=== PATIENT | male | born 1965 | race Caucasian/White ===

== ENCOUNTER 2018-09-24 21:06 | Inpatient (IN) | payer OTHER ==
--- NOTE | 2018-09-24 21:37 | ED Physician Chart ---
ED Chief Complaint/HPI - Patient Information Date Seen:: 09/24/18 Time Seen:: 21:14 Chief Complaint:: swollen legs History of Present Illness:: this is a 53 yo male diabetic, congestive heart failure, atrial fib patient was sent to this er for an evaluation and treatment. he has also been having episodes of aggressive behaviour. the patient is also concerned about a sore on his buttocks. Allergies:: Allergies Allergy/AdvReac Type Severity Reaction Status Date / Time No Known Allergies Allergy Verified 09/24/18 21:08 Vitals:: Vital Signs - 8 hr 09/24/18 21:08 Temp 97.7 F HR 135 RR 18 BP 122/81 O2 Sat % 99 Historian:: Patient, Medical Records Review:: Nurse's Note Reviewed, Transfer documents Reviewed ED Review of Systems - Review of Systems General/Constitutional: No fever, No chills, No weight loss, No weakness, No diaphoresis, Edema, No loss of appetite Skin: Skin lesions (over both legs), Rash (on the face), No rash, No bruising Head: No headache, No light-headedness Eyes: No loss of vision, No pain, No diplopia ENT: No earache, No nasal drainage, No sore throat, No tinnitus Neck: No neck pain, No swelling, No thyromegaly, No stiffness, No mass noted Cardio Vascular: No chest pain, Palpitations, No PND, orthopnea, edema Pulmonary: SOB, No cough, No sputum, No wheezing GI: No nausea, No vomiting, No diarrhea, No pain, No melena, No hematochezia, No constipation, No hematemesis G/U: No dysuria, No frequency, No hematuria Musculoskeletal: No bone or joint pain, No back pain, No muscle pain, Other ( severe 4+ pitting edema of both lower extremities) Endocrine: No polyuria, No polydipsia Psychiatric: Prior psych history, No prior psych history, Depression, No anxiety , No suicidal ideation Hematopoietic: No bruising, No lymphadenopathy Allergic/Immuno: No urticaria, No angioedema Neurological: No syncope, No focal symptoms, No weakness, No paresthesia, No headache, No seizure, No dizziness, No confusion, No vertigo ED Past Medical History - Past Medical History Obtainable: Yes Past Medical History: HTN, DM, CAD, CHF, Asthma/COPD, Dementia Family Medical History - Family Member Mother History Unknown: Yes ED Physical Exam - Physical Examination General/Constitutional: Awake, Well-developed, well-nourished, Alert, No distress, GCS 15, Non-toxic appearing, Ambulatory (unable to walk without help because of the severe edema of both lower extremities.) Head: Atraumatic Eyes: Lids, conjuctiva normal, PERRL, EOMI Skin: Nl inspection, No rash (skin rash on the face and lower extremities.), No skin lesions, No ecchymosis, Well hydrated, No lymphadenopathy ENMT: External ears, nose nl, Nasal exam nl, Lips, teeth, gums nl Neck: Nontender, Full ROM w/o pain, No JVD, No nuchal rigidity, No bruit, No mass, No stridor Respiratory: Nl effort/Exclusion, Clear to Auscultation, No Wheeze/Rhonchi/ Rales (bilateral rales) Cardio Vascular: RRR (rapid rate of 130 and irregular (a-fib)), No murmur, gallop, rubs, NL S1 S2 GI: No tenderness/rebounding/guarding, No organomegaly, No hernia, Normal BS's, Nondistended (g-tube noted in place), No mass/bruits, No McBurney tenderness Other GI comments:: there is a red tender area stage ii decub noted on the coccyx area : No CVA tenderness Extremities: No tenderness or effusion, Full ROM, normal strength in all extremities, No edema, Normal digits & nails Other Extremities comments:: severe edema of both lower extremities Neuro/Psych: Alert/oriented, DTR's symmetric, Normal sensory exam, Normal motor strength, Judgement/insight normal, Mood normal (depressed), Normal gait, No focal deficits Misc: Normal back, No paraspinal tenderness ED Labs/Radiology/EKG Results - Lab Results Results: see blood work done on 09-19-18 noted - Radiology Results Results: chest x-ray = acute pulmonary edema - EKG Interpretations EKG Time:: 21:19 Rate & Rhythm: rate = 130, a fib [place]: left ED Assessment - Assessment General Assessment: chronic chr sever bilateral edema ED Septic Shock - . Is Septic Shock (SBP<90, OR Lactate>4 mmol\L) present?: No - <6hrs of presentation: Vital Signs: Vital Signs - 8 hr 09/24/18 21:08 Temp 97.7 F HR 135 RR 18 BP 122/81 O2 Sat % 99 ED Reassessment (Disposition) - Reassessment Reassessment Condition:: Improved - Diagnosis Diagnosis:: acute pulmonary edema chronic chf diabetes mellitus stage II COCCYX ULCER NOTED - Patient Disposition Discharge/Transfer:: Acute Care w/in this hosp Admitting Medical Physician:: Neo Nixon Condition at Disposition:: Improved
[2018-09-24 21:50] LABS: PaCO2 37.2 mmHg (35.0-45.0); pH 7.32 (7.35-7.45)
[2018-09-24 21:52] LABS: PaO2 27.8 mmHg (80.0-100.0)
[2018-09-24] MEDS ORDERED: Diltiazem 30 mg Tab GT STA (22:50)
[2018-09-24] MEDS ORDERED: Diltiazem 30 mg Tab ONE (23:22)
[2018-09-25 00:21] LABS: URINE SOURCE CLEAN C
[2018-09-25 00:27] LABS: URINE BILIRUBIN NEGATIVE (NEGATIVE); URINE BLOOD LARGE (NEGATIVE); URINE GLUCOSE (UA) >=1000 mg/dL (NEGATIVE); URINE KETONE NEGATIVE (NEGATIVE); URINE LEUKOCYTE ESTERASE TRACE (NEGATIVE); URINE MICROSCOPIC INDICATED? YES; URINE NITRATE POSITIVE (NEGATIVE); URINE PH 5.5 (4.6 - 8.0); URINE PROTEIN 30 mg/dL (NEGATIVE); URINE UROBILINOGEN 0.2 E.U./dL (0.2 - 1.0)
[2018-09-25 00:32] LABS: URINE COLOR YELLOW
[2018-09-25 00:33] LABS: URINE CLARITY SLIGHT HAZY (CLEAR)
[2018-09-25 00:43] LABS: URINE BACTERIA 1+ /hpf (NONE SEEN); URINE EPITHELIAL CELLS FEW /lpf (FEW)
[2018-09-25 02:41] VITALS: BP 121/71
[2018-09-25] MEDS ORDERED: Dextrose 50% 50 mL Abboject IVP PRN (03:47)
[2018-09-25] MEDS ORDERED: GLUCAGON HCl 1 MG KIT IM PRN (03:47)
[2018-09-25] MEDS: INSULIN LISPRO SLIDING SCALE 100 UNITS/ML UNIT SUBQ SCH ×2 (06:40→17:02)
[2018-09-25 06:43] LABS: % BASOPHILS 1.5 % (0.0-2.0); % LYMPHOCYTES 15.8 % (20.0-50.0); % NEUTROPHILS 74.7 % (40.0-80.0); BASOPHILE ABSOLUTE 0.1 Th/cumm (0-0.2); EOSINOPHILE ABSOLUTE 0.1 Th/cmm (0.1-0.4); HEMATOCRIT 37.6 % (41.0-60); HEMOGLOBIN 12.2 gm/dL (12-16); LYMPHOCYTE ABSOLUTE 1.2 Th/cmm (1.5-3.0); MEAN CORPUSCULAR HEMOGLOBIN 28.8 pg (26.0-30.0); MEAN CORPUSCULAR HGB CONC 32.3 pg (28.0-36.0); MEAN PLATELET VOLUME 9.3 fl; MONOCYTE ABSOLUTE 0.4 Th/cmm (0.3-1.0); NEUTROPHILE ABSOLUTE 5.6 Th/cmm (1.8-8.0); PLATELET COUNT 181 Th/cmm (150-400); RED BLOOD COUNT 4.23 Mil/cmm (4.30-5.70); RED CELL DISTRIBUTION WIDTH 22.4 % (11.5-20.0); WHITE BLOOD COUNT 7.4 Th/cmm (4.8-10.8)
[2018-09-25] MEDS ORDERED: cefTRIAXone 1 GM in Sodium Chloride 0.9% 50 ML IV SCH (07:00)
[2018-09-25 07:03] LABS: ALB/GLOB RATIO 1.2 (1.0-1.8); ALBUMIN 3.5 gm/dL (4.2-5.5); ANION GAP 13.7 (7.0-16.0); BILIRUBIN,TOTAL 1.3 mg/dL (0.3-1.0); CALCIUM SERUM 8.5 mg/dL (8.6-10.3); CARBON DIOXIDE 22.1 mEq/L (21.0-31.0); CREATININE - SERUM 2.3 mg/dL (0.7-1.3); GFR AFRICAN-AMERICAN 38.2 ml/min (>90); GFR NON AFRICAN-AMERICAN 31.5 ml/min; POTASSIUM SERUM 4.8 mEq/L (3.5-5.1); TOTAL PROTEIN,SERUM 6.4 gm/dL (6.0-8.3)
[2018-09-25] MEDS ORDERED: Non-Formulary Item 1 EA (Acetaminophen [Acetaminophen] 650 MG) GT PRN (09:27)
[2018-09-25] MEDS ORDERED: ALBUTEROL SULFATE 2.5 MG IH SCH (09:30)
[2018-09-25] MEDS ORDERED: Albuterol Nebulizer 2.5mg/3mL HHN PRN (09:35)
--- NOTE | 2018-09-25 09:46 | Diagnostic Imaging Report ---
CHEST X-RAY: AP view INDICATION: Shortness of breath COMPARISON: None FINDINGS: Right perihilar and right infrahilar infiltrates are noted. Cardiomegaly is noted with atherosclerosis. The osseous structures demonstrate degenerative changes. IMPRESSION: Right perihilar and right infrahilar infiltrates. Clinical correlation is recommended. There may be a mild degree of congestion. Cardiomegaly and atherosclerotic vascular disease.
[2018-09-25] MEDS ORDERED: Diltiazem 5 mg/mL 5mL Vial IVP PRN (11:22)
[2018-09-25] MEDS ORDERED: Non-Formulary Item 1 EA (Apixaban [Eliquis] 5 MG) PO SCH (17:00)
--- NOTE | 2018-09-25 18:08 | History & Physical ---
ADMIT DATE: 09/25/2018 HISTORY OF PRESENT ILLNESS: This is a 53-year-old male diabetic patient, history of congestive heart failure, history of atrial fibrillation. This patient is a resident of [facility] where I am following the patient and apparently the patient did an aggressive behavior and also was complaining of soreness in his back with decubiti and also has bilateral leg swelling and cellulitis. He was evaluated and was admitted for those reasons including congestive heart failure, atrial fibrillation, diabetes uncontrolled, asthma, COPD exacerbation, dementia, aggressive behavior, bilateral lower leg cellulitis, buttock decubiti, rule out sepsis and encephalopathy. The patient's nurses' notes were reviewed, Emergency Room notes were reviewed. REVIEW OF SYSTEMS: No fever, skin lesions of both lower legs as well as a rash on the face as well as decubiti in the buttocks area. Otherwise, negative. PAST MEDICAL HISTORY: As enumerated before, history of hypertension, history of diabetes, history of coronary artery disease, history of congestive heart failure, history of asthma/COPD, history of dementia. PHYSICAL EXAMINATION: GENERAL: The patient is awake, alert, not in acute distress. VITAL SIGNS: Stable. HEAD: Normal. ENT: Normal. Face was flushed. NECK: Supple, nontender. LUNGS: Bilaterally decreased. CARDIOVASCULAR: S1, S2 heard. ABDOMEN: G-tube is in place. EXTREMITIES: Bilateral leg swelling as well as erythema and tenderness. CENTRAL NERVOUS SYSTEM: The patient is awake, alert, slightly confused, at times is very aggressive. DIAGNOSES: Bilateral lower leg cellulitis, sacral decubiti, sepsis, aggressive behavior, increasing dementia, history of dementia, history of hypertension, congestive heart failure, history of diabetes, history of coronary artery disease. PLAN: The patient is going to have septic workup. We are going to give IV antibiotics. I will have ID doctor see the patient and I will have Wound Care to take care of the patient. I will also have psychiatrist, Dr. Mancini, see the patient, and I will also have Dr. Jose Harrison see the patient. I will follow the patient. JOB# [id number]
[2018-09-25] MEDS ORDERED: Piperacillin Sodium/Tazobact 3.375 gm Vial IV ONE (21:09)
[2018-09-26 05:04] LABS: % EOSINOPHILS 0.9 % (0.0-5.0); % LYMPHOCYTES 14.3 % (20.0-50.0); % NEUTROPHILS 76.8 % (40.0-80.0); BASOPHILE ABSOLUTE 0.1 Th/cumm (0-0.2); EOSINOPHILE ABSOLUTE 0.1 Th/cmm (0.1-0.4); HEMATOCRIT 35.4 % (41.0-60); HEMOGLOBIN 11.7 gm/dL (12-16); LYMPHOCYTE ABSOLUTE 1.1 Th/cmm (1.5-3.0); MEAN CELL VOLUME 87.9 fl (80-99); MEAN CORPUSCULAR HEMOGLOBIN 29.1 pg (26.0-30.0); MEAN CORPUSCULAR HGB CONC 33.1 pg (28.0-36.0); MEAN PLATELET VOLUME 9.1 fl; MONOCYTE ABSOLUTE 0.6 Th/cmm (0.3-1.0); NEUTROPHILE ABSOLUTE 6.1 Th/cmm (1.8-8.0); PLATELET COUNT 188 Th/cmm (150-400); RED BLOOD COUNT 4.03 Mil/cmm (4.30-5.70); RED CELL DISTRIBUTION WIDTH 21.5 % (11.5-20.0)
[2018-09-26 05:45] LABS: CALCIUM SERUM 8.5 mg/dL (8.6-10.3); CARBON DIOXIDE 19.9 mEq/L (21.0-31.0); CREATININE - SERUM 2.3 mg/dL (0.7-1.3); GFR AFRICAN-AMERICAN 38.2 ml/min (>90); GFR NON AFRICAN-AMERICAN 31.5 ml/min; POTASSIUM SERUM 3.9 mEq/L (3.5-5.1)
[2018-09-26] MEDS ORDERED: Piperacillin Sodium/Tazobact 3.375 gm Vial IV ONE (06:18)
--- NOTE | 2018-09-26 06:18 | Consultation ---
DATE OF CONSULTATION: 09/25/2018 INFECTIOUS DISEASE CONSULTATION REFERRING PHYSICIAN: Dr. Nixon. REASON FOR CONSULTATION: Cellulitis of both legs and arms. HISTORY OF PRESENT ILLNESS: The patient is a 53-year-old male with a past medical history of CHF, diabetes mellitus type 2, and atrial fibrillation, brought to the ER for aggressive behavior. The patient also found to have redness and swelling of both lower extremities. There are some scabbed wounds also. No pus, no discharge. Similarly, the patient has some redness of the forearm and hands. In the back, the patient had a stage 2 ulceration of the inner side of the cheek. On initial evaluation, the patient was afebrile and WBC count was 7400. The patient also found to have mild UTI. The patient was started on Rocephin, which was changed to vancomycin and Zosyn. ID consult was called for further evaluation and management. PAST MEDICAL HISTORY: 1. Diabetes mellitus type 2. 2. CHF. 3. Atrial fibrillation. 4. Coronary artery disease. 5. Asthma. 6. COPD. 7. Dementia. ALLERGIES: NKDA. MEDICATIONS: As per medication reconciliation sheet. Antibiotic balbuena, currently the patient is receiving vancomycin and Zosyn started today just few hours ago. SOCIAL HISTORY: The patient lives in a nursing facility. No history of smoking, alcohol or drug use. FAMILY HISTORY: Unknown. REVIEW OF SYSTEMS: The patient is a poor historian, unable to give any history, but as per the records: GENERAL: The patient has no fever, no chills. HEENT: No diplopia, no photophobia. RESPIRATORY: No cough, no shortness of breath. CARDIOVASCULAR: No chest pain or palpitation. GASTROINTESTINAL: No nausea, no vomiting, no diarrhea, no constipation. GENITOURINARY: No dysuria. NEUROLOGIC: Alert and awake. No focal neuro deficit. EXTREMITIES: The patient has swelling and redness of both lower extremities with a scabbed wound. PHYSICAL EXAMINATION: VITAL SIGNS: Current vital signs shows temperature 97.3 degrees Fahrenheit, pulse 130, respiration 20, blood pressure is 111/70. GENERAL: The patient is comfortable lying in his bed, not in acute distress. Obese. HEENT: Head is normocephalic, atraumatic. Oral cavity moist, pink tongue. NECK: Supple, no JVD, no carotid bruit. Trachea midline. CHEST: Bilateral breath sounds. No crackles or wheezing. Decreased breath sounds. HEART: S1, S2 within normal limits. Regular rhythm. No murmur, no gallop. ABDOMEN: Soft, nontender, nondistended. Bowel sounds present. EXTREMITIES: No cyanosis, no clubbing. Edema is present. Bilaterally the patient has swelling and redness with scab wounds on both legs and feet. Upper extremity, also some erythema in forearm and hand. LABORATORY DATA: Current lab shows WBC count 7400, hemoglobin 12.2, hematocrit 37.8, platelets are 181,000, neutrophils 75%. Sodium is 134, potassium 4.8, chloride 103, bicarbonate is 22, BUN is 55, creatinine 2.3, and glucose is 396. IMPRESSION: 1. Cellulitis of both legs. 2. Cellulitis of both arms. 3. Congestive heart failure. 4. Sacral decubitus ulcer stage II. 5. Aggressive behavior. 6. Dementia. 7. Hypertension. 8. Coronary artery disease. 9. Renal insufficiency, chronic versus acute. 10. Chronic obstructive pulmonary disease, asthma. RECOMMENDATIONS: We will continue vancomycin and Zosyn. Monitor creatinine closely. Thank you, Dr. Nixon for involving me in taking care of this patient. JOB# [id number]
[2018-09-26] MEDS: INSULIN LISPRO SLIDING SCALE 100 UNITS/ML UNIT SUBQ SCH ×2 (06:48→15:48)
[2018-09-26] MEDS ORDERED: Vancomycin HCl 1.5 GM in Sodium Chloride 0.9% 500 ML IV ONE (09:30)
--- NOTE | 2018-09-26 13:00 | Infectious Disease Prog Note ---
Infectious Disease Subjective - Review of Systems Service Date: 09/26/18 Subjective: There is no new change, no fever. Infectious Disease Objective - Results Result Diagrams: 09/26/18 04:50 09/26/18 04:50 Recent Labs: Laboratory Last Values WBC 8.0 Th/cmm (4.8-10.8) 09/26/18 04:50 RBC 4.03 Mil/cmm (4.30-5.70) L 09/26/18 04:50 Hgb 11.7 gm/dL (12-16) L 09/26/18 04:50 Hct 35.4 % (41.0-60) L 09/26/18 04:50 MCV 87.9 fl (80-99) 09/26/18 04:50 MCH 29.1 pg (26.0-30.0) 09/26/18 04:50 MCHC Differential 33.1 pg (28.0-36.0) 09/26/18 04:50 RDW 21.5 % (11.5-20.0) H 09/26/18 04:50 Plt Count 188 Th/cmm (150-400) 09/26/18 04:50 MPV 9.1 fl 09/26/18 04:50 Neutrophils % 76.8 % (40.0-80.0) 09/26/18 04:50 Lymphocytes % 14.3 % (20.0-50.0) L 09/26/18 04:50 Monocytes % 7.0 % (2.0-10.0) 09/26/18 04:50 Eosinophils % 0.9 % (0.0-5.0) 09/26/18 04:50 Basophils % 1.0 % (0.0-2.0) 09/26/18 04:50 Specimen Source aterial 09/24/18 21:36 Sample Site LB 09/24/18 21:36 pH 7.32 (7.35-7.45) L 09/24/18 21:36 pCO2 37.2 mmHg (35.0-45.0) 09/24/18 21:36 pO2 27.8 mmHg (80.0-100.0) L* 09/24/18 21:36 HCO3 18.6 mEq/L (20.0-26.0) L 09/24/18 21:36 Base Excess -6.8 mEq/L (-3.0-3.0) L 09/24/18 21:36 O2 Saturation 47.0 % (92.0-100.0) L 09/24/18 21:36 Phuc Test n/a 09/24/18 21:36 Vent Rate n/a 09/24/18 21:36 Inspired O2 21 09/24/18 21:36 Tidal Volume n/a 09/24/18 21:36 PEEP n/a 09/24/18 21:36 Pressure (ins/psv/peep) n/a 09/24/18 21:36 Critical Value dVassel 09/24/18 21:36 Sodium 139 mEq/L (136-145) 09/26/18 04:50 Potassium 3.9 mEq/L (3.5-5.1) 09/26/18 04:50 Chloride 107 mEq/L (98-107) 09/26/18 04:50 Carbon Dioxide 19.9 mEq/L (21.0-31.0) L 09/26/18 04:50 Anion Gap 16.0 (7.0-16.0) 09/26/18 04:50 BUN 56 mg/dL (7-25) H 09/26/18 04:50 Creatinine 2.3 mg/dL (0.7-1.3) H 09/26/18 04:50 Est GFR ( Amer) 38.2 ml/min (>90) 09/26/18 04:50 Est GFR (Non-Af Amer) 31.5 ml/min 09/26/18 04:50 BUN/Creatinine Ratio 24.3 09/26/18 04:50 Glucose 214 mg/dL (70-105) H D 09/26/18 04:50 POC Glucose 205 MG/DL (70 - 105) H 09/26/18 06:41 Calcium 8.5 mg/dL (8.6-10.3) L 09/26/18 04:50 Total Bilirubin 1.3 mg/dL (0.3-1.0) H 09/25/18 06:20 AST 13 U/L (13-39) 09/25/18 06:20 ALT 58 U/L (7-52) H 09/25/18 06:20 Alkaline Phosphatase 150 U/L (34-104) H 09/25/18 06:20 Creatine Kinase 34 U/L (30-223) 09/25/18 06:20 Troponin I 0.05 ng/mL (0.01-0.05) 09/25/18 06:20 Total Protein 6.4 gm/dL (6.0-8.3) 09/25/18 06:20 Albumin 3.5 gm/dL (4.2-5.5) L 09/25/18 06:20 Globulin 2.9 gm/dL 09/25/18 06:20 Albumin/Globulin Ratio 1.2 (1.0-1.8) 09/25/18 06:20 Triglycerides 88 mg/dL (<150) 09/25/18 06:20 Cholesterol 99 mg/dL (<200) 09/25/18 06:20 LDL Cholesterol Direct 56 mg/dL (75-193) L 09/25/18 06:20 HDL Cholesterol 38 mg/dL (23-92) 09/25/18 06:20 TSH 5.29 uIU/ml (0.34-5.60) 09/25/18 06:20 Urine Source CLEAN C 09/24/18 23:45 Urine Color YELLOW 09/24/18 23:45 Urine Clarity SLIGHT HAZY (CLEAR) 09/24/18 23:45 Urine pH 5.5 (4.6 - 8.0) 09/24/18 23:45 Ur Specific [place] 1.015 (1.005-1.030) 09/24/18 23:45 Urine Protein 30 mg/dL (NEGATIVE) H 09/24/18 23:45 Urine Glucose (UA) >=1000 mg/dL (NEGATIVE) H 09/24/18 23:45 Urine Ketones NEGATIVE mg/dL (NEGATIVE) 09/24/18 23:45 Urine Blood LARGE (NEGATIVE) H 09/24/18 23:45 Urine Nitrate POSITIVE (NEGATIVE) H 09/24/18 23:45 Urine Bilirubin NEGATIVE (NEGATIVE) 09/24/18 23:45 Urine Urobilinogen 0.2 E.U./dL (0.2 - 1.0) 09/24/18 23:45 Ur Leukocyte Esterase TRACE (NEGATIVE) H 09/24/18 23:45 Urine RBC 2-5 /hpf (0-5) H 09/24/18 23:45 Urine WBC 6-10 /hpf (0-5) 09/24/18 23:45 Ur Epithelial Cells FEW /lpf (FEW) 09/24/18 23:45 Urine Bacteria 1+ /hpf (NONE SEEN) H 09/24/18 23:45 Random Vancomycin 7.1 ug/mL (5.0-40.0) 09/26/18 04:50 - Physical Exam Vitals and I&O: Vital Signs Temp 97.4 F 09/26/18 08:36 Pulse 76 09/26/18 08:59 Resp 20 09/26/18 08:36 BP 104/62 09/26/18 09:00 Pulse Ox 93 09/26/18 08:36 Intake & Output 09/25/18 09/26/18 09/26/18 18:59 06:59 18:59 Intake Total 50 300 50 Balance 50 300 50 Weight (lbs) 119.295 kg Intake: Intake, IV Amount 50 300 50 Piperacillin Sodium/ 50 50 Tazobact 3.375 gm In Sodium Chloride 0.9% 50 ml @ 100 mls/hr IV Q8HR [facility] Rx#:[id number] Vancomycin HCl 1 gm In 250 Sodium Chloride 0.9% 250 ml @ 165 mls/hr IV 1900 [facility] Rx#:[id number] cefTRIAXone 1 gm In 50 Sodium Chloride 0.9% 50 ml @ 100 mls/hr IV Q24H [facility] Rx#:[id number] Other: # Bowel Movements 2 Stool Characteristics Brown Soft Brown Weight Source Bedscale Active Medications: Current Medications Acetaminophen (Tylenol) 650 mg GT Q4HR PRN PRN Reason: Pain or Fever >101 Stop: 11/24/18 09:33 Albuterol Sulfate (Albuterol 2.5mg/3ml Neb Ud) 2.5 mg HHN Q6HRT PRN PRN Reason: Shortness of Breath Stop: 11/24/18 09:34 Amiodarone HCl (Cordarone) 200 mg PO BID [facility] Stop: 11/24/18 16:59 Last Admin: 09/26/18 08:59 Dose: 200 mg Ascorbic Acid (Vitamin C) 500 mg PO DAILY [facility] Stop: 11/25/18 08:59 Last Admin: 09/26/18 08:59 Dose: 500 mg Dextrose (D50w) 50 ml IVP PRN PRN PRN Reason: Blood Glucose less than 70 Stop: 11/24/18 03:46 Dextrose (Glutose 40%) 18.75 gm PO PRN PRN PRN Reason: Blood Glucose less than 70 Stop: 11/24/18 03:46 Diltiazem HCl (Cardizem) 20 mg IVP Q4HR PRN PRN Reason: A FIB Stop: 11/24/18 11:21 Last Admin: 09/25/18 11:52 Dose: 20 mg Furosemide (Lasix) 40 mg IVP DAILY [facility] Stop: 11/24/18 08:59 Last Admin: 09/26/18 09:00 Dose: 40 mg Glucagon (Glucagen) 1 mg IM PRN PRN PRN Reason: Blood Glucose less than 70 Stop: 11/24/18 03:46 Piperacillin Sod/Tazobactam (Sod 3.375 gm/ Sodium Chloride) 50 mls @ 100 mls/ hr IV Q8HR [facility] Stop: 11/24/18 20:59 Last Admin: 09/26/18 12:45 Dose: 100 mls/hr Insulin Human Lispro (Humalog Insulin Sliding Scale) 0 units SUBQ BIDAC [facility]; Protocol Stop: 11/24/18 07:29 Last Admin: 09/26/18 06:48 Dose: 4 units Lorazepam (Ativan) 1 mg IVP Q4HR PRN; Protocol PRN Reason: Anxiety Stop: 11/24/18 02:37 Miscellaneous (Vancomycin Iv Per Pharmacy) 1 ea MC PRN PRN PRN Reason: PROTOCOL Stop: 11/24/18 17:22 Rivaroxaban (Xarelto) 20 mg PO QDPC [facility] Stop: 11/25/18 08:59 Last Admin: 09/26/18 09:00 Dose: 20 mg General: no acute distress, well developed, well nourished HEENT: atraumatic, normocephalic, PERRLA, EOMI Neck: supple, no thyromegaly Cardiovascular: S1S2, regular Lungs: clear to auscultation bilaterally, clear to percussion Abdomen: soft, bowel sounds, no tender, no distended, no mass, no hepatomegaly, no splenomegaly Extremities: edema, other (bilateral leg erythema with scabbed wounds.), no cyanosis, no clubbing Neurological: awake Infectious Disease Assmt/Plan - Assessment Assessment: 1. Cellulitis of both legs. 2. Cellulitis of both arms. 3. Congestive heart failure. 4. Sacral decubitus ulcer stage II. 5. Aggressive behavior. 6. Dementia. 7. Hypertension. 8. Coronary artery disease. 9. Renal insufficiency, chronic versus acute. 10. Chronic obstructive pulmonary disease, asthma. - Plan Plan: CPm.
--- NOTE | 2018-09-26 13:27 | Internal Medicine Prog Note ---
Internal Medicine Subjective - Subjective Service Date: 09/26/18 Patient seen and examined:: chart reviewed Patient is:: awake, verbal, agitated, confused Patient Complaints of:: other (bilateral lower leg cellulitis, buttock decubiti noted.) Per staff patient has:: no adverse event, no episodes of fall Internal Medicine Objective - Results Result Diagrams: 09/26/18 04:50 09/26/18 04:50 Recent Labs: Laboratory Last Values WBC 8.0 Th/cmm (4.8-10.8) 09/26/18 04:50 RBC 4.03 Mil/cmm (4.30-5.70) L 09/26/18 04:50 Hgb 11.7 gm/dL (12-16) L 09/26/18 04:50 Hct 35.4 % (41.0-60) L 09/26/18 04:50 MCV 87.9 fl (80-99) 09/26/18 04:50 MCH 29.1 pg (26.0-30.0) 09/26/18 04:50 MCHC Differential 33.1 pg (28.0-36.0) 09/26/18 04:50 RDW 21.5 % (11.5-20.0) H 09/26/18 04:50 Plt Count 188 Th/cmm (150-400) 09/26/18 04:50 MPV 9.1 fl 09/26/18 04:50 Neutrophils % 76.8 % (40.0-80.0) 09/26/18 04:50 Lymphocytes % 14.3 % (20.0-50.0) L 09/26/18 04:50 Monocytes % 7.0 % (2.0-10.0) 09/26/18 04:50 Eosinophils % 0.9 % (0.0-5.0) 09/26/18 04:50 Basophils % 1.0 % (0.0-2.0) 09/26/18 04:50 Specimen Source aterial 09/24/18 21:36 Sample Site LB 09/24/18 21:36 pH 7.32 (7.35-7.45) L 09/24/18 21:36 pCO2 37.2 mmHg (35.0-45.0) 09/24/18 21:36 pO2 27.8 mmHg (80.0-100.0) L* 09/24/18 21:36 HCO3 18.6 mEq/L (20.0-26.0) L 09/24/18 21:36 Base Excess -6.8 mEq/L (-3.0-3.0) L 09/24/18 21:36 O2 Saturation 47.0 % (92.0-100.0) L 09/24/18 21:36 Phuc Test n/a 09/24/18 21:36 Vent Rate n/a 09/24/18 21:36 Inspired O2 21 09/24/18 21:36 Tidal Volume n/a 09/24/18 21:36 PEEP n/a 09/24/18 21:36 Pressure (ins/psv/peep) n/a 09/24/18 21:36 Critical Value dVassel 09/24/18 21:36 Sodium 139 mEq/L (136-145) 09/26/18 04:50 Potassium 3.9 mEq/L (3.5-5.1) 09/26/18 04:50 Chloride 107 mEq/L (98-107) 09/26/18 04:50 Carbon Dioxide 19.9 mEq/L (21.0-31.0) L 09/26/18 04:50 Anion Gap 16.0 (7.0-16.0) 09/26/18 04:50 BUN 56 mg/dL (7-25) H 09/26/18 04:50 Creatinine 2.3 mg/dL (0.7-1.3) H 09/26/18 04:50 Est GFR ( Amer) 38.2 ml/min (>90) 09/26/18 04:50 Est GFR (Non-Af Amer) 31.5 ml/min 09/26/18 04:50 BUN/Creatinine Ratio 24.3 09/26/18 04:50 Glucose 214 mg/dL (70-105) H D 09/26/18 04:50 POC Glucose 205 MG/DL (70 - 105) H 09/26/18 06:41 Calcium 8.5 mg/dL (8.6-10.3) L 09/26/18 04:50 Total Bilirubin 1.3 mg/dL (0.3-1.0) H 09/25/18 06:20 AST 13 U/L (13-39) 09/25/18 06:20 ALT 58 U/L (7-52) H 09/25/18 06:20 Alkaline Phosphatase 150 U/L (34-104) H 09/25/18 06:20 Creatine Kinase 34 U/L (30-223) 09/25/18 06:20 Troponin I 0.05 ng/mL (0.01-0.05) 09/25/18 06:20 Total Protein 6.4 gm/dL (6.0-8.3) 09/25/18 06:20 Albumin 3.5 gm/dL (4.2-5.5) L 09/25/18 06:20 Globulin 2.9 gm/dL 09/25/18 06:20 Albumin/Globulin Ratio 1.2 (1.0-1.8) 09/25/18 06:20 Triglycerides 88 mg/dL (<150) 09/25/18 06:20 Cholesterol 99 mg/dL (<200) 09/25/18 06:20 LDL Cholesterol Direct 56 mg/dL (75-193) L 09/25/18 06:20 HDL Cholesterol 38 mg/dL (23-92) 09/25/18 06:20 TSH 5.29 uIU/ml (0.34-5.60) 09/25/18 06:20 Urine Source CLEAN C 09/24/18 23:45 Urine Color YELLOW 09/24/18 23:45 Urine Clarity SLIGHT HAZY (CLEAR) 09/24/18 23:45 Urine pH 5.5 (4.6 - 8.0) 09/24/18 23:45 Ur Specific [place] 1.015 (1.005-1.030) 09/24/18 23:45 Urine Protein 30 mg/dL (NEGATIVE) H 09/24/18 23:45 Urine Glucose (UA) >=1000 mg/dL (NEGATIVE) H 09/24/18 23:45 Urine Ketones NEGATIVE mg/dL (NEGATIVE) 09/24/18 23:45 Urine Blood LARGE (NEGATIVE) H 09/24/18 23:45 Urine Nitrate POSITIVE (NEGATIVE) H 09/24/18 23:45 Urine Bilirubin NEGATIVE (NEGATIVE) 09/24/18 23:45 Urine Urobilinogen 0.2 E.U./dL (0.2 - 1.0) 09/24/18 23:45 Ur Leukocyte Esterase TRACE (NEGATIVE) H 09/24/18 23:45 Urine RBC 2-5 /hpf (0-5) H 09/24/18 23:45 Urine WBC 6-10 /hpf (0-5) 09/24/18 23:45 Ur Epithelial Cells FEW /lpf (FEW) 09/24/18 23:45 Urine Bacteria 1+ /hpf (NONE SEEN) H 09/24/18 23:45 Random Vancomycin 7.1 ug/mL (5.0-40.0) 09/26/18 04:50 - Physical Exam Vitals and I&O: Vital Signs Temp 97.3 F 09/26/18 12:00 Pulse 71 09/26/18 12:00 Resp 19 09/26/18 12:00 BP 111/69 09/26/18 12:00 Pulse Ox 95 09/26/18 12:00 Intake & Output 09/25/18 09/26/18 09/26/18 18:59 06:59 18:59 Intake Total 50 300 50 Balance 50 300 50 Weight (lbs) 119.295 kg Intake: Intake, IV Amount 50 300 50 Piperacillin Sodium/ 50 50 Tazobact 3.375 gm In Sodium Chloride 0.9% 50 ml @ 100 mls/hr IV Q8HR [facility] Rx#:[id number] Vancomycin HCl 1 gm In 250 Sodium Chloride 0.9% 250 ml @ 165 mls/hr IV 1900 [facility] Rx#:[id number] cefTRIAXone 1 gm In 50 Sodium Chloride 0.9% 50 ml @ 100 mls/hr IV Q24H [facility] Rx#:[id number] Other: # Bowel Movements 2 Stool Characteristics Brown Soft Brown Weight Source Bedscale Active Medications: Current Medications Acetaminophen (Tylenol) 650 mg GT Q4HR PRN PRN Reason: Pain or Fever >101 Stop: 11/24/18 09:33 Albuterol Sulfate (Albuterol 2.5mg/3ml Neb Ud) 2.5 mg HHN Q6HRT PRN PRN Reason: Shortness of Breath Stop: 11/24/18 09:34 Amiodarone HCl (Cordarone) 200 mg PO BID [facility] Stop: 11/24/18 16:59 Last Admin: 09/26/18 08:59 Dose: 200 mg Ascorbic Acid (Vitamin C) 500 mg PO DAILY [facility] Stop: 11/25/18 08:59 Last Admin: 09/26/18 08:59 Dose: 500 mg Dextrose (D50w) 50 ml IVP PRN PRN PRN Reason: Blood Glucose less than 70 Stop: 11/24/18 03:46 Dextrose (Glutose 40%) 18.75 gm PO PRN PRN PRN Reason: Blood Glucose less than 70 Stop: 11/24/18 03:46 Diltiazem HCl (Cardizem) 20 mg IVP Q4HR PRN PRN Reason: A FIB Stop: 11/24/18 11:21 Last Admin: 09/25/18 11:52 Dose: 20 mg Furosemide (Lasix) 40 mg IVP DAILY [facility] Stop: 11/24/18 08:59 Last Admin: 09/26/18 09:00 Dose: 40 mg Glucagon (Glucagen) 1 mg IM PRN PRN PRN Reason: Blood Glucose less than 70 Stop: 11/24/18 03:46 Piperacillin Sod/Tazobactam (Sod 3.375 gm/ Sodium Chloride) 50 mls @ 100 mls/ hr IV Q8HR [facility] Stop: 11/24/18 20:59 Last Admin: 09/26/18 12:45 Dose: 100 mls/hr Insulin Human Lispro (Humalog Insulin Sliding Scale) 0 units SUBQ BIDAC [facility]; Protocol Stop: 11/24/18 07:29 Last Admin: 09/26/18 06:48 Dose: 4 units Lorazepam (Ativan) 1 mg IVP Q4HR PRN; Protocol PRN Reason: Anxiety Stop: 11/24/18 02:37 Miscellaneous (Vancomycin Iv Per Pharmacy) 1 ea MC PRN PRN PRN Reason: PROTOCOL Stop: 11/24/18 17:22 Rivaroxaban (Xarelto) 20 mg PO QDPC [facility] Stop: 11/25/18 08:59 Last Admin: 09/26/18 09:00 Dose: 20 mg General: weak, demented HEENT: NC/AT, PERRLA Neck: Supple, No JVD Lungs: other (mild sob) Cardiovascular: RRR, Normal S1 Abdomen: soft, non-tender Extremities: edema, erythema Neurological: no change, disorganized Internal Medicine Assmt/Plan - Assessment Assessment: Cellulitis of both legs. Cellulitis of both arms. Sacral Decubitus Ulcer Stage II. Aggressive Behavior. Renal insufficency, chronic vs acute. Mild UTI. Atrial Fibrillation. HTN. Diabetes. Coronary Artery Disease. Congestive Heart Failure. Asthma/Copd. Dementia. - Plan Plan: Continuation of care. Continue antibiotics and present meds as directed Monitor vitals Monitor diet Respiratory treatments prn Followup with ID and Psych. Local skin care and wound care prn Fal precaution Continue present care management Nutritional Asmnt/Malnutr-PDOC - Dietary Evaluation Malnutrition Findings (Please click <Entered> for more info): see orders.
[2018-09-26] MEDS: Venelex 60gm Tube TP SCH (18:45)
--- NOTE | 2018-09-26 22:45 | Consultation ---
DATE OF CONSULTATION: 09/25/[address] Nixon HISTORY OF PRESENT ILLNESS: This is a 53-year-old male patient who was brought to the Emergency Room with aggressive behavior. The patient was found to have cellulitis of both upper and lower extremity and atrial fibrillation with congestive heart failure and hence, Cardiology consult was requested. PAST MEDICAL HISTORY: Atrial fibrillation, congestive heart failure, diabetes mellitus type 2, coronary artery disease, dementia, COPD, asthma, sacral decubitus ulcer, and diabetic chronic kidney disease stage III. FAMILY HISTORY: Unremarkable. SOCIAL HISTORY: No history of smoking, alcohol abuse. ALLERGIES: None. PHYSICAL EXAMINATION: VITAL SIGNS: Blood pressure 126/70, pulse 80 and irregular, respirations 28. HEAD: Normocephalic. No lumps or bumps. EYES: Pupils equal, reactive to light. Fundi show AV nicking, sclerae white, conjunctivae pink. NECK: Carotid 2+. Normal upstroke. JVD 10 cm above sternal angle. Thyroid not palpable. Lymph nodes not palpable. CHEST: Shows increased AP diameter. No kyphosis, scoliosis. LUNGS: Bilateral rales. Decreased breath sounds both the bases. HEART: PMI sixth intercostal space with lateral to midclavicular line. S1 irregular. S2, S3, S4, soft systolic murmur. ABDOMEN: Soft. Liver, spleen not palpable. No organomegaly. Bowel sounds active. NEUROLOGIC: Unremarkable. EXTREMITIES: The patient has cellulitis in both upper and lower extremities. The patient also has sacral decubitus ulcer stage II. PLAN: The patient to continue present management. We will get echocardiogram and IV Lasix and IV antibiotics and monitor the patient, also have a psych eval for aggressive behavior. JOB# [id number]
[2018-09-27 07:04] LABS: % EOSINOPHILS 2.3 % (0.0-5.0); % LYMPHOCYTES 18.2 % (20.0-50.0); % MONOCYTES 6.1 % (2.0-10.0); % NEUTROPHILS 73.4 % (40.0-80.0); EOSINOPHILE ABSOLUTE 0.2 Th/cmm (0.1-0.4); HEMATOCRIT 37.1 % (41.0-60); HEMOGLOBIN 12.2 gm/dL (12-16); LYMPHOCYTE ABSOLUTE 1.5 Th/cmm (1.5-3.0); MEAN CELL VOLUME 88.3 fl (80-99); MEAN CORPUSCULAR HGB CONC 32.8 pg (28.0-36.0); MEAN PLATELET VOLUME 9.3 fl; MONOCYTE ABSOLUTE 0.5 Th/cmm (0.3-1.0); NEUTROPHILE ABSOLUTE 6.3 Th/cmm (1.8-8.0); PLATELET COUNT 190 Th/cmm (150-400); RED BLOOD COUNT 4.19 Mil/cmm (4.30-5.70); WHITE BLOOD COUNT 8.5 Th/cmm (4.8-10.8)
[2018-09-27 07:22] LABS: ANION GAP 16.3 (7.0-16.0); CALCIUM SERUM 8.4 mg/dL (8.6-10.3); CARBON DIOXIDE 19.6 mEq/L (21.0-31.0); CREATININE - SERUM 2.2 mg/dL (0.7-1.3); GFR AFRICAN-AMERICAN 40.2 ml/min (>90); GFR NON AFRICAN-AMERICAN 33.2 ml/min; POTASSIUM SERUM 3.9 mEq/L (3.5-5.1)
[2018-09-27] MEDS: INSULIN LISPRO SLIDING SCALE 100 UNITS/ML UNIT SUBQ SCH ×2 (07:47→17:43)
--- NOTE | 2018-09-27 11:49 | General Progress Note ---
Subjective - Review of Systems Service Date: 09/27/18 Subjective: Patient has complained of mild discomfort both upper lower extremity patient still has less aggressive Objective - Results Result Diagrams: 09/27/18 05:55 09/27/18 05:55 Recent Labs: Laboratory Last Values WBC 8.5 Th/cmm (4.8-10.8) 09/27/18 05:55 RBC 4.19 Mil/cmm (4.30-5.70) L 09/27/18 05:55 Hgb 12.2 gm/dL (12-16) 09/27/18 05:55 Hct 37.1 % (41.0-60) L 09/27/18 05:55 MCV 88.3 fl (80-99) 09/27/18 05:55 MCH 29.0 pg (26.0-30.0) 09/27/18 05:55 MCHC Differential 32.8 pg (28.0-36.0) 09/27/18 05:55 RDW 22.0 % (11.5-20.0) H 09/27/18 05:55 Plt Count 190 Th/cmm (150-400) 09/27/18 05:55 MPV 9.3 fl 09/27/18 05:55 Neutrophils % 73.4 % (40.0-80.0) 09/27/18 05:55 Lymphocytes % 18.2 % (20.0-50.0) L 09/27/18 05:55 Monocytes % 6.1 % (2.0-10.0) 09/27/18 05:55 Eosinophils % 2.3 % (0.0-5.0) 09/27/18 05:55 Basophils % 0.0 % (0.0-2.0) 09/27/18 05:55 Specimen Source aterial 09/24/18 21:36 Sample Site LB 09/24/18 21:36 pH 7.32 (7.35-7.45) L 09/24/18 21:36 pCO2 37.2 mmHg (35.0-45.0) 09/24/18 21:36 pO2 27.8 mmHg (80.0-100.0) L* 09/24/18 21:36 HCO3 18.6 mEq/L (20.0-26.0) L 09/24/18 21:36 Base Excess -6.8 mEq/L (-3.0-3.0) L 09/24/18 21:36 O2 Saturation 47.0 % (92.0-100.0) L 09/24/18 21:36 Phuc Test n/a 09/24/18 21:36 Vent Rate n/a 09/24/18 21:36 Inspired O2 21 09/24/18 21:36 Tidal Volume n/a 09/24/18 21:36 PEEP n/a 09/24/18 21:36 Pressure (ins/psv/peep) n/a 09/24/18 21:36 Critical Value dVassel 09/24/18 21:36 Sodium 138 mEq/L (136-145) 09/27/18 05:55 Potassium 3.9 mEq/L (3.5-5.1) 09/27/18 05:55 Chloride 106 mEq/L (98-107) 09/27/18 05:55 Carbon Dioxide 19.6 mEq/L (21.0-31.0) L 09/27/18 05:55 Anion Gap 16.3 (7.0-16.0) H 09/27/18 05:55 BUN 51 mg/dL (7-25) H 09/27/18 05:55 Creatinine 2.2 mg/dL (0.7-1.3) H 09/27/18 05:55 Est GFR ( Amer) 40.2 ml/min (>90) 09/27/18 05:55 Est GFR (Non-Af Amer) 33.2 ml/min 09/27/18 05:55 BUN/Creatinine Ratio 23.2 09/27/18 05:55 Glucose 210 mg/dL (70-105) H 09/27/18 05:55 POC Glucose 188 MG/DL (70 - 105) H 09/27/18 05:44 Calcium 8.4 mg/dL (8.6-10.3) L 09/27/18 05:55 Total Bilirubin 1.3 mg/dL (0.3-1.0) H 09/25/18 06:20 AST 13 U/L (13-39) 09/25/18 06:20 ALT 58 U/L (7-52) H 09/25/18 06:20 Alkaline Phosphatase 150 U/L (34-104) H 09/25/18 06:20 Creatine Kinase 34 U/L (30-223) 09/25/18 06:20 Troponin I 0.05 ng/mL (0.01-0.05) 09/25/18 06:20 Total Protein 6.4 gm/dL (6.0-8.3) 09/25/18 06:20 Albumin 3.5 gm/dL (4.2-5.5) L 09/25/18 06:20 Globulin 2.9 gm/dL 09/25/18 06:20 Albumin/Globulin Ratio 1.2 (1.0-1.8) 09/25/18 06:20 Triglycerides 88 mg/dL (<150) 09/25/18 06:20 Cholesterol 99 mg/dL (<200) 09/25/18 06:20 LDL Cholesterol Direct 56 mg/dL (75-193) L 09/25/18 06:20 HDL Cholesterol 38 mg/dL (23-92) 09/25/18 06:20 TSH 5.29 uIU/ml (0.34-5.60) 09/25/18 06:20 Urine Source CLEAN C 09/24/18 23:45 Urine Color YELLOW 09/24/18 23:45 Urine Clarity SLIGHT HAZY (CLEAR) 09/24/18 23:45 Urine pH 5.5 (4.6 - 8.0) 09/24/18 23:45 Ur Specific [place] 1.015 (1.005-1.030) 09/24/18 23:45 Urine Protein 30 mg/dL (NEGATIVE) H 09/24/18 23:45 Urine Glucose (UA) >=1000 mg/dL (NEGATIVE) H 09/24/18 23:45 Urine Ketones NEGATIVE mg/dL (NEGATIVE) 09/24/18 23:45 Urine Blood LARGE (NEGATIVE) H 09/24/18 23:45 Urine Nitrate POSITIVE (NEGATIVE) H 09/24/18 23:45 Urine Bilirubin NEGATIVE (NEGATIVE) 09/24/18 23:45 Urine Urobilinogen 0.2 E.U./dL (0.2 - 1.0) 09/24/18 23:45 Ur Leukocyte Esterase TRACE (NEGATIVE) H 09/24/18 23:45 Urine RBC 2-5 /hpf (0-5) H 09/24/18 23:45 Urine WBC 6-10 /hpf (0-5) 09/24/18 23:45 Ur Epithelial Cells FEW /lpf (FEW) 09/24/18 23:45 Urine Bacteria 1+ /hpf (NONE SEEN) H 09/24/18 23:45 Random Vancomycin 12.9 ug/mL (5.0-40.0) 09/27/18 05:55 - Physical Exam Vitals and I&O: Vital Signs Temp 97.6 F 09/27/18 04:00 Pulse 118 09/27/18 09:17 Resp 19 09/27/18 04:00 BP 129/89 09/27/18 09:16 Pulse Ox 98 09/27/18 04:00 Intake & Output 09/26/18 09/27/18 09/27/18 18:59 06:59 18:59 Intake Total 600 50 Balance 600 50 Weight (lbs) 119.295 kg 119.295 kg Intake: Intake, IV Amount 100 50 Piperacillin Sodium/ 100 50 Tazobact 3.375 gm In Sodium Chloride 0.9% 50 ml @ 100 mls/hr IV Q8HR [facility] Rx#:[id number] Oral 500 Other: # Voids 4 4 Weight Source Bedscale Bedscale Active Medications: Current Medications Acetaminophen (Tylenol) 650 mg GT Q4HR PRN PRN Reason: Pain or Fever >101 Stop: 11/24/18 09:33 Albuterol Sulfate (Albuterol 2.5mg/3ml Neb Ud) 2.5 mg HHN Q6HRT PRN PRN Reason: Shortness of Breath Stop: 11/24/18 09:34 Amiodarone HCl (Cordarone) 200 mg PO BID [facility] Stop: 11/24/18 16:59 Last Admin: 09/27/18 09:17 Dose: 200 mg Ascorbic Acid (Vitamin C) 500 mg PO DAILY [facility] Stop: 11/25/18 08:59 Last Admin: 09/27/18 09:17 Dose: 500 mg [place] Oil/[place] Balsam/Trypsin (Venelex) 1 appl TP DAILY [facility] Stop: 11/25/18 16:59 Last Admin: 09/26/18 18:45 Dose: 1 appl Dextrose (D50w) 50 ml IVP PRN PRN PRN Reason: Blood Glucose less than 70 Stop: 11/24/18 03:46 Dextrose (Glutose 40%) 18.75 gm PO PRN PRN PRN Reason: Blood Glucose less than 70 Stop: 11/24/18 03:46 Diltiazem HCl (Cardizem) 20 mg IVP Q4HR PRN PRN Reason: A FIB Stop: 11/24/18 11:21 Last Admin: 09/25/18 11:52 Dose: 20 mg Furosemide (Lasix) 40 mg IVP DAILY [facility] Stop: 11/24/18 08:59 Last Admin: 09/27/18 09:16 Dose: 40 mg Glucagon (Glucagen) 1 mg IM PRN PRN PRN Reason: Blood Glucose less than 70 Stop: 11/24/18 03:46 Piperacillin Sod/Tazobactam (Sod 3.375 gm/ Sodium Chloride) 50 mls @ 100 mls/ hr IV Q8HR [facility] Stop: 11/24/18 20:59 Last Admin: 09/27/18 05:29 Dose: 100 mls/hr Insulin Human Lispro (Humalog Insulin Sliding Scale) 0 units SUBQ BIDAC [facility]; Protocol Stop: 11/24/18 07:29 Last Admin: 09/27/18 07:47 Dose: 2 units Lorazepam (Ativan) 1 mg IVP Q4HR PRN; Protocol PRN Reason: Anxiety Stop: 11/24/18 02:37 Miscellaneous (Vancomycin Iv Per Pharmacy) 1 ea MC PRN PRN PRN Reason: PROTOCOL Stop: 11/24/18 17:22 Mupirocin (Bactroban Oint) 1 appl NS BID [facility] Stop: 10/01/18 09:01 Last Admin: 09/27/18 09:17 Dose: 1 appl Rivaroxaban (Xarelto) 20 mg PO QDPC [facility] Stop: 11/25/18 08:59 Last Admin: 09/27/18 09:16 Dose: 20 mg General: No acute distress Neck: Supple, JVD, +2 carotid pulse wo bruit (flat) Cardiovascular: Systolic murmurs, Other (atrial fibrillation) Lungs: Clear to auscultation, Normal air movement Abdomen: Bowel sounds, Soft Neurological: Strength at 5/5 X4 ext, Normal tone, Cranial nerves 3-12 NL, Reflexes 2+ Psych/Mental Status: Other (aggressive behavior) Assessment/Plan - Assessment Assessment: Atrial fibrillation cellulitis both upper and lower extremity Diabetes mellitus type 2 COPD Coronary artery disease Sacral decubitus ulcer Asthma Diabetic C kidney stated 3 - Plan Plan: Continue IV antibiotics control the heart rate and anticoagulation of the patient Nutritional Asmnt/Malnutr-PDOC - Dietary Evaluation Malnutrition Findings (Please click <Entered> for more info): Nutritional Asmnt/Malnutrition Start: 09/26/18 15: 55 Text: Status: Complete Freq: Protocol: Document 09/26/18 15:55 [email or web address] (Rec: 09/26/18 16:16 LCCLAUDIA [id number]) Nutritional Asmnt/Malnutrition Patient General Information Nutritional Screening High Risk Consult Diagnosis CHF, cellulitis, UTI Pertinent Medical Hx/Surgical Hx HTN, DM, CAD, CHF, asthma/COPD , dementia Subjective Information Consult received for elevated glucose level. Pt seen lying in bed at time of visit, falling asleep during visit. Per nurse, pt is always hungry and asking for food. glucose 396 at admission noted. Current Diet Order/ [facility] chopped, double portion Pertinent Medications vit C, lasix, humalog, piperacillilin Pertinent Labs 09/26 BUN 56, Cr 2.3, glucose 214, POC 205-302 Nutritional Hx/Data Height 1.83 m Height (Calculated Centimeters) 182.9 Current Weight (lbs) 119.295 kg Weight (Calculated Kilograms) 119.3 Weight (Calculated Grams) 498235.8 [place] Body Weight 178 Body Mass Index (BMI) 35.6 Weight Status Obese GI Symptoms GI Symptoms None Last BM 12/24 x 2 Skin Integrity/Comment: rash to R/L hand, R/L lower extremities, pressure area to sacrum, skin tear to left foot . Mauricio 16 Current %PO Good (75-100%) Estimated Nutritional Goals BEE in Kcals: Adj wt of IBW Calories/Kcals/Kg 23-27 Kcals Calculated 8485-8322 Protein: Adj wt of IBW Protein g/k.7-0.8 Protein Calculated 63-72 Fluid: ml 2069-243ml (1ml/kcal) Nutritional Problem 1. Problem Problem altered nutrition related labs Etiology hyperglycemia, possible renal dysfunction Signs/Symptoms: gluocse 396, POC 205, BUN 56, Cr 2.3 Malnutrition Alert Is there a minimum of two criteria No selected? Query Text:Check all the applicable criteria. A minimum of two criteria are recommended for diagnosis of either severe or non-severe malnutrition. Malnutrition Related to Morbid Obesity Malnutrition related to morbid obesity No Intervention/Recommendation Comments 1. Recommend to add CCHO diet d/t hyperglycemia. RN Ivy notified. Consider providing diabetic education when pt available. 2. Monitor PO intake, wt, labs and skin integrity 3. F/U as high risk in 2-3 days Expected Outcomes/Goals Expected Outcomes/Goals 1. PO intake to meet at least 75% of nutritional needs. 2. Wt stability, skin to remain intact, labs to approach WNL.
[2018-09-27] MEDS: Venelex 60gm Tube TP SCH (12:27)
--- NOTE | 2018-09-27 12:39 | Diagnostic Imaging Report ---
Sacrum and coccyx 2 views Indication: pain Comparison: none Findings: The exam is limited due to positioning and technique. There may have been old trauma to the coccygeal region there is angulation this region. Mild degenerative changes of the left SI joint and left hip is noted. No obvious acute fracture identified Impression: Limited exam. There may have been old trauma to the coccygeal region with angulation seen in this region. Otherwise no evidence of an acute fracture. Lease correlate with clinical findings. Mild degenerative changes involving the left SI joint and left hip joint. Atherosclerosis. In the setting of trauma, if clinical symptoms persist and there is continued concern for an occult fracture, follow up exams in 5-7 days is suggested.
--- NOTE | 2018-09-27 21:24 | Internal Medicine Prog Note ---
Internal Medicine Subjective - Subjective Service Date: 09/27/18 Patient is:: awake, verbal, agitated, confused Patient Complaints of:: other (bilateral lower leg cellulitis, buttock decubiti noted.) Per staff patient has:: no adverse event, no episodes of fall Internal Medicine Objective - Results Result Diagrams: 09/27/18 05:55 09/27/18 05:55 Recent Labs: Laboratory Last Values WBC 8.5 Th/cmm (4.8-10.8) 09/27/18 05:55 RBC 4.19 Mil/cmm (4.30-5.70) L 09/27/18 05:55 Hgb 12.2 gm/dL (12-16) 09/27/18 05:55 Hct 37.1 % (41.0-60) L 09/27/18 05:55 MCV 88.3 fl (80-99) 09/27/18 05:55 MCH 29.0 pg (26.0-30.0) 09/27/18 05:55 MCHC Differential 32.8 pg (28.0-36.0) 09/27/18 05:55 RDW 22.0 % (11.5-20.0) H 09/27/18 05:55 Plt Count 190 Th/cmm (150-400) 09/27/18 05:55 MPV 9.3 fl 09/27/18 05:55 Neutrophils % 73.4 % (40.0-80.0) 09/27/18 05:55 Lymphocytes % 18.2 % (20.0-50.0) L 09/27/18 05:55 Monocytes % 6.1 % (2.0-10.0) 09/27/18 05:55 Eosinophils % 2.3 % (0.0-5.0) 09/27/18 05:55 Basophils % 0.0 % (0.0-2.0) 09/27/18 05:55 Specimen Source aterial 09/24/18 21:36 Sample Site LB 09/24/18 21:36 pH 7.32 (7.35-7.45) L 09/24/18 21:36 pCO2 37.2 mmHg (35.0-45.0) 09/24/18 21:36 pO2 27.8 mmHg (80.0-100.0) L* 09/24/18 21:36 HCO3 18.6 mEq/L (20.0-26.0) L 09/24/18 21:36 Base Excess -6.8 mEq/L (-3.0-3.0) L 09/24/18 21:36 O2 Saturation 47.0 % (92.0-100.0) L 09/24/18 21:36 Phuc Test n/a 09/24/18 21:36 Vent Rate n/a 09/24/18 21:36 Inspired O2 21 09/24/18 21:36 Tidal Volume n/a 09/24/18 21:36 PEEP n/a 09/24/18 21:36 Pressure (ins/psv/peep) n/a 09/24/18 21:36 Critical Value dVassel 09/24/18 21:36 Sodium 138 mEq/L (136-145) 09/27/18 05:55 Potassium 3.9 mEq/L (3.5-5.1) 09/27/18 05:55 Chloride 106 mEq/L (98-107) 09/27/18 05:55 Carbon Dioxide 19.6 mEq/L (21.0-31.0) L 09/27/18 05:55 Anion Gap 16.3 (7.0-16.0) H 09/27/18 05:55 BUN 51 mg/dL (7-25) H 09/27/18 05:55 Creatinine 2.2 mg/dL (0.7-1.3) H 09/27/18 05:55 Est GFR ( Amer) 40.2 ml/min (>90) 09/27/18 05:55 Est GFR (Non-Af Amer) 33.2 ml/min 09/27/18 05:55 BUN/Creatinine Ratio 23.2 09/27/18 05:55 Glucose 210 mg/dL (70-105) H 09/27/18 05:55 POC Glucose 331 MG/DL (70 - 105) H 09/27/18 17:35 Calcium 8.4 mg/dL (8.6-10.3) L 09/27/18 05:55 Total Bilirubin 1.3 mg/dL (0.3-1.0) H 09/25/18 06:20 AST 13 U/L (13-39) 09/25/18 06:20 ALT 58 U/L (7-52) H 09/25/18 06:20 Alkaline Phosphatase 150 U/L (34-104) H 09/25/18 06:20 Creatine Kinase 34 U/L (30-223) 09/25/18 06:20 Troponin I 0.05 ng/mL (0.01-0.05) 09/25/18 06:20 Total Protein 6.4 gm/dL (6.0-8.3) 09/25/18 06:20 Albumin 3.5 gm/dL (4.2-5.5) L 09/25/18 06:20 Globulin 2.9 gm/dL 09/25/18 06:20 Albumin/Globulin Ratio 1.2 (1.0-1.8) 09/25/18 06:20 Triglycerides 88 mg/dL (<150) 09/25/18 06:20 Cholesterol 99 mg/dL (<200) 09/25/18 06:20 LDL Cholesterol Direct 56 mg/dL (75-193) L 09/25/18 06:20 HDL Cholesterol 38 mg/dL (23-92) 09/25/18 06:20 TSH 5.29 uIU/ml (0.34-5.60) 09/25/18 06:20 Urine Source CLEAN C 09/24/18 23:45 Urine Color YELLOW 09/24/18 23:45 Urine Clarity SLIGHT HAZY (CLEAR) 09/24/18 23:45 Urine pH 5.5 (4.6 - 8.0) 09/24/18 23:45 Ur Specific [place] 1.015 (1.005-1.030) 09/24/18 23:45 Urine Protein 30 mg/dL (NEGATIVE) H 09/24/18 23:45 Urine Glucose (UA) >=1000 mg/dL (NEGATIVE) H 09/24/18 23:45 Urine Ketones NEGATIVE mg/dL (NEGATIVE) 09/24/18 23:45 Urine Blood LARGE (NEGATIVE) H 09/24/18 23:45 Urine Nitrate POSITIVE (NEGATIVE) H 09/24/18 23:45 Urine Bilirubin NEGATIVE (NEGATIVE) 09/24/18 23:45 Urine Urobilinogen 0.2 E.U./dL (0.2 - 1.0) 09/24/18 23:45 Ur Leukocyte Esterase TRACE (NEGATIVE) H 09/24/18 23:45 Urine RBC 2-5 /hpf (0-5) H 09/24/18 23:45 Urine WBC 6-10 /hpf (0-5) 09/24/18 23:45 Ur Epithelial Cells FEW /lpf (FEW) 09/24/18 23:45 Urine Bacteria 1+ /hpf (NONE SEEN) H 09/24/18 23:45 Random Vancomycin 12.9 ug/mL (5.0-40.0) 09/27/18 05:55 - Physical Exam Vitals and I&O: Vital Signs Temp 98.4 F 09/27/18 20:00 Pulse 112 09/27/18 20:00 Resp 20 09/27/18 20:00 BP 118/80 09/27/18 20:00 Pulse Ox 96 09/27/18 20:00 Intake & Output 09/27/18 09/27/18 09/28/18 06:59 18:59 06:59 Intake Total 100 325 240 Balance 100 325 240 Weight (lbs) 119.295 kg 119.295 kg 119.295 kg Intake: Intake, IV Amount 100 Piperacillin Sodium/ 100 Tazobact 3.375 gm In Sodium Chloride 0.9% 50 ml @ 100 mls/hr IV Q8HR [facility] Rx#:[id number] Oral 325 240 Other: # Voids 4 6 1 # Bowel Movements 1 Weight Source Bedscale Bedscale Bedscale Active Medications: Current Medications Acetaminophen (Tylenol) 650 mg GT Q4HR PRN PRN Reason: Pain or Fever >101 Stop: 11/24/18 09:33 Last Admin: 09/27/18 19:56 Dose: 650 mg Albuterol Sulfate (Albuterol 2.5mg/3ml Neb Ud) 2.5 mg HHN Q6HRT PRN PRN Reason: Shortness of Breath Stop: 11/24/18 09:34 Amiodarone HCl (Cordarone) 200 mg PO BID [facility] Stop: 11/24/18 16:59 Last Admin: 09/27/18 17:46 Dose: 200 mg Ascorbic Acid (Vitamin C) 500 mg PO DAILY [facility] Stop: 11/25/18 08:59 Last Admin: 09/27/18 09:17 Dose: Not Given [place] Oil/[place] Balsam/Trypsin (Venelex) 1 appl TP DAILY [facility] Stop: 11/25/18 16:59 Last Admin: 09/27/18 12:27 Dose: 1 appl Dextrose (D50w) 50 ml IVP PRN PRN PRN Reason: Blood Glucose less than 70 Stop: 11/24/18 03:46 Dextrose (Glutose 40%) 18.75 gm PO PRN PRN PRN Reason: Blood Glucose less than 70 Stop: 11/24/18 03:46 Diltiazem HCl (Cardizem) 20 mg IVP Q4HR PRN PRN Reason: A FIB Stop: 11/24/18 11:21 Last Admin: 09/25/18 11:52 Dose: 20 mg Furosemide (Lasix) 40 mg IVP DAILY [facility] Stop: 11/24/18 08:59 Last Admin: 09/27/18 09:16 Dose: 40 mg Glucagon (Glucagen) 1 mg IM PRN PRN PRN Reason: Blood Glucose less than 70 Stop: 11/24/18 03:46 Piperacillin Sod/Tazobactam (Sod 3.375 gm/ Sodium Chloride) 50 mls @ 100 mls/ hr IV Q8HR [facility] Stop: 11/24/18 20:59 Last Admin: 09/27/18 20:03 Dose: 100 mls/hr Insulin Human Lispro (Humalog Insulin Sliding Scale) 0 units SUBQ BIDAC [facility]; Protocol Stop: 11/24/18 07:29 Last Admin: 09/27/18 17:43 Dose: 8 units Lorazepam (Ativan) 1 mg IVP Q4HR PRN; Protocol PRN Reason: Anxiety Stop: 11/24/18 02:37 Miscellaneous (Vancomycin Iv Per Pharmacy) 1 ea MC PRN PRN PRN Reason: PROTOCOL Stop: 11/24/18 17:22 Mupirocin (Bactroban Oint) 1 appl NS BID [facility] Stop: 10/01/18 09:01 Last Admin: 09/27/18 17:49 Dose: Not Given Rivaroxaban (Xarelto) 20 mg PO QDPC [facility] Stop: 11/25/18 08:59 Last Admin: 09/27/18 12:28 Dose: Not Given General: weak, demented HEENT: NC/AT, PERRLA Neck: Supple, No JVD Lungs: other (mild sob) Cardiovascular: RRR, Normal S1 Abdomen: soft, non-tender Extremities: edema, erythema Neurological: no change, disorganized Internal Medicine Assmt/Plan - Assessment Assessment: Cellulitis of both legs. Cellulitis of both arms. Sacral Decubitus Ulcer Stage II. Aggressive Behavior. Renal insufficency, chronic vs acute. Mild UTI. Atrial Fibrillation. HTN. Diabetes. Coronary Artery Disease. Congestive Heart Failure. Asthma/Copd. Dementia. - Plan Plan: Continuation of care. Continue antibiotics and present meds as directed Monitor vitals Monitor diet Respiratory treatments prn Followup with ID and Psych. Local skin care and wound care prn Fal precaution Continue present care management Nutritional Asmnt/Malnutr-PDOC - Dietary Evaluation Malnutrition Findings (Please click <Entered> for more info): Nutritional Asmnt/Malnutrition Start: 09/26/18 15: 55 Text: Status: Complete Freq: Protocol: Document 09/26/18 15:55 LCHENG (Rec: 09/26/18 16:16 LCHENG [email or web address]) Nutritional Asmnt/Malnutrition Patient General Information Nutritional Screening High Risk Consult Diagnosis CHF, cellulitis, UTI Pertinent Medical Hx/Surgical Hx HTN, DM, CAD, CHF, asthma/COPD , dementia Subjective Information Consult received for elevated glucose level. Pt seen lying in bed at time of visit, falling asleep during visit. Per nurse, pt is always hungry and asking for food. glucose 396 at admission noted. Current Diet Order/ Nutrition Support [facility] soft chopped, double portion Pertinent Medications vit C, lasix, humalog, piperacillilin Pertinent Labs 09/26 BUN 56, Cr 2.3, glucose 214, POC 205-302 Nutritional Hx/Data Height 1.83 m Height (Calculated Centimeters) 182.9 Current Weight (lbs) 119.295 kg Weight (Calculated Kilograms) 119.3 Weight (Calculated Grams) 053124.8 [place] Body Weight 178 Body Mass Index (BMI) 35.6 Weight Status Obese GI Symptoms GI Symptoms None Last BM 12/24 x 2 Skin Integrity/Comment: rash to R/L hand, R/L lower extremities, pressure area to sacrum, skin tear to left foot . Mauricio 16 Current %PO Good (75-100%) Estimated Nutritional Goals BEE in Kcals: Adj wt of IBW Calories/Kcals/Kg 23-27 Kcals Calculated 4995-4560 Protein: Adj wt of IBW Protein g/k.7-0.8 Protein Calculated 63-72 Fluid: ml 2070-2430ml (1ml/kcal) Nutritional Problem 1. Problem Problem altered nutrition related labs Etiology hyperglycemia, possible renal dysfunction Signs/Symptoms: gluocse 396, POC 205, BUN 56, Cr 2.3 Malnutrition Alert Is there a minimum of two criteria No selected? Query Text:Check all the applicable criteria. A minimum of two criteria are recommended for diagnosis of either severe or non-severe malnutrition. Malnutrition Related to Morbid Obesity Malnutrition related to morbid obesity No Intervention/Recommendation Comments 1. Recommend to add CCHO diet d/t hyperglycemia. MISSY Haynes notified. Consider providing diabetic education when pt available. 2. Monitor PO intake, wt, labs and skin integrity 3. F/U as high risk in 2-3 days Expected Outcomes/Goals Expected Outcomes/Goals 1. PO intake to meet at least 75% of nutritional needs. 2. Wt stability, skin to remain intact, labs to approach WNL.
--- NOTE | 2018-09-27 21:32 | Consultation ---
DATE OF CONSULTATION: 09/27/2018 IDENTIFYING INFORMATION: The patient is a 53-year-old male. HISTORY OF PRESENT ILLNESS: I was asked to see this patient who was diabetic, congestive heart failure, atrial fibrillation, resident of [facility] where he was seen by Dr. Nixon. He has been aggressive, also was complaining of soreness in his back with acute kidney, but also has bilateral leg swelling and cellulitis, so he was admitted to the Med/Surg because of congestive heart failure, atrial fibrillation, diabetes uncontrolled, asthma, COPD exacerbation. He also has a history of dementia and aggressive behavior. When I talked to the patient, he was cooperative; however, he was unable to tell me the date. He believes this November or October, unable to me exact date. He was able to tell me his age. He was somewhat irritable when I talked to him, however, he denies that he was hearing voices or seeing things. Denies any intent to harm self or anybody. PAST PSYCHIATRIC HISTORY: The patient admitted history of depression. He denies any prior suicide attempt. He does report that he used meth. He has not used in about 6-8 months. MEDICAL HISTORY: As per Dr. Nixon, the patient was admitted with cellulitis of his legs, congestive heart failure, decubitus ulcer, diabetic, bilateral leg swelling, cellulitis, atrial fibrillation, asthma, COPD, sepsis and encephalopathy. ALLERGIES: He has no known drug allergies. MEDICATIONS: The patient has been on no psychotropic medication at this point. 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 No family psychotic disorder. No legal issues. History of using meth. MENTAL STATUS EXAMINATION: The patient is appropriately dressed, not well groomed. He was feeding himself. He was alert. He was able to tell me his age. The patient reports that his sleep and appetite varies, but it is okay. He denies any current intent to harm himself or anybody. Denies prior suicide attempt. Denies any auditory or visual hallucination or paranoia. He was unable to tell me the date. He knew he was in the hospital. He is not sure why. His short term memory is poor. He is not sure exactly why he is here. He reports first he is homeless and he said he is in some sort of care facility. His insight and judgment is limited. IMPRESSION: Major depression, moderate, dementia. RECOMMENDATIONS: I recommend the patient may need to go to [facility] that acting aggressive. Currently, he is denying intent to harm self or anybody. The patient will evaluate the need for medication at this point. He was calm, cooperative, feeding himself, not suicidal or homicidal, sleeping well, and eating well. Thank you very much for allowing me to participate in the care of this most interesting gentleman. JOB# [id number]
[2018-09-27 22:55] LABS: URINE SOURCE RANDOM
[2018-09-27 23:02] LABS: URINE BILIRUBIN NEGATIVE (NEGATIVE); URINE BLOOD LARGE (NEGATIVE); URINE GLUCOSE (UA) 250 mg/dL (NEGATIVE); URINE KETONE NEGATIVE (NEGATIVE); URINE LEUKOCYTE ESTERASE NEGATIVE (NEGATIVE); URINE MICROSCOPIC INDICATED? YES; URINE NITRATE NEGATIVE (NEGATIVE); URINE PH 5.5 (4.6 - 8.0); URINE PROTEIN TRACE mg/dL (NEGATIVE); URINE UROBILINOGEN 0.2 E.U./dL (0.2 - 1.0)
[2018-09-27 23:11] LABS: URINE CLARITY CLEAR (CLEAR); URINE COLOR YELLOW
[2018-09-27 23:12] LABS: URINE BACTERIA OCCASIONAL /hpf (NONE SEEN); URINE EPITHELIAL CELLS OCCASIONAL /lpf (FEW); URINE RBC NONE SEEN /hpf (0-5); URINE WBC 0-2 /hpf (0-5)
[2018-09-28 06:16] LABS: HEMOGLOBIN 9.7 gm/dL (12-16); MEAN CELL VOLUME 88.8 fl (80-99); MEAN CORPUSCULAR HEMOGLOBIN 26.2 pg (26.0-30.0); MEAN CORPUSCULAR HGB CONC 29.5 pg (28.0-36.0); PLATELET COUNT 173 Th/cmm (150-400); RED BLOOD COUNT 3.71 Mil/cmm (4.30-5.70); RED CELL DISTRIBUTION WIDTH 21.9 % (11.5-20.0); WHITE BLOOD COUNT 5.7 Th/cmm (4.8-10.8)
[2018-09-28 06:40] LABS: ANION GAP 15.8 (7.0-16.0); CALCIUM SERUM 8.7 mg/dL (8.6-10.3); CARBON DIOXIDE 18.9 mEq/L (21.0-31.0); CREATININE - SERUM 2.2 mg/dL (0.7-1.3); GFR AFRICAN-AMERICAN 40.2 ml/min (>90); GFR NON AFRICAN-AMERICAN 33.2 ml/min; POTASSIUM SERUM 3.7 mEq/L (3.5-5.1)
[2018-09-28] MEDS: INSULIN LISPRO SLIDING SCALE 100 UNITS/ML UNIT SUBQ SCH ×3 (06:43→18:16)
[2018-09-28 06:56] LABS: BAND NEUTROPHILE 1 % (0-10); EOSINOPHIL 6 % (0-5); LYMPHOCYTE 11 % (20-50); MONOCYTE 6 % (2-10); NEUTROPHILS 76 % (40-80)
[2018-09-28 06:57] LABS: ANISOCYTOSIS 2+
[2018-09-28] MEDS: Venelex 60gm Tube TP SCH (08:44)
--- NOTE | 2018-09-28 14:35 | General Progress Note ---
Subjective - Review of Systems Service Date: 09/28/18 Subjective: Patient has complained of mild discomfort both upper lower extremity patient still has less aggressive patient to have psychiatrist evaluation Objective - Results Result Diagrams: 09/28/18 06:00 09/28/18 06:00 Recent Labs: Laboratory Last Values WBC 5.7 Th/cmm (4.8-10.8) 09/28/18 06:00 RBC 3.71 Mil/cmm (4.30-5.70) L 09/28/18 06:00 Hgb 9.7 gm/dL (12-16) L 09/28/18 06:00 Hct 33.0 % (41.0-60) L 09/28/18 06:00 MCV 88.8 fl (80-99) 09/28/18 06:00 MCH 26.2 pg (26.0-30.0) 09/28/18 06:00 MCHC Differential 29.5 pg (28.0-36.0) 09/28/18 06:00 RDW 21.9 % (11.5-20.0) H 09/28/18 06:00 Plt Count 173 Th/cmm (150-400) 09/28/18 06:00 MPV 9.0 fl 09/28/18 06:00 Add Manual Diff YES 09/28/18 06:00 Neutrophils % 73.4 % (40.0-80.0) 09/27/18 05:55 Band Neutrophils % 1 % (0-10) 09/28/18 06:00 Lymphocytes % 18.2 % (20.0-50.0) L 09/27/18 05:55 Monocytes % 6.1 % (2.0-10.0) 09/27/18 05:55 Eosinophils % 2.3 % (0.0-5.0) 09/27/18 05:55 Basophils % 0.0 % (0.0-2.0) 09/27/18 05:55 Neutrophils (Manual) 76 % (40-80) 09/28/18 06:00 Lymphocytes 11 % (20-50) L 09/28/18 06:00 Monocytes 6 % (2-10) 09/28/18 06:00 Eosinophils 6 % (0-5) H 09/28/18 06:00 Anisocytosis 2+ 09/28/18 06:00 Specimen Source aterial 09/24/18 21:36 Sample Site LB 09/24/18 21:36 pH 7.32 (7.35-7.45) L 09/24/18 21:36 pCO2 37.2 mmHg (35.0-45.0) 09/24/18 21:36 pO2 27.8 mmHg (80.0-100.0) L* 09/24/18 21:36 HCO3 18.6 mEq/L (20.0-26.0) L 09/24/18 21:36 Base Excess -6.8 mEq/L (-3.0-3.0) L 09/24/18 21:36 O2 Saturation 47.0 % (92.0-100.0) L 09/24/18 21:36 Phuc Test n/a 09/24/18 21:36 Vent Rate n/a 09/24/18 21:36 Inspired O2 21 09/24/18 21:36 Tidal Volume n/a 09/24/18 21:36 PEEP n/a 09/24/18 21:36 Pressure (ins/psv/peep) n/a 09/24/18 21:36 Critical Value dVassel 09/24/18 21:36 Sodium 137 mEq/L (136-145) 09/28/18 06:00 Potassium 3.7 mEq/L (3.5-5.1) 09/28/18 06:00 Chloride 106 mEq/L (98-107) 09/28/18 06:00 Carbon Dioxide 18.9 mEq/L (21.0-31.0) L 09/28/18 06:00 Anion Gap 15.8 (7.0-16.0) 09/28/18 06:00 BUN 51 mg/dL (7-25) H 09/28/18 06:00 Creatinine 2.2 mg/dL (0.7-1.3) H 09/28/18 06:00 Est GFR ( Amer) 40.2 ml/min (>90) 09/28/18 06:00 Est GFR (Non-Af Amer) 33.2 ml/min 09/28/18 06:00 BUN/Creatinine Ratio 23.2 09/28/18 06:00 Glucose 257 mg/dL (70-105) H 09/28/18 06:00 POC Glucose 195 MG/DL (70 - 105) H 09/28/18 12:03 Calcium 8.7 mg/dL (8.6-10.3) 09/28/18 06:00 Total Bilirubin 1.3 mg/dL (0.3-1.0) H 09/25/18 06:20 AST 13 U/L (13-39) 09/25/18 06:20 ALT 58 U/L (7-52) H 09/25/18 06:20 Alkaline Phosphatase 150 U/L (34-104) H 09/25/18 06:20 Creatine Kinase 34 U/L (30-223) 09/25/18 06:20 Troponin I 0.05 ng/mL (0.01-0.05) 09/25/18 06:20 Total Protein 6.4 gm/dL (6.0-8.3) 09/25/18 06:20 Albumin 3.5 gm/dL (4.2-5.5) L 09/25/18 06:20 Globulin 2.9 gm/dL 09/25/18 06:20 Albumin/Globulin Ratio 1.2 (1.0-1.8) 09/25/18 06:20 Triglycerides 88 mg/dL (<150) 09/25/18 06:20 Cholesterol 99 mg/dL (<200) 09/25/18 06:20 LDL Cholesterol Direct 56 mg/dL (75-193) L 09/25/18 06:20 HDL Cholesterol 38 mg/dL (23-92) 09/25/18 06:20 TSH 5.29 uIU/ml (0.34-5.60) 09/25/18 06:20 Urine Source RANDOM 09/27/18 22:45 Urine Color YELLOW 09/27/18 22:45 Urine Clarity CLEAR (CLEAR) 09/27/18 22:45 Urine pH 5.5 (4.6 - 8.0) 09/27/18 22:45 Ur Specific [place] 1.010 (1.005-1.030) 09/27/18 22:45 Urine Protein TRACE mg/dL (NEGATIVE) 09/27/18 22:45 Urine Glucose (UA) 250 mg/dL (NEGATIVE) H 09/27/18 22:45 Urine Ketones NEGATIVE mg/dL (NEGATIVE) 09/27/18 22:45 Urine Blood LARGE (NEGATIVE) H 09/27/18 22:45 Urine Nitrate NEGATIVE (NEGATIVE) 09/27/18 22:45 Urine Bilirubin NEGATIVE (NEGATIVE) 09/27/18 22:45 Urine Urobilinogen 0.2 E.U./dL (0.2 - 1.0) 09/27/18 22:45 Ur Leukocyte Esterase NEGATIVE (NEGATIVE) 09/27/18 22:45 Urine RBC NONE SEEN /hpf (0-5) 09/27/18 22:45 Urine WBC 0-2 /hpf (0-5) 09/27/18 22:45 Ur Epithelial Cells OCCASIONAL /lpf (FEW) 09/27/18 22:45 Urine Bacteria OCCASIONAL /hpf (NONE SEEN) 09/27/18 22:45 Random Vancomycin 17.3 ug/mL (5.0-40.0) 09/28/18 06:00 - Physical Exam Vitals and I&O: Vital Signs Temp 97.3 F 09/28/18 12:00 Pulse 117 09/28/18 12:00 Resp 19 09/28/18 12:00 BP 95/51 09/28/18 12:00 Pulse Ox 94 09/28/18 12:00 Intake & Output 09/27/18 09/28/18 09/28/18 18:59 06:59 18:59 Intake Total 325 820 Output Total 300 Balance 325 520 Weight (lbs) 119.295 kg 119.295 kg Intake: Intake, IV Amount 100 Piperacillin Sodium/ 100 Tazobact 3.375 gm In Sodium Chloride 0.9% 50 ml @ 100 mls/hr IV Q8HR [facility] Rx#:[id number] Oral 325 720 Output: Urine 300 Other: # Voids 6 4 # Bowel Movements 1 2 Weight Source Bedscale Bedscale Active Medications: Current Medications Acetaminophen (Tylenol) 650 mg GT Q4HR PRN PRN Reason: Pain or Fever >101 Stop: 11/24/18 09:33 Last Admin: 09/28/18 02:06 Dose: 650 mg Albuterol Sulfate (Albuterol 2.5mg/3ml Neb Ud) 2.5 mg HHN Q6HRT PRN PRN Reason: Shortness of Breath Stop: 11/24/18 09:34 Amiodarone HCl (Cordarone) 200 mg PO BID [facility] Stop: 11/24/18 16:59 Last Admin: 09/28/18 08:45 Dose: Not Given Ascorbic Acid (Vitamin C) 500 mg PO DAILY [facility] Stop: 11/25/18 08:59 Last Admin: 09/28/18 08:44 Dose: 500 mg [place] Oil/[place] Balsam/Trypsin (Venelex) 1 appl TP DAILY [facility] Stop: 11/25/18 16:59 Last Admin: 09/28/18 08:44 Dose: 1 appl Dextrose (D50w) 50 ml IVP PRN PRN PRN Reason: Blood Glucose less than 70 Stop: 11/24/18 03:46 Dextrose (Glutose 40%) 18.75 gm PO PRN PRN PRN Reason: Blood Glucose less than 70 Stop: 11/24/18 03:46 Diltiazem HCl (Cardizem) 20 mg IVP Q4HR PRN PRN Reason: A FIB Stop: 11/24/18 11:21 Last Admin: 09/25/18 11:52 Dose: 20 mg Furosemide (Lasix) 40 mg IVP DAILY [facility] Stop: 11/24/18 08:59 Last Admin: 09/28/18 08:44 Dose: 40 mg Glucagon (Glucagen) 1 mg IM PRN PRN PRN Reason: Blood Glucose less than 70 Stop: 11/24/18 03:46 Piperacillin Sod/Tazobactam (Sod 3.375 gm/ Sodium Chloride) 50 mls @ 100 mls/ hr IV Q8HR [facility] Stop: 11/24/18 20:59 Last Admin: 09/28/18 13:15 Dose: 100 mls/hr Vancomycin HCl 1.25 gm/ Sodium (Chloride) 250 mls @ 165 mls/hr IV Q24H [facility] Stop: 11/27/18 08:59 Last Admin: 09/28/18 09:26 Dose: 165 mls/hr Insulin Human Lispro (Humalog Insulin Sliding Scale) 0 units SUBQ BIDAC [facility]; Protocol Stop: 11/24/18 07:29 Last Admin: 09/28/18 08:42 Dose: 4 units Lorazepam (Ativan) 1 mg IVP Q4HR PRN; Protocol PRN Reason: Anxiety Stop: 11/24/18 02:37 Miscellaneous (Vancomycin Iv Per Pharmacy) 1 ea [facility] PRN PRN PRN Reason: PROTOCOL Stop: 11/24/18 17:22 Mupirocin (Bactroban Oint) 1 appl NS BID [facility] Stop: 10/01/18 09:01 Last Admin: 09/28/18 08:44 Dose: 1 appl Rivaroxaban (Xarelto) 20 mg PO QDPC [facility] Stop: 11/25/18 08:59 Last Admin: 09/28/18 08:44 Dose: 20 mg General: No acute distress Neck: Supple, JVD, +2 carotid pulse wo bruit (flat) Cardiovascular: Systolic murmurs, Other (atrial fibrillation) Lungs: Clear to auscultation, Normal air movement Abdomen: Bowel sounds, Soft Neurological: Strength at 5/5 X4 ext, Normal tone, Cranial nerves 3-12 NL, Reflexes 2+ Psych/Mental Status: Other (aggressive behavior) Assessment/Plan - Assessment Assessment: Atrial fibrillation cellulitis both upper and lower extremity Diabetes mellitus type 2 COPD Coronary artery disease Sacral decubitus ulcer Asthma Diabetic Ckd 3 - Plan Plan: Continue IV antibiotics control the heart rate and anticoagulation of the patient Nutritional Asmnt/Malnutr-PDOC - Dietary Evaluation Malnutrition Findings (Please click <Entered> for more info): Nutritional Asmnt/Malnutrition Start: 09/26/18 15: 55 Text: Status: Complete Freq: Protocol: Document 09/26/18 15:55 LCHENG (Rec: 09/26/18 16:16 [email or web address]) Nutritional Asmnt/Malnutrition Patient General Information Nutritional Screening High Risk Consult Diagnosis CHF, cellulitis, UTI Pertinent Medical Hx/Surgical Hx HTN, DM, CAD, CHF, asthma/COPD , dementia Subjective Information Consult received for elevated glucose level. Pt seen lying in bed at time of visit, falling asleep during visit. Per nurse, pt is always hungry and asking for food. glucose 396 at admission noted. Current Diet Order/ Nutrition Support [facility] soft chopped, double portion Pertinent Medications vit C, lasix, humalog, piperacillilin Pertinent Labs 09/26 BUN 56, Cr 2.3, glucose 214, POC 205-302 Nutritional Hx/Data Height 1.83 m Height (Calculated Centimeters) 182.9 Current Weight (lbs) 119.295 kg Weight (Calculated Kilograms) 119.3 Weight (Calculated Grams) 030300.8 [place] Body Weight 178 Body Mass Index (BMI) 35.6 Weight Status Obese GI Symptoms GI Symptoms None Last BM 12/24 x 2 Skin Integrity/Comment: rash to R/L hand, R/L lower extremities, pressure area to sacrum, skin tear to left foot . Mauricio 16 Current %PO Good (75-100%) Estimated Nutritional Goals BEE in Kcals: Adj wt of IBW Calories/Kcals/Kg 23-27 Kcals Calculated 8425-5939 Protein: Adj wt of IBW Protein g/k.7-0.8 Protein Calculated 63-72 Fluid: ml 2069-243ml (1ml/kcal) Nutritional Problem 1. Problem Problem altered nutrition related labs Etiology hyperglycemia, possible renal dysfunction Signs/Symptoms: gluocse 396, POC 205, BUN 56, Cr 2.3 Malnutrition Alert Is there a minimum of two criteria No selected? Query Text:Check all the applicable criteria. A minimum of two criteria are recommended for diagnosis of either severe or non-severe malnutrition. Malnutrition Related to Morbid Obesity Malnutrition related to morbid obesity No Intervention/Recommendation Comments 1. Recommend to add CCHO diet d/t hyperglycemia. MISSY Haynes notified. Consider providing diabetic education when pt available. 2. Monitor PO intake, wt, labs and skin integrity 3. F/U as high risk in 2-3 days Expected Outcomes/Goals Expected Outcomes/Goals 1. PO intake to meet at least 75% of nutritional needs. 2. Wt stability, skin to remain intact, labs to approach WNL.
--- NOTE | 2018-09-28 17:55 | Internal Medicine Prog Note ---
Internal Medicine Subjective - Subjective Service Date: 09/28/18 Patient seen and examined:: chart reviewed Patient is:: awake, verbal, agitated, confused Patient Complaints of:: other (bilateral lower leg cellulitis, buttock decubiti noted.) Per staff patient has:: no adverse event, no episodes of fall Internal Medicine Objective - Results Result Diagrams: 09/28/18 06:00 09/28/18 06:00 Recent Labs: Laboratory Last Values WBC 5.7 Th/cmm (4.8-10.8) 09/28/18 06:00 RBC 3.71 Mil/cmm (4.30-5.70) L 09/28/18 06:00 Hgb 9.7 gm/dL (12-16) L 09/28/18 06:00 Hct 33.0 % (41.0-60) L 09/28/18 06:00 MCV 88.8 fl (80-99) 09/28/18 06:00 MCH 26.2 pg (26.0-30.0) 09/28/18 06:00 MCHC Differential 29.5 pg (28.0-36.0) 09/28/18 06:00 RDW 21.9 % (11.5-20.0) H 09/28/18 06:00 Plt Count 173 Th/cmm (150-400) 09/28/18 06:00 MPV 9.0 fl 09/28/18 06:00 Add Manual Diff YES 09/28/18 06:00 Neutrophils % 73.4 % (40.0-80.0) 09/27/18 05:55 Band Neutrophils % 1 % (0-10) 09/28/18 06:00 Lymphocytes % 18.2 % (20.0-50.0) L 09/27/18 05:55 Monocytes % 6.1 % (2.0-10.0) 09/27/18 05:55 Eosinophils % 2.3 % (0.0-5.0) 09/27/18 05:55 Basophils % 0.0 % (0.0-2.0) 09/27/18 05:55 Neutrophils (Manual) 76 % (40-80) 09/28/18 06:00 Lymphocytes 11 % (20-50) L 09/28/18 06:00 Monocytes 6 % (2-10) 09/28/18 06:00 Eosinophils 6 % (0-5) H 09/28/18 06:00 Anisocytosis 2+ 09/28/18 06:00 Specimen Source aterial 09/24/18 21:36 Sample Site LB 09/24/18 21:36 pH 7.32 (7.35-7.45) L 09/24/18 21:36 pCO2 37.2 mmHg (35.0-45.0) 09/24/18 21:36 pO2 27.8 mmHg (80.0-100.0) L* 09/24/18 21:36 HCO3 18.6 mEq/L (20.0-26.0) L 09/24/18 21:36 Base Excess -6.8 mEq/L (-3.0-3.0) L 09/24/18 21:36 O2 Saturation 47.0 % (92.0-100.0) L 09/24/18 21:36 Phuc Test n/a 09/24/18 21:36 Vent Rate n/a 09/24/18 21:36 Inspired O2 21 09/24/18 21:36 Tidal Volume n/a 09/24/18 21:36 PEEP n/a 09/24/18 21:36 Pressure (ins/psv/peep) n/a 09/24/18 21:36 Critical Value dVassel 09/24/18 21:36 Sodium 137 mEq/L (136-145) 09/28/18 06:00 Potassium 3.7 mEq/L (3.5-5.1) 09/28/18 06:00 Chloride 106 mEq/L (98-107) 09/28/18 06:00 Carbon Dioxide 18.9 mEq/L (21.0-31.0) L 09/28/18 06:00 Anion Gap 15.8 (7.0-16.0) 09/28/18 06:00 BUN 51 mg/dL (7-25) H 09/28/18 06:00 Creatinine 2.2 mg/dL (0.7-1.3) H 09/28/18 06:00 Est GFR ( Amer) 40.2 ml/min (>90) 09/28/18 06:00 Est GFR (Non-Af Amer) 33.2 ml/min 09/28/18 06:00 BUN/Creatinine Ratio 23.2 09/28/18 06:00 Glucose 257 mg/dL (70-105) H 09/28/18 06:00 POC Glucose 217 MG/DL (70 - 105) H 09/28/18 16:45 Calcium 8.7 mg/dL (8.6-10.3) 09/28/18 06:00 Total Bilirubin 1.3 mg/dL (0.3-1.0) H 09/25/18 06:20 AST 13 U/L (13-39) 09/25/18 06:20 ALT 58 U/L (7-52) H 09/25/18 06:20 Alkaline Phosphatase 150 U/L (34-104) H 09/25/18 06:20 Creatine Kinase 34 U/L (30-223) 09/25/18 06:20 Troponin I 0.05 ng/mL (0.01-0.05) 09/25/18 06:20 Total Protein 6.4 gm/dL (6.0-8.3) 09/25/18 06:20 Albumin 3.5 gm/dL (4.2-5.5) L 09/25/18 06:20 Globulin 2.9 gm/dL 09/25/18 06:20 Albumin/Globulin Ratio 1.2 (1.0-1.8) 09/25/18 06:20 Triglycerides 88 mg/dL (<150) 09/25/18 06:20 Cholesterol 99 mg/dL (<200) 09/25/18 06:20 LDL Cholesterol Direct 56 mg/dL (75-193) L 09/25/18 06:20 HDL Cholesterol 38 mg/dL (23-92) 09/25/18 06:20 TSH 5.29 uIU/ml (0.34-5.60) 09/25/18 06:20 Urine Source RANDOM 09/27/18 22:45 Urine Color YELLOW 09/27/18 22:45 Urine Clarity CLEAR (CLEAR) 09/27/18 22:45 Urine pH 5.5 (4.6 - 8.0) 09/27/18 22:45 Ur Specific [place] 1.010 (1.005-1.030) 09/27/18 22:45 Urine Protein TRACE mg/dL (NEGATIVE) 09/27/18 22:45 Urine Glucose (UA) 250 mg/dL (NEGATIVE) H 09/27/18 22:45 Urine Ketones NEGATIVE mg/dL (NEGATIVE) 09/27/18 22:45 Urine Blood LARGE (NEGATIVE) H 09/27/18 22:45 Urine Nitrate NEGATIVE (NEGATIVE) 09/27/18 22:45 Urine Bilirubin NEGATIVE (NEGATIVE) 09/27/18 22:45 Urine Urobilinogen 0.2 E.U./dL (0.2 - 1.0) 09/27/18 22:45 Ur Leukocyte Esterase NEGATIVE (NEGATIVE) 09/27/18 22:45 Urine RBC NONE SEEN /hpf (0-5) 09/27/18 22:45 Urine WBC 0-2 /hpf (0-5) 09/27/18 22:45 Ur Epithelial Cells OCCASIONAL /lpf (FEW) 09/27/18 22:45 Urine Bacteria OCCASIONAL /hpf (NONE SEEN) 09/27/18 22:45 Random Vancomycin 17.3 ug/mL (5.0-40.0) 09/28/18 06:00 - Physical Exam Vitals and I&O: Vital Signs Temp 97.4 F 09/28/18 16:00 Pulse 115 09/28/18 16:50 Resp 18 09/28/18 16:00 BP 116/89 09/28/18 16:00 Pulse Ox 97 09/28/18 16:00 Intake & Output 09/27/18 09/28/18 09/28/18 18:59 06:59 18:59 Intake Total 325 820 Output Total 300 Balance 325 520 Weight (lbs) 119.295 kg 119.295 kg Intake: Intake, IV Amount 100 Piperacillin Sodium/ 100 Tazobact 3.375 gm In Sodium Chloride 0.9% 50 ml @ 100 mls/hr IV Q8HR [facility] Rx#:[id number] Oral 325 720 Output: Urine 300 Other: # Voids 6 4 # Bowel Movements 1 2 Stool Characteristics Soft Formed Weight Source Bedscale Bedscale Active Medications: Current Medications Acetaminophen (Tylenol) 650 mg GT Q4HR PRN PRN Reason: Pain or Fever >101 Stop: 11/24/18 09:33 Last Admin: 09/28/18 02:06 Dose: 650 mg Albuterol Sulfate (Albuterol 2.5mg/3ml Neb Ud) 2.5 mg HHN Q6HRT PRN PRN Reason: Shortness of Breath Stop: 04/25/19 09:34 Amiodarone HCl (Cordarone) 200 mg PO BID [facility] Stop: 11/24/18 16:59 Last Admin: 09/28/18 16:50 Dose: 200 mg Ascorbic Acid (Vitamin C) 500 mg PO DAILY [facility] Stop: 11/25/18 08:59 Last Admin: 09/28/18 08:44 Dose: 500 mg [place] Oil/[place] Balsam/Trypsin (Venelex) 1 appl TP DAILY [facility] Stop: 11/25/18 16:59 Last Admin: 09/28/18 08:44 Dose: 1 appl Dextrose (D50w) 50 ml IVP PRN PRN PRN Reason: Blood Glucose less than 70 Stop: 11/24/18 03:46 Dextrose (Glutose 40%) 18.75 gm PO PRN PRN PRN Reason: Blood Glucose less than 70 Stop: 11/24/18 03:46 Diltiazem HCl (Cardizem) 20 mg IVP Q4HR PRN PRN Reason: A FIB Stop: 11/24/18 11:21 Last Admin: 09/25/18 11:52 Dose: 20 mg Furosemide (Lasix) 40 mg IVP DAILY [facility] Stop: 11/24/18 08:59 Last Admin: 09/28/18 08:44 Dose: 40 mg Glucagon (Glucagen) 1 mg IM PRN PRN PRN Reason: Blood Glucose less than 70 Stop: 11/24/18 03:46 Piperacillin Sod/Tazobactam (Sod 3.375 gm/ Sodium Chloride) 50 mls @ 100 mls/ hr IV Q8HR [facility] Stop: 11/24/18 20:59 Last Admin: 09/28/18 13:15 Dose: 100 mls/hr Vancomycin HCl 1.25 gm/ Sodium (Chloride) 250 mls @ 165 mls/hr IV Q24H [facility] Stop: 11/27/18 08:59 Last Admin: 09/28/18 09:26 Dose: 165 mls/hr Insulin Human Lispro (Humalog Insulin Sliding Scale) 0 units SUBQ BIDAC [facility]; Protocol Stop: 11/24/18 07:29 Last Admin: 09/28/18 08:42 Dose: 4 units Lorazepam (Ativan) 1 mg IVP Q4HR PRN; Protocol PRN Reason: Anxiety Stop: 11/24/18 02:37 Miscellaneous (Vancomycin Iv Per Pharmacy) 1 ea MC PRN PRN PRN Reason: PROTOCOL Stop: 11/24/18 17:22 Mupirocin (Bactroban Oint) 1 appl NS BID [facility] Stop: 10/01/18 09:01 Last Admin: 09/28/18 16:51 Dose: 1 appl Rivaroxaban (Xarelto) 20 mg PO QDPC [facility] Stop: 11/25/18 08:59 Last Admin: 09/28/18 08:44 Dose: 20 mg General: weak, demented HEENT: NC/AT, PERRLA Neck: Supple, No JVD Lungs: other (mild sob) Cardiovascular: RRR, Normal S1 Abdomen: soft, non-tender Extremities: edema, erythema, other (cellulitis both upper and lower extremity.) Neurological: no change, disorganized Internal Medicine Assmt/Plan - Assessment Assessment: Cellulitis of both legs. Cellulitis of both arms. Sacral Decubitus Ulcer Stage II. Aggressive Behavior. Renal insufficency, chronic vs acute. Mild UTI. Atrial Fibrillation. Diabetic CKD 3. HTN. Diabetes. Coronary Artery Disease. Congestive Heart Failure. Asthma/Copd. Dementia. - Plan Plan: Continuation of care. Continue antibiotics and present meds as directed Monitor vitals Monitor diet Respiratory treatments prn Followup with ID and Psych. Local skin care and wound care prn Fall precaution Continue present treatment plan. Nutritional Asmnt/Malnutr-PDOC - Dietary Evaluation Malnutrition Findings (Please click <Entered> for more info): Nutritional Asmnt/Malnutrition Start: 09/26/18 15: 55 Text: Status: Complete Freq: Protocol: Document 09/26/18 15:55 LCHENG (Rec: 09/26/18 16:16 LCHENG [email or web address]) Nutritional Asmnt/Malnutrition Patient General Information Nutritional Screening High Risk Consult Diagnosis CHF, cellulitis, UTI Pertinent Medical Hx/Surgical Hx HTN, DM, CAD, CHF, asthma/COPD , dementia Subjective Information Consult received for elevated glucose level. Pt seen lying in bed at time of visit, falling asleep during visit. Per nurse, pt is always hungry and asking for food. glucose 396 at admission noted. Current Diet Order/ Nutrition Support [facility] soft chopped, double portion Pertinent Medications vit C, lasix, humalog, piperacillilin Pertinent Labs 09/26 BUN 56, Cr 2.3, glucose 214, POC 205-302 Nutritional Hx/Data Height 1.83 m Height (Calculated Centimeters) 182.9 Current Weight (lbs) 119.295 kg Weight (Calculated Kilograms) 119.3 Weight (Calculated Grams) 432041.8 [place] Body Weight 178 Body Mass Index (BMI) 35.6 Weight Status Obese GI Symptoms GI Symptoms None Last BM 12/24 x 2 Skin Integrity/Comment: rash to R/L hand, R/L lower extremities, pressure area to sacrum, skin tear to left foot . Mauricio 16 Current %PO Good (75-100%) Estimated Nutritional Goals BEE in Kcals: Adj wt of IBW Calories/Kcals/Kg 23-27 Kcals Calculated 0559-5372 Protein: Adj wt of IBW Protein g/k.7-0.8 Protein Calculated 63-72 Fluid: ml 0-2430ml (1ml/kcal) Nutritional Problem 1. Problem Problem altered nutrition related labs Etiology hyperglycemia, possible renal dysfunction Signs/Symptoms: gluocse 396, POC 205, BUN 56, Cr 2.3 Malnutrition Alert Is there a minimum of two criteria No selected? Query Text:Check all the applicable criteria. A minimum of two criteria are recommended for diagnosis of either severe or non-severe malnutrition. Malnutrition Related to Morbid Obesity Malnutrition related to morbid obesity No Intervention/Recommendation Comments 1. Recommend to add CCHO diet d/t hyperglycemia. MISSY Haynes notified. Consider providing diabetic education when pt available. 2. Monitor PO intake, wt, labs and skin integrity 3. F/U as high risk in 2-3 days Expected Outcomes/Goals Expected Outcomes/Goals 1. PO intake to meet at least 75% of nutritional needs. 2. Wt stability, skin to remain intact, labs to approach WNL.
--- NOTE | 2018-09-28 23:02 | Progress Notes ---
DATE: 09/28/2018 Case was discussed with staff of the patient, reviewed records. The patient continues to be confused, demented. Continues to have poor insight. Continues to be unable to make safe plan for self-care, unpredictable, impulsive, needing redirection. He is on Ativan to be given as needed. The patient needs to follow up with the psychiatrist upon discharge. Thank you very much for allowing me to participate in the care of this most interesting gentleman. JOB# [id number]
--- NOTE | 2018-09-28 23:59 | Infectious Disease Prog Note ---
Infectious Disease Subjective - Review of Systems Service Date: 09/28/18 Subjective: There is no new change, no fever. Infectious Disease Objective - Results Result Diagrams: 09/28/18 06:00 09/28/18 06:00 Recent Labs: Laboratory Last Values WBC 5.7 Th/cmm (4.8-10.8) 09/28/18 06:00 RBC 3.71 Mil/cmm (4.30-5.70) L 09/28/18 06:00 Hgb 9.7 gm/dL (12-16) L 09/28/18 06:00 Hct 33.0 % (41.0-60) L 09/28/18 06:00 MCV 88.8 fl (80-99) 09/28/18 06:00 MCH 26.2 pg (26.0-30.0) 09/28/18 06:00 MCHC Differential 29.5 pg (28.0-36.0) 09/28/18 06:00 RDW 21.9 % (11.5-20.0) H 09/28/18 06:00 Plt Count 173 Th/cmm (150-400) 09/28/18 06:00 MPV 9.0 fl 09/28/18 06:00 Add Manual Diff YES 09/28/18 06:00 Neutrophils % 73.4 % (40.0-80.0) 09/27/18 05:55 Band Neutrophils % 1 % (0-10) 09/28/18 06:00 Lymphocytes % 18.2 % (20.0-50.0) L 09/27/18 05:55 Monocytes % 6.1 % (2.0-10.0) 09/27/18 05:55 Eosinophils % 2.3 % (0.0-5.0) 09/27/18 05:55 Basophils % 0.0 % (0.0-2.0) 09/27/18 05:55 Neutrophils (Manual) 76 % (40-80) 09/28/18 06:00 Lymphocytes 11 % (20-50) L 09/28/18 06:00 Monocytes 6 % (2-10) 09/28/18 06:00 Eosinophils 6 % (0-5) H 09/28/18 06:00 Anisocytosis 2+ 09/28/18 06:00 Specimen Source aterial 09/24/18 21:36 Sample Site LB 09/24/18 21:36 pH 7.32 (7.35-7.45) L 09/24/18 21:36 pCO2 37.2 mmHg (35.0-45.0) 09/24/18 21:36 pO2 27.8 mmHg (80.0-100.0) L* 09/24/18 21:36 HCO3 18.6 mEq/L (20.0-26.0) L 09/24/18 21:36 Base Excess -6.8 mEq/L (-3.0-3.0) L 09/24/18 21:36 O2 Saturation 47.0 % (92.0-100.0) L 09/24/18 21:36 Phuc Test n/a 09/24/18 21:36 Vent Rate n/a 09/24/18 21:36 Inspired O2 21 09/24/18 21:36 Tidal Volume n/a 09/24/18 21:36 PEEP n/a 09/24/18 21:36 Pressure (ins/psv/peep) n/a 09/24/18 21:36 Critical Value dVassel 09/24/18 21:36 Sodium 137 mEq/L (136-145) 09/28/18 06:00 Potassium 3.7 mEq/L (3.5-5.1) 09/28/18 06:00 Chloride 106 mEq/L (98-107) 09/28/18 06:00 Carbon Dioxide 18.9 mEq/L (21.0-31.0) L 09/28/18 06:00 Anion Gap 15.8 (7.0-16.0) 09/28/18 06:00 BUN 51 mg/dL (7-25) H 09/28/18 06:00 Creatinine 2.2 mg/dL (0.7-1.3) H 09/28/18 06:00 Est GFR ( Amer) 40.2 ml/min (>90) 09/28/18 06:00 Est GFR (Non-Af Amer) 33.2 ml/min 09/28/18 06:00 BUN/Creatinine Ratio 23.2 09/28/18 06:00 Glucose 257 mg/dL (70-105) H 09/28/18 06:00 POC Glucose 217 MG/DL (70 - 105) H 09/28/18 16:45 Calcium 8.7 mg/dL (8.6-10.3) 09/28/18 06:00 Total Bilirubin 1.3 mg/dL (0.3-1.0) H 09/25/18 06:20 AST 13 U/L (13-39) 09/25/18 06:20 ALT 58 U/L (7-52) H 09/25/18 06:20 Alkaline Phosphatase 150 U/L (34-104) H 09/25/18 06:20 Creatine Kinase 34 U/L (30-223) 09/25/18 06:20 Troponin I 0.05 ng/mL (0.01-0.05) 09/25/18 06:20 Total Protein 6.4 gm/dL (6.0-8.3) 09/25/18 06:20 Albumin 3.5 gm/dL (4.2-5.5) L 09/25/18 06:20 Globulin 2.9 gm/dL 09/25/18 06:20 Albumin/Globulin Ratio 1.2 (1.0-1.8) 09/25/18 06:20 Triglycerides 88 mg/dL (<150) 09/25/18 06:20 Cholesterol 99 mg/dL (<200) 09/25/18 06:20 LDL Cholesterol Direct 56 mg/dL (75-193) L 09/25/18 06:20 HDL Cholesterol 38 mg/dL (23-92) 09/25/18 06:20 TSH 5.29 uIU/ml (0.34-5.60) 09/25/18 06:20 Urine Source RANDOM 09/27/18 22:45 Urine Color YELLOW 09/27/18 22:45 Urine Clarity CLEAR (CLEAR) 09/27/18 22:45 Urine pH 5.5 (4.6 - 8.0) 09/27/18 22:45 Ur Specific [place] 1.010 (1.005-1.030) 09/27/18 22:45 Urine Protein TRACE mg/dL (NEGATIVE) 09/27/18 22:45 Urine Glucose (UA) 250 mg/dL (NEGATIVE) H 09/27/18 22:45 Urine Ketones NEGATIVE mg/dL (NEGATIVE) 09/27/18 22:45 Urine Blood LARGE (NEGATIVE) H 09/27/18 22:45 Urine Nitrate NEGATIVE (NEGATIVE) 09/27/18 22:45 Urine Bilirubin NEGATIVE (NEGATIVE) 09/27/18 22:45 Urine Urobilinogen 0.2 E.U./dL (0.2 - 1.0) 09/27/18 22:45 Ur Leukocyte Esterase NEGATIVE (NEGATIVE) 09/27/18 22:45 Urine RBC NONE SEEN /hpf (0-5) 09/27/18 22:45 Urine WBC 0-2 /hpf (0-5) 09/27/18 22:45 Ur Epithelial Cells OCCASIONAL /lpf (FEW) 09/27/18 22:45 Urine Bacteria OCCASIONAL /hpf (NONE SEEN) 09/27/18 22:45 Random Vancomycin 17.3 ug/mL (5.0-40.0) 09/28/18 06:00 - Physical Exam Vitals and I&O: Vital Signs Temp 97.4 F 09/28/18 20:00 Pulse 105 09/28/18 20:00 Resp 20 09/28/18 23:00 BP 104/61 09/28/18 20:00 Pulse Ox 98 09/28/18 20:00 Intake & Output 09/28/18 09/28/18 09/29/18 06:59 18:59 06:59 Intake Total 820 90 Output Total 300 Balance 520 90 Weight (lbs) 119.295 kg 119.295 kg Intake: Intake, IV Amount 100 50 Piperacillin Sodium/ 100 50 Tazobact 3.375 gm In Sodium Chloride 0.9% 50 ml @ 100 mls/hr IV Q8HR [facility] Rx#:[id number] Oral 720 40 Output: Urine 300 Other: # Voids 4 3 # Bowel Movements 2 1 Stool Characteristics Soft Formed Weight Source Bedscale Bedscale Active Medications: Current Medications Acetaminophen (Tylenol) 650 mg GT Q4HR PRN PRN Reason: Pain or Fever >101 Stop: 11/24/18 09:33 Last Admin: 09/28/18 02:06 Dose: 650 mg Albuterol Sulfate (Albuterol 2.5mg/3ml Neb Ud) 2.5 mg HHN Q6HRT PRN PRN Reason: Shortness of Breath Stop: 11/24/18 09:34 Amiodarone HCl (Cordarone) 200 mg PO BID [facility] Stop: 11/24/18 16:59 Last Admin: 09/28/18 16:50 Dose: 200 mg Ascorbic Acid (Vitamin C) 500 mg PO DAILY [facility] Stop: 11/25/18 08:59 Last Admin: 09/28/18 08:44 Dose: 500 mg [place] Oil/[place] Balsam/Trypsin (Venelex) 1 appl TP DAILY [facility] Stop: 11/25/18 16:59 Last Admin: 09/28/18 08:44 Dose: 1 appl Dextrose (D50w) 50 ml IVP PRN PRN PRN Reason: Blood Glucose less than 70 Stop: 11/24/18 03:46 Dextrose (Glutose 40%) 18.75 gm PO PRN PRN PRN Reason: Blood Glucose less than 70 Stop: 11/24/18 03:46 Diltiazem HCl (Cardizem) 20 mg IVP Q4HR PRN PRN Reason: A FIB Stop: 11/24/18 11:21 Last Admin: 09/25/18 11:52 Dose: 20 mg Furosemide (Lasix) 40 mg IVP DAILY [facility] Stop: 11/24/18 08:59 Last Admin: 09/28/18 08:44 Dose: 40 mg Glucagon (Glucagen) 1 mg IM PRN PRN PRN Reason: Blood Glucose less than 70 Stop: 11/24/18 03:46 Piperacillin Sod/Tazobactam (Sod 3.375 gm/ Sodium Chloride) 50 mls @ 100 mls/ hr IV Q8HR [facility] Stop: 11/24/18 20:59 Last Admin: 09/28/18 21:18 Dose: 100 mls/hr Vancomycin HCl 1.25 gm/ Sodium (Chloride) 250 mls @ 165 mls/hr IV Q24H [facility] Stop: 11/27/18 08:59 Last Admin: 09/28/18 09:26 Dose: 165 mls/hr Insulin Human Lispro (Humalog Insulin Sliding Scale) 0 units SUBQ BIDAC [facility]; Protocol Stop: 11/24/18 07:29 Last Admin: 09/28/18 18:16 Dose: 4 units Lorazepam (Ativan) 1 mg IVP Q4HR PRN; Protocol PRN Reason: Anxiety Stop: 11/24/18 02:37 Miscellaneous (Vancomycin Iv Per Pharmacy) 1 ea MC PRN PRN PRN Reason: PROTOCOL Stop: 11/24/18 17:22 Mupirocin (Bactroban Oint) 1 appl NS BID [facility] Stop: 10/01/18 09:01 Last Admin: 09/28/18 16:51 Dose: 1 appl Rivaroxaban (Xarelto) 20 mg PO QDPC [facility] Stop: 11/25/18 08:59 Last Admin: 09/28/18 08:44 Dose: 20 mg General: no acute distress, well developed, well nourished HEENT: atraumatic, normocephalic, PERRLA Neck: supple, no thyromegaly Cardiovascular: S1S2, regular Lungs: clear to auscultation bilaterally, clear to percussion Abdomen: soft, no tender, no distended Extremities: edema, no cyanosis, no clubbing Neurological: other (redness improving.) Skin: intact Infectious Disease Assmt/Plan - Assessment Assessment: 1. Cellulitis of both legs. improving. 2. Cellulitis of both arms. 3. Congestive heart failure. 4. Sacral decubitus ulcer stage II. 5. Aggressive behavior. 6. Dementia. 7. Hypertension. 8. Coronary artery disease. 9. Renal insufficiency, chronic versus acute. 10. Chronic obstructive pulmonary disease, asthma. 11. 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 - Plan Plan: CPM. continue vanco iv and zosyn. Nutritional Asmnt/Malnutr-PDOC - Dietary Evaluation Malnutrition Findings (Please click <Entered> for more info): Nutritional Asmnt/Malnutrition Start: 09/26/18 15: 55 Text: Status: Complete Freq: Protocol: Document 09/26/18 15:55 LCHENG (Rec: 09/26/18 16:16 [email or web address]) Nutritional Asmnt/Malnutrition Patient General Information Nutritional Screening High Risk Consult Diagnosis CHF, cellulitis, UTI Pertinent Medical Hx/Surgical Hx HTN, DM, CAD, CHF, asthma/COPD , dementia Subjective Information Consult received for elevated glucose level. Pt seen lying in bed at time of visit, falling asleep during visit. Per nurse, pt is always hungry and asking for food. glucose 396 at admission noted. Current Diet Order/ Nutrition Support [facility] soft chopped, double portion Pertinent Medications vit C, lasix, humalog, piperacillilin Pertinent Labs 09/26 BUN 56, Cr 2.3, glucose 214, POC 205-302 Nutritional Hx/Data Height 1.83 m Height (Calculated Centimeters) 182.9 Current Weight (lbs) 119.295 kg Weight (Calculated Kilograms) 119.3 Weight (Calculated Grams) 145621.8 [place] Body Weight 178 Body Mass Index (BMI) 35.6 Weight Status Obese GI Symptoms GI Symptoms None Last BM 12/24 x 2 Skin Integrity/Comment: rash to R/L hand, R/L lower extremities, pressure area to sacrum, skin tear to left foot . Mauricio 16 Current %PO Good (75-100%) Estimated Nutritional Goals BEE in Kcals: Adj wt of IBW Calories/Kcals/Kg 23-27 Kcals Calculated 8806-2997 Protein: Adj wt of IBW Protein g/k.7-0.8 Protein Calculated 63-72 Fluid: ml 2069-243ml (1ml/kcal) Nutritional Problem 1. Problem Problem altered nutrition related labs Etiology hyperglycemia, possible renal dysfunction Signs/Symptoms: gluocse 396, POC 205, BUN 56, Cr 2.3 Malnutrition Alert Is there a minimum of two criteria No selected? Query Text:Check all the applicable criteria. A minimum of two criteria are recommended for diagnosis of either severe or non-severe malnutrition. Malnutrition Related to Morbid Obesity Malnutrition related to morbid obesity No Intervention/Recommendation Comments 1. Recommend to add CCHO diet d/t hyperglycemia. MISSY Haynes notified. Consider providing diabetic education when pt available. 2. Monitor PO intake, wt, labs and skin integrity 3. F/U as high risk in 2-3 days Expected Outcomes/Goals Expected Outcomes/Goals 1. PO intake to meet at least 75% of nutritional needs. 2. Wt stability, skin to remain intact, labs to approach WNL.
[2018-09-29 06:43] LABS: % BASOPHILS 2.3 % (0.0-2.0); % EOSINOPHILS 1.7 % (0.0-5.0); % LYMPHOCYTES 13.9 % (20.0-50.0); % MONOCYTES 5.9 % (2.0-10.0); % NEUTROPHILS 76.2 % (40.0-80.0); BASOPHILE ABSOLUTE 0.2 Th/cumm (0-0.2); EOSINOPHILE ABSOLUTE 0.1 Th/cmm (0.1-0.4); HEMATOCRIT 39.3 % (41.0-60); HEMOGLOBIN 12.7 gm/dL (12-16); LYMPHOCYTE ABSOLUTE 1.2 Th/cmm (1.5-3.0); MEAN CELL VOLUME 89.4 fl (80-99); MEAN CORPUSCULAR HEMOGLOBIN 28.9 pg (26.0-30.0); MEAN CORPUSCULAR HGB CONC 32.3 pg (28.0-36.0); MONOCYTE ABSOLUTE 0.5 Th/cmm (0.3-1.0); NEUTROPHILE ABSOLUTE 6.3 Th/cmm (1.8-8.0); PLATELET COUNT 190 Th/cmm (150-400); RED CELL DISTRIBUTION WIDTH 21.9 % (11.5-20.0); WHITE BLOOD COUNT 8.3 Th/cmm (4.8-10.8)
[2018-09-29 06:59] LABS: ANION GAP 18.1 (7.0-16.0); CALCIUM SERUM 8.7 mg/dL (8.6-10.3); CARBON DIOXIDE 18.9 mEq/L (21.0-31.0); CREATININE - SERUM 2.3 mg/dL (0.7-1.3); GFR AFRICAN-AMERICAN 38.2 ml/min (>90); GFR NON AFRICAN-AMERICAN 31.5 ml/min
[2018-09-29] MEDS: INSULIN LISPRO SLIDING SCALE 100 UNITS/ML UNIT SUBQ SCH ×2 (07:55→17:06)
[2018-09-29] MEDS: Venelex 60gm Tube TP SCH (09:00)
--- NOTE | 2018-09-29 10:58 | General Progress Note ---
Subjective - Review of Systems Service Date: 09/29/18 Subjective: Patient has complained of mild discomfort both upper lower extremity patient still has less aggressive patient to have psychiatrist evaluation Objective - Results Result Diagrams: 09/29/18 06:15 09/29/18 06:15 Recent Labs: Laboratory Last Values WBC 8.3 Th/cmm (4.8-10.8) 09/29/18 06:15 RBC 4.40 Mil/cmm (4.30-5.70) 09/29/18 06:15 Hgb 12.7 gm/dL (12-16) 09/29/18 06:15 Hct 39.3 % (41.0-60) L 09/29/18 06:15 MCV 89.4 fl (80-99) 09/29/18 06:15 MCH 28.9 pg (26.0-30.0) 09/29/18 06:15 MCHC Differential 32.3 pg (28.0-36.0) 09/29/18 06:15 RDW 21.9 % (11.5-20.0) H 09/29/18 06:15 Plt Count 190 Th/cmm (150-400) 09/29/18 06:15 MPV 9.0 fl 09/29/18 06:15 Add Manual Diff YES 09/28/18 06:00 Neutrophils % 76.2 % (40.0-80.0) 09/29/18 06:15 Band Neutrophils % 1 % (0-10) 09/28/18 06:00 Lymphocytes % 13.9 % (20.0-50.0) L 09/29/18 06:15 Monocytes % 5.9 % (2.0-10.0) 09/29/18 06:15 Eosinophils % 1.7 % (0.0-5.0) 09/29/18 06:15 Basophils % 2.3 % (0.0-2.0) H 09/29/18 06:15 Neutrophils (Manual) 76 % (40-80) 09/28/18 06:00 Lymphocytes 11 % (20-50) L 09/28/18 06:00 Monocytes 6 % (2-10) 09/28/18 06:00 Eosinophils 6 % (0-5) H 09/28/18 06:00 Anisocytosis 2+ 09/28/18 06:00 Specimen Source aterial 09/24/18 21:36 Sample Site LB 09/24/18 21:36 pH 7.32 (7.35-7.45) L 09/24/18 21:36 pCO2 37.2 mmHg (35.0-45.0) 09/24/18 21:36 pO2 27.8 mmHg (80.0-100.0) L* 09/24/18 21:36 HCO3 18.6 mEq/L (20.0-26.0) L 09/24/18 21:36 Base Excess -6.8 mEq/L (-3.0-3.0) L 09/24/18 21:36 O2 Saturation 47.0 % (92.0-100.0) L 09/24/18 21:36 Phuc Test n/a 09/24/18 21:36 Vent Rate n/a 09/24/18 21:36 Inspired O2 21 09/24/18 21:36 Tidal Volume n/a 09/24/18 21:36 PEEP n/a 09/24/18 21:36 Pressure (ins/psv/peep) n/a 09/24/18 21:36 Critical Value dVassel 09/24/18 21:36 Sodium 138 mEq/L (136-145) 09/29/18 06:15 Potassium 4.0 mEq/L (3.5-5.1) 09/29/18 06:15 Chloride 105 mEq/L (98-107) 09/29/18 06:15 Carbon Dioxide 18.9 mEq/L (21.0-31.0) L 09/29/18 06:15 Anion Gap 18.1 (7.0-16.0) H 09/29/18 06:15 BUN 52 mg/dL (7-25) H 09/29/18 06:15 Creatinine 2.3 mg/dL (0.7-1.3) H 09/29/18 06:15 Est GFR ( Amer) 38.2 ml/min (>90) 09/29/18 06:15 Est GFR (Non-Af Amer) 31.5 ml/min 09/29/18 06:15 BUN/Creatinine Ratio 22.6 09/29/18 06:15 Glucose 249 mg/dL (70-105) H 09/29/18 06:15 POC Glucose 217 MG/DL (70 - 105) H 09/29/18 06:56 Calcium 8.7 mg/dL (8.6-10.3) 09/29/18 06:15 Total Bilirubin 1.3 mg/dL (0.3-1.0) H 09/25/18 06:20 AST 13 U/L (13-39) 09/25/18 06:20 ALT 58 U/L (7-52) H 09/25/18 06:20 Alkaline Phosphatase 150 U/L (34-104) H 09/25/18 06:20 Creatine Kinase 34 U/L (30-223) 09/25/18 06:20 Troponin I 0.05 ng/mL (0.01-0.05) 09/25/18 06:20 Total Protein 6.4 gm/dL (6.0-8.3) 09/25/18 06:20 Albumin 3.5 gm/dL (4.2-5.5) L 09/25/18 06:20 Globulin 2.9 gm/dL 09/25/18 06:20 Albumin/Globulin Ratio 1.2 (1.0-1.8) 09/25/18 06:20 Triglycerides 88 mg/dL (<150) 09/25/18 06:20 Cholesterol 99 mg/dL (<200) 09/25/18 06:20 LDL Cholesterol Direct 56 mg/dL (75-193) L 09/25/18 06:20 HDL Cholesterol 38 mg/dL (23-92) 09/25/18 06:20 TSH 5.29 uIU/ml (0.34-5.60) 09/25/18 06:20 Urine Source RANDOM 09/27/18 22:45 Urine Color YELLOW 09/27/18 22:45 Urine Clarity CLEAR (CLEAR) 09/27/18 22:45 Urine pH 5.5 (4.6 - 8.0) 09/27/18 22:45 Ur Specific [place] 1.010 (1.005-1.030) 09/27/18 22:45 Urine Protein TRACE mg/dL (NEGATIVE) 09/27/18 22:45 Urine Glucose (UA) 250 mg/dL (NEGATIVE) H 09/27/18 22:45 Urine Ketones NEGATIVE mg/dL (NEGATIVE) 09/27/18 22:45 Urine Blood LARGE (NEGATIVE) H 09/27/18 22:45 Urine Nitrate NEGATIVE (NEGATIVE) 09/27/18 22:45 Urine Bilirubin NEGATIVE (NEGATIVE) 09/27/18 22:45 Urine Urobilinogen 0.2 E.U./dL (0.2 - 1.0) 09/27/18 22:45 Ur Leukocyte Esterase NEGATIVE (NEGATIVE) 09/27/18 22:45 Urine RBC NONE SEEN /hpf (0-5) 09/27/18 22:45 Urine WBC 0-2 /hpf (0-5) 09/27/18 22:45 Ur Epithelial Cells OCCASIONAL /lpf (FEW) 09/27/18 22:45 Urine Bacteria OCCASIONAL /hpf (NONE SEEN) 09/27/18 22:45 Random Vancomycin 17.3 ug/mL (5.0-40.0) 09/28/18 06:00 - Physical Exam Vitals and I&O: Vital Signs Temp 96.9 F 09/29/18 08:00 Pulse 81 09/29/18 08:00 Resp 19 09/29/18 08:00 BP 121/66 09/29/18 08:57 Pulse Ox 90 09/29/18 08:00 Intake & Output 09/28/18 09/29/18 09/29/18 18:59 06:59 18:59 Intake Total 340 50 Balance 340 50 Weight (lbs) 119.295 kg 119.295 kg Intake: Intake, IV Amount 300 50 Piperacillin Sodium/ 50 50 Tazobact 3.375 gm In Sodium Chloride 0.9% 50 ml @ 100 mls/hr IV Q8HR [facility] Rx#:[id number] Vancomycin HCl 1.25 gm In 250 Sodium Chloride 0.9% 250 ml @ 165 mls/hr IV Q24H [facility] Rx#:[id number] Oral 40 Other: # Voids 3 4 # Bowel Movements 1 2 Stool Characteristics Soft Formed Weight Source Bedscale Bedscale Active Medications: Current Medications Acetaminophen (Tylenol) 650 mg GT Q4HR PRN PRN Reason: Pain or Fever >101 Stop: 11/24/18 09:33 Last Admin: 09/29/18 08:53 Dose: 650 mg Albuterol Sulfate (Albuterol 2.5mg/3ml Neb Ud) 2.5 mg HHN Q6HRT PRN PRN Reason: Shortness of Breath Stop: 11/24/18 09:34 Amiodarone HCl (Cordarone) 200 mg PO BID [facility] Stop: 11/24/18 16:59 Last Admin: 09/29/18 09:01 Dose: Not Given Ascorbic Acid (Vitamin C) 500 mg PO DAILY [facility] Stop: 11/25/18 08:59 Last Admin: 09/29/18 08:53 Dose: 500 mg [place] Oil/[place] Balsam/Trypsin (Venelex) 1 appl TP DAILY [facility] Stop: 11/25/18 16:59 Last Admin: 09/29/18 09:00 Dose: 1 appl Dextrose (D50w) 50 ml IVP PRN PRN PRN Reason: Blood Glucose less than 70 Stop: 11/24/18 03:46 Dextrose (Glutose 40%) 18.75 gm PO PRN PRN PRN Reason: Blood Glucose less than 70 Stop: 11/24/18 03:46 Diltiazem HCl (Cardizem) 20 mg IVP Q4HR PRN PRN Reason: A FIB Stop: 11/24/18 11:21 Last Admin: 09/25/18 11:52 Dose: 20 mg Furosemide (Lasix) 40 mg IVP DAILY [facility] Stop: 11/24/18 08:59 Last Admin: 09/29/18 08:57 Dose: 40 mg Glucagon (Glucagen) 1 mg IM PRN PRN PRN Reason: Blood Glucose less than 70 Stop: 11/24/18 03:46 Piperacillin Sod/Tazobactam (Sod 3.375 gm/ Sodium Chloride) 50 mls @ 100 mls/ hr IV Q8HR [facility] Stop: 11/24/18 20:59 Last Admin: 09/29/18 04:25 Dose: 100 mls/hr Vancomycin HCl 1.25 gm/ Sodium (Chloride) 250 mls @ 165 mls/hr IV Q24H [facility] Stop: 11/27/18 08:59 Last Admin: 09/29/18 10:45 Dose: 165 mls/hr Insulin Human Lispro (Humalog Insulin Sliding Scale) 0 units SUBQ BIDAC [facility]; Protocol Stop: 11/24/18 07:29 Last Admin: 09/29/18 07:55 Dose: 4 units Lorazepam (Ativan) 1 mg IVP Q4HR PRN; Protocol PRN Reason: Anxiety Stop: 11/24/18 02:37 Miscellaneous (Vancomycin Iv Per Pharmacy) 1 ea [facility] PRN PRN PRN Reason: PROTOCOL Stop: 11/24/18 17:22 Mupirocin (Bactroban Oint) 1 appl NS BID [facility] Stop: 10/01/18 09:01 Last Admin: 09/29/18 09:03 Dose: Not Given Rivaroxaban (Xarelto) 20 mg PO QDPC [facility] Stop: 11/25/18 08:59 Last Admin: 09/29/18 09:02 Dose: Not Given General: No acute distress Neck: Supple, JVD, +2 carotid pulse wo bruit (flat) Cardiovascular: Systolic murmurs, Other (atrial fibrillation) Lungs: Clear to auscultation, Normal air movement Abdomen: Bowel sounds, Soft Neurological: Strength at 5/5 X4 ext, Normal tone, Cranial nerves 3-12 NL, Reflexes 2+ Psych/Mental Status: Other (aggressive behavior) Assessment/Plan - Assessment Assessment: Atrial fibrillation cellulitis both upper and lower extremity Diabetes mellitus type 2 COPD Coronary artery disease Sacral decubitus ulcer Asthma Diabetic Ckd 3 - Plan Plan: Continue IV antibiotics control the heart rate and anticoagulation of the patient Nutritional Asmnt/Malnutr-PDOC - Dietary Evaluation Malnutrition Findings (Please click <Entered> for more info): Nutritional Asmnt/Malnutrition Start: 09/26/18 15: 55 Text: Status: Complete Freq: Protocol: Document 09/26/18 15:55 LCHENG (Rec: 09/26/18 16:16 LCHENG [email or web address]) Nutritional Asmnt/Malnutrition Patient General Information Nutritional Screening High Risk Consult Diagnosis CHF, cellulitis, UTI Pertinent Medical Hx/Surgical Hx HTN, DM, CAD, CHF, asthma/COPD , dementia Subjective Information Consult received for elevated glucose level. Pt seen lying in bed at time of visit, falling asleep during visit. Per nurse, pt is always hungry and asking for food. glucose 396 at admission noted. Current Diet Order/ Nutrition Support [facility] soft chopped, double portion Pertinent Medications vit C, lasix, humalog, piperacillilin Pertinent Labs 09/26 BUN 56, Cr 2.3, glucose 214, POC 205-302 Nutritional Hx/Data Height 1.83 m Height (Calculated Centimeters) 182.9 Current Weight (lbs) 119.295 kg Weight (Calculated Kilograms) 119.3 Weight (Calculated Grams) 144148.8 [place] Body Weight 178 Body Mass Index (BMI) 35.6 Weight Status Obese GI Symptoms GI Symptoms None Last BM 12/24 x 2 Skin Integrity/Comment: rash to R/L hand, R/L lower extremities, pressure area to sacrum, skin tear to left foot . Mauricio 16 Current %PO Good (75-100%) Estimated Nutritional Goals BEE in Kcals: Adj wt of IBW Calories/Kcals/Kg 23-27 Kcals Calculated 6725-3705 Protein: Adj wt of IBW Protein g/k.7-0.8 Protein Calculated 63-72 Fluid: ml 2069-243ml (1ml/kcal) Nutritional Problem 1. Problem Problem altered nutrition related labs Etiology hyperglycemia, possible renal dysfunction Signs/Symptoms: gluocse 396, POC 205, BUN 56, Cr 2.3 Malnutrition Alert Is there a minimum of two criteria No selected? Query Text:Check all the applicable criteria. A minimum of two criteria are recommended for diagnosis of either severe or non-severe malnutrition. Malnutrition Related to Morbid Obesity Malnutrition related to morbid obesity No Intervention/Recommendation Comments 1. Recommend to add CCHO diet d/t hyperglycemia. MISSY Haynes notified. Consider providing diabetic education when pt available. 2. Monitor PO intake, wt, labs and skin integrity 3. F/U as high risk in 2-3 days Expected Outcomes/Goals Expected Outcomes/Goals 1. PO intake to meet at least 75% of nutritional needs. 2. Wt stability, skin to remain intact, labs to approach WNL.
--- NOTE | 2018-09-29 18:03 | Internal Medicine Prog Note ---
Internal Medicine Subjective - Subjective Service Date: 09/29/18 Patient is:: awake, verbal, agitated, confused Patient Complaints of:: other (bilateral lower leg cellulitis, buttock decubiti noted.) Per staff patient has:: no adverse event, no episodes of fall Internal Medicine Objective - Results Result Diagrams: 09/29/18 06:15 09/29/18 06:15 Recent Labs: Laboratory Last Values WBC 8.3 Th/cmm (4.8-10.8) 09/29/18 06:15 RBC 4.40 Mil/cmm (4.30-5.70) 09/29/18 06:15 Hgb 12.7 gm/dL (12-16) 09/29/18 06:15 Hct 39.3 % (41.0-60) L 09/29/18 06:15 MCV 89.4 fl (80-99) 09/29/18 06:15 MCH 28.9 pg (26.0-30.0) 09/29/18 06:15 MCHC Differential 32.3 pg (28.0-36.0) 09/29/18 06:15 RDW 21.9 % (11.5-20.0) H 09/29/18 06:15 Plt Count 190 Th/cmm (150-400) 09/29/18 06:15 MPV 9.0 fl 09/29/18 06:15 Add Manual Diff YES 09/28/18 06:00 Neutrophils % 76.2 % (40.0-80.0) 09/29/18 06:15 Band Neutrophils % 1 % (0-10) 09/28/18 06:00 Lymphocytes % 13.9 % (20.0-50.0) L 09/29/18 06:15 Monocytes % 5.9 % (2.0-10.0) 09/29/18 06:15 Eosinophils % 1.7 % (0.0-5.0) 09/29/18 06:15 Basophils % 2.3 % (0.0-2.0) H 09/29/18 06:15 Neutrophils (Manual) 76 % (40-80) 09/28/18 06:00 Lymphocytes 11 % (20-50) L 09/28/18 06:00 Monocytes 6 % (2-10) 09/28/18 06:00 Eosinophils 6 % (0-5) H 09/28/18 06:00 Anisocytosis 2+ 09/28/18 06:00 Specimen Source aterial 09/24/18 21:36 Sample Site LB 09/24/18 21:36 pH 7.32 (7.35-7.45) L 09/24/18 21:36 pCO2 37.2 mmHg (35.0-45.0) 09/24/18 21:36 pO2 27.8 mmHg (80.0-100.0) L* 09/24/18 21:36 HCO3 18.6 mEq/L (20.0-26.0) L 09/24/18 21:36 Base Excess -6.8 mEq/L (-3.0-3.0) L 09/24/18 21:36 O2 Saturation 47.0 % (92.0-100.0) L 09/24/18 21:36 Phuc Test n/a 09/24/18 21:36 Vent Rate n/a 09/24/18 21:36 Inspired O2 21 09/24/18 21:36 Tidal Volume n/a 09/24/18 21:36 PEEP n/a 09/24/18 21:36 Pressure (ins/psv/peep) n/a 09/24/18 21:36 Critical Value dVassel 09/24/18 21:36 Sodium 138 mEq/L (136-145) 09/29/18 06:15 Potassium 4.0 mEq/L (3.5-5.1) 09/29/18 06:15 Chloride 105 mEq/L (98-107) 09/29/18 06:15 Carbon Dioxide 18.9 mEq/L (21.0-31.0) L 09/29/18 06:15 Anion Gap 18.1 (7.0-16.0) H 09/29/18 06:15 BUN 52 mg/dL (7-25) H 09/29/18 06:15 Creatinine 2.3 mg/dL (0.7-1.3) H 09/29/18 06:15 Est GFR ( Amer) 38.2 ml/min (>90) 09/29/18 06:15 Est GFR (Non-Af Amer) 31.5 ml/min 09/29/18 06:15 BUN/Creatinine Ratio 22.6 09/29/18 06:15 Glucose 249 mg/dL (70-105) H 09/29/18 06:15 POC Glucose 271 MG/DL (70 - 105) H 09/29/18 16:56 Calcium 8.7 mg/dL (8.6-10.3) 09/29/18 06:15 Total Bilirubin 1.3 mg/dL (0.3-1.0) H 09/25/18 06:20 AST 13 U/L (13-39) 09/25/18 06:20 ALT 58 U/L (7-52) H 09/25/18 06:20 Alkaline Phosphatase 150 U/L (34-104) H 09/25/18 06:20 Creatine Kinase 34 U/L (30-223) 09/25/18 06:20 Troponin I 0.05 ng/mL (0.01-0.05) 09/25/18 06:20 Total Protein 6.4 gm/dL (6.0-8.3) 09/25/18 06:20 Albumin 3.5 gm/dL (4.2-5.5) L 09/25/18 06:20 Globulin 2.9 gm/dL 09/25/18 06:20 Albumin/Globulin Ratio 1.2 (1.0-1.8) 09/25/18 06:20 Triglycerides 88 mg/dL (<150) 09/25/18 06:20 Cholesterol 99 mg/dL (<200) 09/25/18 06:20 LDL Cholesterol Direct 56 mg/dL (75-193) L 09/25/18 06:20 HDL Cholesterol 38 mg/dL (23-92) 09/25/18 06:20 TSH 5.29 uIU/ml (0.34-5.60) 09/25/18 06:20 Urine Source RANDOM 09/27/18 22:45 Urine Color YELLOW 09/27/18 22:45 Urine Clarity CLEAR (CLEAR) 09/27/18 22:45 Urine pH 5.5 (4.6 - 8.0) 09/27/18 22:45 Ur Specific [place] 1.010 (1.005-1.030) 09/27/18 22:45 Urine Protein TRACE mg/dL (NEGATIVE) 09/27/18 22:45 Urine Glucose (UA) 250 mg/dL (NEGATIVE) H 09/27/18 22:45 Urine Ketones NEGATIVE mg/dL (NEGATIVE) 09/27/18 22:45 Urine Blood LARGE (NEGATIVE) H 09/27/18 22:45 Urine Nitrate NEGATIVE (NEGATIVE) 09/27/18 22:45 Urine Bilirubin NEGATIVE (NEGATIVE) 09/27/18 22:45 Urine Urobilinogen 0.2 E.U./dL (0.2 - 1.0) 09/27/18 22:45 Ur Leukocyte Esterase NEGATIVE (NEGATIVE) 09/27/18 22:45 Urine RBC NONE SEEN /hpf (0-5) 09/27/18 22:45 Urine WBC 0-2 /hpf (0-5) 09/27/18 22:45 Ur Epithelial Cells OCCASIONAL /lpf (FEW) 09/27/18 22:45 Urine Bacteria OCCASIONAL /hpf (NONE SEEN) 09/27/18 22:45 Random Vancomycin 17.3 ug/mL (5.0-40.0) 09/28/18 06:00 - Physical Exam Vitals and I&O: Vital Signs Temp 96.9 F 09/29/18 08:00 Pulse 81 09/29/18 08:00 Resp 18 09/29/18 12:00 BP 121/66 09/29/18 08:57 Pulse Ox 90 09/29/18 08:00 Intake & Output 09/28/18 09/29/18 09/29/18 18:59 06:59 18:59 Intake Total 340 50 Balance 340 50 Weight (lbs) 263 lb 263 lb Intake: Intake, IV Amount 300 50 Piperacillin Sodium/ 50 50 Tazobact 3.375 gm In Sodium Chloride 0.9% 50 ml @ 100 mls/hr IV Q8HR [facility] Rx#:[id number] Vancomycin HCl 1.25 gm In 250 Sodium Chloride 0.9% 250 ml @ 165 mls/hr IV Q24H [facility] Rx#:[id number] Oral 40 Other: # Voids 3 4 # Bowel Movements 1 2 Stool Characteristics Soft Formed Weight Source Bedscale Bedscale Active Medications: Current Medications Acetaminophen (Tylenol) 650 mg GT Q4HR PRN PRN Reason: Pain or Fever >101 Stop: 11/24/18 09:33 Last Admin: 09/29/18 08:53 Dose: 650 mg Albuterol Sulfate (Albuterol 2.5mg/3ml Neb Ud) 2.5 mg HHN Q6HRT PRN PRN Reason: Shortness of Breath Stop: 11/24/18 09:34 Amiodarone HCl (Cordarone) 200 mg PO BID [facility] Stop: 11/24/18 16:59 Last Admin: 09/29/18 17:01 Dose: Not Given Ascorbic Acid (Vitamin C) 500 mg PO DAILY [facility] Stop: 11/25/18 08:59 Last Admin: 09/29/18 08:53 Dose: 500 mg [place] Oil/[place] Balsam/Trypsin (Venelex) 1 appl TP DAILY [facility] Stop: 11/25/18 16:59 Last Admin: 09/29/18 09:00 Dose: 1 appl Dextrose (D50w) 50 ml IVP PRN PRN PRN Reason: Blood Glucose less than 70 Stop: 11/24/18 03:46 Dextrose (Glutose 40%) 18.75 gm PO PRN PRN PRN Reason: Blood Glucose less than 70 Stop: 11/24/18 03:46 Diltiazem HCl (Cardizem) 20 mg IVP Q4HR PRN PRN Reason: A FIB Stop: 11/24/18 11:21 Last Admin: 09/25/18 11:52 Dose: 20 mg Furosemide (Lasix) 40 mg IVP DAILY [facility] Stop: 11/24/18 08:59 Last Admin: 09/29/18 08:57 Dose: 40 mg Glucagon (Glucagen) 1 mg IM PRN PRN PRN Reason: Blood Glucose less than 70 Stop: 11/24/18 03:46 Piperacillin Sod/Tazobactam (Sod 3.375 gm/ Sodium Chloride) 50 mls @ 100 mls/ hr IV Q8HR [facility] Stop: 11/24/18 20:59 Last Admin: 09/29/18 17:01 Dose: Not Given Vancomycin HCl 1.25 gm/ Sodium (Chloride) 250 mls @ 165 mls/hr IV Q24H [facility] Stop: 11/27/18 08:59 Last Admin: 09/29/18 10:45 Dose: 165 mls/hr Insulin Human Lispro (Humalog Insulin Sliding Scale) 0 units SUBQ BIDAC [facility]; Protocol Stop: 11/24/18 07:29 Last Admin: 09/29/18 17:06 Dose: 6 units Lorazepam (Ativan) 1 mg IVP Q4HR PRN; Protocol PRN Reason: Anxiety Stop: 11/24/18 02:37 Miscellaneous (Vancomycin Iv Per Pharmacy) 1 ea [facility] PRN PRN PRN Reason: PROTOCOL Stop: 11/24/18 17:22 Mupirocin (Bactroban Oint) 1 appl NS BID [facility] Stop: 10/01/18 09:01 Last Admin: 09/29/18 17:01 Dose: Not Given Rivaroxaban (Xarelto) 20 mg PO QDPC [facility] Stop: 11/25/18 08:59 Last Admin: 09/29/18 09:02 Dose: Not Given General: weak, demented HEENT: NC/AT, PERRLA Neck: Supple, No JVD Lungs: other (mild sob) Cardiovascular: RRR, Normal S1 Abdomen: soft, non-tender Extremities: edema, erythema, other (cellulitis both upper and lower extremity.) Neurological: no change, disorganized Internal Medicine Assmt/Plan - Assessment Assessment: Cellulitis of both legs. Cellulitis of both arms. Sacral Decubitus Ulcer Stage II. Aggressive Behavior. Renal insufficency, chronic vs acute. Mild UTI. Atrial Fibrillation. Diabetic CKD 3. HTN. Diabetes. Coronary Artery Disease. Congestive Heart Failure. Asthma/Copd. Dementia. - Plan Plan: continue ivabx f/u labs in am continue current plan of care Nutritional Asmnt/Malnutr-PDOC - Dietary Evaluation Malnutrition Findings (Please click <Entered> for more info): Nutritional Asmnt/Malnutrition Start: 09/26/18 15: 55 Text: Status: Complete Freq: Protocol: Document 09/26/18 15:55 LCHENG (Rec: 09/26/18 16:16 LCHENG [email or web address]) Nutritional Asmnt/Malnutrition Patient General Information Nutritional Screening High Risk Consult Diagnosis CHF, cellulitis, UTI Pertinent Medical Hx/Surgical Hx HTN, DM, CAD, CHF, asthma/COPD , dementia Subjective Information Consult received for elevated glucose level. Pt seen lying in bed at time of visit, falling asleep during visit. Per nurse, pt is always hungry and asking for food. glucose 396 at admission noted. Current Diet Order/ Nutrition Support [facility] soft chopped, double portion Pertinent Medications vit C, lasix, humalog, piperacillilin Pertinent Labs 09/26 BUN 56, Cr 2.3, glucose 214, POC 205-302 Nutritional Hx/Data Height 6 ft Height (Calculated Centimeters) 182.9 Current Weight (lbs) 263 lb Weight (Calculated Kilograms) 119.3 Weight (Calculated Grams) 287149.8 [place] Body Weight 178 Body Mass Index (BMI) 35.6 Weight Status Obese GI Symptoms GI Symptoms None Last BM 12/24 x 2 Skin Integrity/Comment: rash to R/L hand, R/L lower extremities, pressure area to sacrum, skin tear to left foot . Mauricio 16 Current %PO Good (75-100%) Estimated Nutritional Goals BEE in Kcals: Adj wt of IBW Calories/Kcals/Kg 23-27 Kcals Calculated 0053-0012 Protein: Adj wt of IBW Protein g/k.7-0.8 Protein Calculated 63-72 Fluid: ml 2069-243ml (1ml/kcal) Nutritional Problem 1. Problem Problem altered nutrition related labs Etiology hyperglycemia, possible renal dysfunction Signs/Symptoms: gluocse 396, POC 205, BUN 56, Cr 2.3 Malnutrition Alert Is there a minimum of two criteria No selected? Query Text:Check all the applicable criteria. A minimum of two criteria are recommended for diagnosis of either severe or non-severe malnutrition. Malnutrition Related to Morbid Obesity Malnutrition related to morbid obesity No Intervention/Recommendation Comments 1. Recommend to add CCHO diet d/t hyperglycemia. MISSY Haynes notified. Consider providing diabetic education when pt available. 2. Monitor PO intake, wt, labs and skin integrity 3. F/U as high risk in 2-3 days Expected Outcomes/Goals Expected Outcomes/Goals 1. PO intake to meet at least 75% of nutritional needs. 2. Wt stability, skin to remain intact, labs to approach WNL.
[2018-09-30] MEDS: Diltiazem 30 mg Tab PO SCH ×5 (02:25→20:21)
--- NOTE | 2018-09-30 07:25 | Progress Notes ---
DATE: SUBJECTIVE: Chart reviewed and the patient interviewed. Also discussed the patient's condition with the staff and reviewed records and labs. The patient is still confused and is still easily agitated and easily irritable. The patient also is cooperative with his treatment and he is compliant with taking his medications. He denies any intention to harm himself or others. He is also following directions easy. ASSESSMENT: The patient is still anxious, but not suicidal or psychotic. TREATMENT PLAN: Continue to monitor his behavior without psychotropic medications and continue to follow up. [facility]# [id number]
[2018-09-30] MEDS: INSULIN LISPRO SLIDING SCALE 100 UNITS/ML UNIT SUBQ SCH ×2 (07:29→20:20)
[2018-09-30 07:41] LABS: % BASOPHILS 1.8 % (0.0-2.0); % EOSINOPHILS 2.2 % (0.0-5.0); % LYMPHOCYTES 14.9 % (20.0-50.0); % MONOCYTES 6.4 % (2.0-10.0); % NEUTROPHILS 74.7 % (40.0-80.0); BASOPHILE ABSOLUTE 0.1 Th/cumm (0-0.2); EOSINOPHILE ABSOLUTE 0.2 Th/cmm (0.1-0.4); HEMATOCRIT 38.1 % (41.0-60); HEMOGLOBIN 12.7 gm/dL (12-16); LYMPHOCYTE ABSOLUTE 1.2 Th/cmm (1.5-3.0); MEAN CELL VOLUME 86.6 fl (80-99); MEAN CORPUSCULAR HGB CONC 33.5 pg (28.0-36.0); MEAN PLATELET VOLUME 8.5 fl; MONOCYTE ABSOLUTE 0.5 Th/cmm (0.3-1.0); NEUTROPHILE ABSOLUTE 5.8 Th/cmm (1.8-8.0); PLATELET COUNT 193 Th/cmm (150-400); RED BLOOD COUNT 4.39 Mil/cmm (4.30-5.70); RED CELL DISTRIBUTION WIDTH 21.9 % (11.5-20.0); WHITE BLOOD COUNT 7.8 Th/cmm (4.8-10.8)
[2018-09-30 08:05] LABS: ANION GAP 17.2 (7.0-16.0); CALCIUM SERUM 8.8 mg/dL (8.6-10.3); CARBON DIOXIDE 20.7 mEq/L (21.0-31.0); CREATININE - SERUM 2.3 mg/dL (0.7-1.3); GFR AFRICAN-AMERICAN 38.2 ml/min (>90); GFR NON AFRICAN-AMERICAN 31.5 ml/min; POTASSIUM SERUM 3.9 mEq/L (3.5-5.1)
[2018-09-30] MEDS: Venelex 60gm Tube TP SCH (11:14)
--- NOTE | 2018-09-30 12:12 | Internal Medicine Prog Note ---
Internal Medicine Subjective - Subjective Service Date: 09/30/18 Patient seen and examined:: chart reviewed Patient is:: awake, verbal, agitated, confused Per staff patient has:: no adverse event, no episodes of fall Internal Medicine Objective - Results Result Diagrams: 09/30/18 07:35 09/30/18 07:35 Recent Labs: Laboratory Last Values WBC 7.8 Th/cmm (4.8-10.8) 09/30/18 07:35 RBC 4.39 Mil/cmm (4.30-5.70) 09/30/18 07:35 Hgb 12.7 gm/dL (12-16) 09/30/18 07:35 Hct 38.1 % (41.0-60) L 09/30/18 07:35 MCV 86.6 fl (80-99) 09/30/18 07:35 MCH 29.0 pg (26.0-30.0) 09/30/18 07:35 MCHC Differential 33.5 pg (28.0-36.0) 09/30/18 07:35 RDW 21.9 % (11.5-20.0) H 09/30/18 07:35 Plt Count 193 Th/cmm (150-400) 09/30/18 07:35 MPV 8.5 fl 09/30/18 07:35 Add Manual Diff YES 09/28/18 06:00 Neutrophils % 74.7 % (40.0-80.0) 09/30/18 07:35 Band Neutrophils % 1 % (0-10) 09/28/18 06:00 Lymphocytes % 14.9 % (20.0-50.0) L 09/30/18 07:35 Monocytes % 6.4 % (2.0-10.0) 09/30/18 07:35 Eosinophils % 2.2 % (0.0-5.0) 09/30/18 07:35 Basophils % 1.8 % (0.0-2.0) 09/30/18 07:35 Neutrophils (Manual) 76 % (40-80) 09/28/18 06:00 Lymphocytes 11 % (20-50) L 09/28/18 06:00 Monocytes 6 % (2-10) 09/28/18 06:00 Eosinophils 6 % (0-5) H 09/28/18 06:00 Anisocytosis 2+ 09/28/18 06:00 Specimen Source aterial 09/24/18 21:36 Sample Site LB 09/24/18 21:36 pH 7.32 (7.35-7.45) L 09/24/18 21:36 pCO2 37.2 mmHg (35.0-45.0) 09/24/18 21:36 pO2 27.8 mmHg (80.0-100.0) L* 09/24/18 21:36 HCO3 18.6 mEq/L (20.0-26.0) L 09/24/18 21:36 Base Excess -6.8 mEq/L (-3.0-3.0) L 09/24/18 21:36 O2 Saturation 47.0 % (92.0-100.0) L 09/24/18 21:36 Phuc Test n/a 09/24/18 21:36 Vent Rate n/a 09/24/18 21:36 Inspired O2 21 09/24/18 21:36 Tidal Volume n/a 09/24/18 21:36 PEEP n/a 09/24/18 21:36 Pressure (ins/psv/peep) n/a 09/24/18 21:36 Critical Value dVassel 09/24/18 21:36 Sodium 137 mEq/L (136-145) 09/30/18 07:35 Potassium 3.9 mEq/L (3.5-5.1) 09/30/18 07:35 Chloride 103 mEq/L (98-107) 09/30/18 07:35 Carbon Dioxide 20.7 mEq/L (21.0-31.0) L 09/30/18 07:35 Anion Gap 17.2 (7.0-16.0) H 09/30/18 07:35 BUN 55 mg/dL (7-25) H 09/30/18 07:35 Creatinine 2.3 mg/dL (0.7-1.3) H 09/30/18 07:35 Est GFR ( Amer) 38.2 ml/min (>90) 09/30/18 07:35 Est GFR (Non-Af Amer) 31.5 ml/min 09/30/18 07:35 BUN/Creatinine Ratio 23.9 09/30/18 07:35 Glucose 249 mg/dL (70-105) H 09/30/18 07:35 POC Glucose 238 MG/DL (70 - 105) H 09/30/18 06:51 Calcium 8.8 mg/dL (8.6-10.3) 09/30/18 07:35 Total Bilirubin 1.3 mg/dL (0.3-1.0) H 09/25/18 06:20 AST 13 U/L (13-39) 09/25/18 06:20 ALT 58 U/L (7-52) H 09/25/18 06:20 Alkaline Phosphatase 150 U/L (34-104) H 09/25/18 06:20 Creatine Kinase 34 U/L (30-223) 09/25/18 06:20 Troponin I 0.05 ng/mL (0.01-0.05) 09/25/18 06:20 Total Protein 6.4 gm/dL (6.0-8.3) 09/25/18 06:20 Albumin 3.5 gm/dL (4.2-5.5) L 09/25/18 06:20 Globulin 2.9 gm/dL 09/25/18 06:20 Albumin/Globulin Ratio 1.2 (1.0-1.8) 09/25/18 06:20 Triglycerides 88 mg/dL (<150) 09/25/18 06:20 Cholesterol 99 mg/dL (<200) 09/25/18 06:20 LDL Cholesterol Direct 56 mg/dL (75-193) L 09/25/18 06:20 HDL Cholesterol 38 mg/dL (23-92) 09/25/18 06:20 TSH 5.29 uIU/ml (0.34-5.60) 09/25/18 06:20 Urine Source RANDOM 09/27/18 22:45 Urine Color YELLOW 09/27/18 22:45 Urine Clarity CLEAR (CLEAR) 09/27/18 22:45 Urine pH 5.5 (4.6 - 8.0) 09/27/18 22:45 Ur Specific [place] 1.010 (1.005-1.030) 09/27/18 22:45 Urine Protein TRACE mg/dL (NEGATIVE) 09/27/18 22:45 Urine Glucose (UA) 250 mg/dL (NEGATIVE) H 09/27/18 22:45 Urine Ketones NEGATIVE mg/dL (NEGATIVE) 09/27/18 22:45 Urine Blood LARGE (NEGATIVE) H 09/27/18 22:45 Urine Nitrate NEGATIVE (NEGATIVE) 09/27/18 22:45 Urine Bilirubin NEGATIVE (NEGATIVE) 09/27/18 22:45 Urine Urobilinogen 0.2 E.U./dL (0.2 - 1.0) 09/27/18 22:45 Ur Leukocyte Esterase NEGATIVE (NEGATIVE) 09/27/18 22:45 Urine RBC NONE SEEN /hpf (0-5) 09/27/18 22:45 Urine WBC 0-2 /hpf (0-5) 09/27/18 22:45 Ur Epithelial Cells OCCASIONAL /lpf (FEW) 09/27/18 22:45 Urine Bacteria OCCASIONAL /hpf (NONE SEEN) 09/27/18 22:45 Vancomycin Trough 16.8 ug/mL (5-10) H 09/30/18 07:35 Random Vancomycin 17.3 ug/mL (5.0-40.0) 09/28/18 06:00 - Physical Exam Vitals and I&O: Vital Signs Temp 98.8 F 09/30/18 07:56 Pulse 110 09/30/18 09:23 Resp 19 09/30/18 07:56 BP 111/73 09/30/18 07:56 Pulse Ox 100 09/30/18 07:56 Intake & Output 09/29/18 09/30/18 09/30/18 18:59 06:59 18:59 Intake Total 1800 50 Balance 1800 50 Weight (lbs) 119.295 kg Intake: Intake, IV Amount 50 Piperacillin Sodium/ 50 Tazobact 3.375 gm In Sodium Chloride 0.9% 50 ml @ 100 mls/hr IV Q8HR [facility] Rx#:[id number] Oral 1800 Other: # Voids 4 # Bowel Movements 0 Weight Source Bedscale Active Medications: Current Medications Acetaminophen (Tylenol) 650 mg GT Q4HR PRN PRN Reason: Pain or Fever >101 Stop: 11/24/18 09:33 Last Admin: 09/29/18 21:31 Dose: 650 mg Albuterol Sulfate (Albuterol 2.5mg/3ml Neb Ud) 2.5 mg HHN Q6HRT PRN PRN Reason: Shortness of Breath Stop: 11/24/18 09:34 Amiodarone HCl (Cordarone) 200 mg PO BID [facility] Stop: 11/24/18 16:59 Last Admin: 09/30/18 08:15 Dose: Not Given Ascorbic Acid (Vitamin C) 500 mg PO DAILY [facility] Stop: 11/25/18 08:59 Last Admin: 09/30/18 08:15 Dose: Not Given [place] Oil/[place] Balsam/Trypsin (Venelex) 1 appl TP DAILY [facility] Stop: 11/25/18 16:59 Last Admin: 09/30/18 11:14 Dose: Not Given Dextrose (D50w) 50 ml IVP PRN PRN PRN Reason: Blood Glucose less than 70 Stop: 11/24/18 03:46 Dextrose (Glutose 40%) 18.75 gm PO PRN PRN PRN Reason: Blood Glucose less than 70 Stop: 11/24/18 03:46 Digoxin (Lanoxin) 0.25 mg PO DAILY [facility] Stop: 11/29/18 08:59 Last Admin: 09/30/18 09:23 Dose: 0.25 mg Diltiazem HCl (Cardizem) 20 mg IVP Q4HR PRN PRN Reason: A FIB Stop: 11/24/18 11:21 Last Admin: 09/25/18 11:52 Dose: 20 mg Diltiazem HCl (Cardizem) 30 mg PO Q6HR [facility] Stop: 11/29/18 02:29 Last Admin: 09/30/18 06:45 Dose: 30 mg Furosemide (Lasix) 40 mg IVP DAILY [facility] Stop: 11/24/18 08:59 Last Admin: 09/30/18 11:14 Dose: Not Given Glucagon (Glucagen) 1 mg IM PRN PRN PRN Reason: Blood Glucose less than 70 Stop: 11/24/18 03:46 Piperacillin Sod/Tazobactam (Sod 3.375 gm/ Sodium Chloride) 50 mls @ 100 mls/ hr IV Q8HR [facility] Stop: 11/24/18 20:59 Last Admin: 09/30/18 06:06 Dose: Not Given Vancomycin HCl 1.25 gm/ Sodium (Chloride) 250 mls @ 165 mls/hr IV Q24H [facility] Stop: 11/27/18 08:59 Last Admin: 09/30/18 08:16 Dose: Not Given Insulin Human Lispro (Humalog Insulin Sliding Scale) 0 units SUBQ BIDAC [facility]; Protocol Stop: 11/24/18 07:29 Last Admin: 09/30/18 07:29 Dose: 6 units Lorazepam (Ativan) 1 mg IVP Q4HR PRN; Protocol PRN Reason: Anxiety Stop: 11/24/18 02:37 Miscellaneous (Vancomycin Iv Per Pharmacy) 1 ea MC PRN PRN PRN Reason: PROTOCOL Stop: 11/24/18 17:22 Mupirocin (Bactroban Oint) 1 appl NS BID [facility] Stop: 10/01/18 09:01 Last Admin: 09/30/18 08:15 Dose: Not Given Rivaroxaban (Xarelto) 20 mg PO QDPC [facility] Stop: 11/25/18 08:59 Last Admin: 09/30/18 08:15 Dose: Not Given General: weak, demented HEENT: NC/AT, PERRLA Neck: Supple, No JVD Lungs: other (mild sob) Cardiovascular: RRR, Normal S1 Abdomen: soft, non-tender Extremities: edema, erythema, other (cellulitis both upper and lower extremity.) Neurological: no change, disorganized Internal Medicine Assmt/Plan - Assessment Assessment: Cellulitis of both legs. Cellulitis of both arms. Sacral Decubitus Ulcer Stage II. Aggressive Behavior. Renal insufficency, chronic vs acute. Mild UTI. Atrial Fibrillation. Diabetic CKD 3. HTN. Diabetes. Coronary Artery Disease. Congestive Heart Failure. Asthma/Copd. Dementia. - Plan Plan: Continuation of care. Continue antibiotics and present meds as directed Monitor vitals Monitor diet Respiratory treatments prn Followup with ID and Psych. Local skin care and wound care prn Fall precaution Continue present treatment plan. Nutritional Asmnt/Malnutr-PDOC - Dietary Evaluation Malnutrition Findings (Please click <Entered> for more info): Nutritional Asmnt/Malnutrition Start: 09/26/18 15: 55 Text: Status: Complete Freq: Protocol: Document 09/26/18 15:55 LCHENG (Rec: 09/26/18 16:16 LCHENG [email or web address]) Nutritional Asmnt/Malnutrition Patient General Information Nutritional Screening High Risk Consult Diagnosis CHF, cellulitis, UTI Pertinent Medical Hx/Surgical Hx HTN, DM, CAD, CHF, asthma/COPD , dementia Subjective Information Consult received for elevated glucose level. Pt seen lying in bed at time of visit, falling asleep during visit. Per nurse, pt is always hungry and asking for food. glucose 396 at admission noted. Current Diet Order/ Nutrition Support [facility] soft chopped, double portion Pertinent Medications vit C, lasix, humalog, piperacillilin Pertinent Labs 09/26 BUN 56, Cr 2.3, glucose 214, POC 205-302 Nutritional Hx/Data Height 1.83 m Height (Calculated Centimeters) 182.9 Current Weight (lbs) 119.295 kg Weight (Calculated Kilograms) 119.3 Weight (Calculated Grams) 052568.8 [place] Body Weight 178 Body Mass Index (BMI) 35.6 Weight Status Obese GI Symptoms GI Symptoms None Last BM 12/24 x 2 Skin Integrity/Comment: rash to R/L hand, R/L lower extremities, pressure area to sacrum, skin tear to left foot . Mauricio Chris Current %PO Good (75-100%) Estimated Nutritional Goals BEE in Kcals: Adj wt of IBW Calories/Kcals/Kg 23-27 Kcals Calculated 0184-4730 Protein: Adj wt of IBW Protein g/k.7-0.8 Protein Calculated 63-72 Fluid: ml 0-2430ml (1ml/kcal) Nutritional Problem 1. Problem Problem altered nutrition related labs Etiology hyperglycemia, possible renal dysfunction Signs/Symptoms: gluocse 396, POC 205, BUN 56, Cr 2.3 Malnutrition Alert Is there a minimum of two criteria No selected? Query Text:Check all the applicable criteria. A minimum of two criteria are recommended for diagnosis of either severe or non-severe malnutrition. Malnutrition Related to Morbid Obesity Malnutrition related to morbid obesity No Intervention/Recommendation Comments 1. Recommend to add CCHO diet d/t hyperglycemia. MISSY Haynes notified. Consider providing diabetic education when pt available. 2. Monitor PO intake, wt, labs and skin integrity 3. F/U as high risk in 2-3 days Expected Outcomes/Goals Expected Outcomes/Goals 1. PO intake to meet at least 75% of nutritional needs. 2. Wt stability, skin to remain intact, labs to approach WNL.
--- NOTE | 2018-09-30 13:43 | Internal Medicine Prog Note ---
Internal Medicine Subjective - Subjective Service Date: 09/30/18 Patient seen and examined:: chart reviewed Patient is:: awake, verbal, agitated, confused (easily irritable and very anxious.) Patient Complaints of:: other (bilateral lower leg cellulitis, buttock decubiti noted.) Per staff patient has:: no adverse event, no episodes of fall Internal Medicine Objective - Results Result Diagrams: 09/30/18 07:35 09/30/18 07:35 Recent Labs: Laboratory Last Values WBC 7.8 Th/cmm (4.8-10.8) 09/30/18 07:35 RBC 4.39 Mil/cmm (4.30-5.70) 09/30/18 07:35 Hgb 12.7 gm/dL (12-16) 09/30/18 07:35 Hct 38.1 % (41.0-60) L 09/30/18 07:35 MCV 86.6 fl (80-99) 09/30/18 07:35 MCH 29.0 pg (26.0-30.0) 09/30/18 07:35 MCHC Differential 33.5 pg (28.0-36.0) 09/30/18 07:35 RDW 21.9 % (11.5-20.0) H 09/30/18 07:35 Plt Count 193 Th/cmm (150-400) 09/30/18 07:35 MPV 8.5 fl 09/30/18 07:35 Add Manual Diff YES 09/28/18 06:00 Neutrophils % 74.7 % (40.0-80.0) 09/30/18 07:35 Band Neutrophils % 1 % (0-10) 09/28/18 06:00 Lymphocytes % 14.9 % (20.0-50.0) L 09/30/18 07:35 Monocytes % 6.4 % (2.0-10.0) 09/30/18 07:35 Eosinophils % 2.2 % (0.0-5.0) 09/30/18 07:35 Basophils % 1.8 % (0.0-2.0) 09/30/18 07:35 Neutrophils (Manual) 76 % (40-80) 09/28/18 06:00 Lymphocytes 11 % (20-50) L 09/28/18 06:00 Monocytes 6 % (2-10) 09/28/18 06:00 Eosinophils 6 % (0-5) H 09/28/18 06:00 Anisocytosis 2+ 09/28/18 06:00 Specimen Source aterial 09/24/18 21:36 Sample Site LB 09/24/18 21:36 pH 7.32 (7.35-7.45) L 09/24/18 21:36 pCO2 37.2 mmHg (35.0-45.0) 09/24/18 21:36 pO2 27.8 mmHg (80.0-100.0) L* 09/24/18 21:36 HCO3 18.6 mEq/L (20.0-26.0) L 09/24/18 21:36 Base Excess -6.8 mEq/L (-3.0-3.0) L 09/24/18 21:36 O2 Saturation 47.0 % (92.0-100.0) L 09/24/18 21:36 Phuc Test n/a 09/24/18 21:36 Vent Rate n/a 09/24/18 21:36 Inspired O2 21 09/24/18 21:36 Tidal Volume n/a 09/24/18 21:36 PEEP n/a 09/24/18 21:36 Pressure (ins/psv/peep) n/a 09/24/18 21:36 Critical Value dVassel 09/24/18 21:36 Sodium 137 mEq/L (136-145) 09/30/18 07:35 Potassium 3.9 mEq/L (3.5-5.1) 09/30/18 07:35 Chloride 103 mEq/L (98-107) 09/30/18 07:35 Carbon Dioxide 20.7 mEq/L (21.0-31.0) L 09/30/18 07:35 Anion Gap 17.2 (7.0-16.0) H 09/30/18 07:35 BUN 55 mg/dL (7-25) H 09/30/18 07:35 Creatinine 2.3 mg/dL (0.7-1.3) H 09/30/18 07:35 Est GFR ( Amer) 38.2 ml/min (>90) 09/30/18 07:35 Est GFR (Non-Af Amer) 31.5 ml/min 09/30/18 07:35 BUN/Creatinine Ratio 23.9 09/30/18 07:35 Glucose 249 mg/dL (70-105) H 09/30/18 07:35 POC Glucose 238 MG/DL (70 - 105) H 09/30/18 06:51 Calcium 8.8 mg/dL (8.6-10.3) 09/30/18 07:35 Total Bilirubin 1.3 mg/dL (0.3-1.0) H 09/25/18 06:20 AST 13 U/L (13-39) 09/25/18 06:20 ALT 58 U/L (7-52) H 09/25/18 06:20 Alkaline Phosphatase 150 U/L (34-104) H 09/25/18 06:20 Creatine Kinase 34 U/L (30-223) 09/25/18 06:20 Troponin I 0.05 ng/mL (0.01-0.05) 09/25/18 06:20 Total Protein 6.4 gm/dL (6.0-8.3) 09/25/18 06:20 Albumin 3.5 gm/dL (4.2-5.5) L 09/25/18 06:20 Globulin 2.9 gm/dL 09/25/18 06:20 Albumin/Globulin Ratio 1.2 (1.0-1.8) 09/25/18 06:20 Triglycerides 88 mg/dL (<150) 09/25/18 06:20 Cholesterol 99 mg/dL (<200) 09/25/18 06:20 LDL Cholesterol Direct 56 mg/dL (75-193) L 09/25/18 06:20 HDL Cholesterol 38 mg/dL (23-92) 09/25/18 06:20 TSH 5.29 uIU/ml (0.34-5.60) 09/25/18 06:20 Urine Source RANDOM 09/27/18 22:45 Urine Color YELLOW 09/27/18 22:45 Urine Clarity CLEAR (CLEAR) 09/27/18 22:45 Urine pH 5.5 (4.6 - 8.0) 09/27/18 22:45 Ur Specific [place] 1.010 (1.005-1.030) 09/27/18 22:45 Urine Protein TRACE mg/dL (NEGATIVE) 09/27/18 22:45 Urine Glucose (UA) 250 mg/dL (NEGATIVE) H 09/27/18 22:45 Urine Ketones NEGATIVE mg/dL (NEGATIVE) 09/27/18 22:45 Urine Blood LARGE (NEGATIVE) H 09/27/18 22:45 Urine Nitrate NEGATIVE (NEGATIVE) 09/27/18 22:45 Urine Bilirubin NEGATIVE (NEGATIVE) 09/27/18 22:45 Urine Urobilinogen 0.2 E.U./dL (0.2 - 1.0) 09/27/18 22:45 Ur Leukocyte Esterase NEGATIVE (NEGATIVE) 09/27/18 22:45 Urine RBC NONE SEEN /hpf (0-5) 09/27/18 22:45 Urine WBC 0-2 /hpf (0-5) 09/27/18 22:45 Ur Epithelial Cells OCCASIONAL /lpf (FEW) 09/27/18 22:45 Urine Bacteria OCCASIONAL /hpf (NONE SEEN) 09/27/18 22:45 Vancomycin Trough 16.8 ug/mL (5-10) H 09/30/18 07:35 Random Vancomycin 17.3 ug/mL (5.0-40.0) 09/28/18 06:00 - Physical Exam Vitals and I&O: Vital Signs Temp 98.2 F 09/30/18 12:05 Pulse 117 09/30/18 13:24 Resp 18 09/30/18 12:05 BP 114/70 09/30/18 12:05 Pulse Ox 99 09/30/18 12:05 Intake & Output 09/29/18 09/30/18 09/30/18 18:59 06:59 18:59 Intake Total 1800 50 Balance 1800 50 Weight (lbs) 119.295 kg Intake: Intake, IV Amount 50 Piperacillin Sodium/ 50 Tazobact 3.375 gm In Sodium Chloride 0.9% 50 ml @ 100 mls/hr IV Q8HR [facility] Rx#:[id number] Oral 1800 Other: # Voids 4 # Bowel Movements 0 Weight Source Bedscale Active Medications: Current Medications Acetaminophen (Tylenol) 650 mg GT Q4HR PRN PRN Reason: Pain or Fever >101 Stop: 11/24/18 09:33 Last Admin: 09/29/18 21:31 Dose: 650 mg Albuterol Sulfate (Albuterol 2.5mg/3ml Neb Ud) 2.5 mg HHN Q6HRT PRN PRN Reason: Shortness of Breath Stop: 11/24/18 09:34 Amiodarone HCl (Cordarone) 200 mg PO BID [facility] Stop: 11/24/18 16:59 Last Admin: 09/30/18 08:15 Dose: Not Given Ascorbic Acid (Vitamin C) 500 mg PO DAILY [facility] Stop: 11/25/18 08:59 Last Admin: 09/30/18 08:15 Dose: Not Given [place] Oil/[place] Balsam/Trypsin (Venelex) 1 appl TP DAILY [facility] Stop: 11/25/18 16:59 Last Admin: 09/30/18 11:14 Dose: Not Given Dextrose (D50w) 50 ml IVP PRN PRN PRN Reason: Blood Glucose less than 70 Stop: 11/24/18 03:46 Dextrose (Glutose 40%) 18.75 gm PO PRN PRN PRN Reason: Blood Glucose less than 70 Stop: 11/24/18 03:46 Digoxin (Lanoxin) 0.25 mg PO DAILY [facility] Stop: 11/29/18 08:59 Last Admin: 09/30/18 09:23 Dose: 0.25 mg Diltiazem HCl (Cardizem) 20 mg IVP Q4HR PRN PRN Reason: A FIB Stop: 11/24/18 11:21 Last Admin: 09/25/18 11:52 Dose: 20 mg Diltiazem HCl (Cardizem) 30 mg PO Q6HR [facility] Stop: 11/29/18 02:29 Last Admin: 09/30/18 13:24 Dose: 30 mg Furosemide (Lasix) 40 mg IVP DAILY [facility] Stop: 11/24/18 08:59 Last Admin: 09/30/18 11:14 Dose: Not Given Glucagon (Glucagen) 1 mg IM PRN PRN PRN Reason: Blood Glucose less than 70 Stop: 11/24/18 03:46 Piperacillin Sod/Tazobactam (Sod 3.375 gm/ Sodium Chloride) 50 mls @ 100 mls/ hr IV Q8HR [facility] Stop: 11/24/18 20:59 Last Admin: 09/30/18 13:14 Dose: Not Given Vancomycin HCl 1.25 gm/ Sodium (Chloride) 250 mls @ 165 mls/hr IV Q24H [facility] Stop: 11/27/18 08:59 Last Admin: 09/30/18 08:16 Dose: Not Given Insulin Human Lispro (Humalog Insulin Sliding Scale) 0 units SUBQ BIDAC [facility]; Protocol Stop: 11/24/18 07:29 Last Admin: 09/30/18 07:29 Dose: 6 units Lorazepam (Ativan) 1 mg IVP Q4HR PRN; Protocol PRN Reason: Anxiety Stop: 11/24/18 02:37 Miscellaneous (Vancomycin Iv Per Pharmacy) 1 ea MC PRN PRN PRN Reason: PROTOCOL Stop: 11/24/18 17:22 Mupirocin (Bactroban Oint) 1 appl NS BID [facility] Stop: 10/01/18 09:01 Last Admin: 09/30/18 08:15 Dose: Not Given Rivaroxaban (Xarelto) 20 mg PO QDPC [facility] Stop: 11/25/18 08:59 Last Admin: 09/30/18 08:15 Dose: Not Given General: weak, demented HEENT: NC/AT, PERRLA Neck: Supple, No JVD Lungs: other (mild sob) Cardiovascular: RRR, Normal S1 Abdomen: soft, non-tender Extremities: edema, erythema, other (cellulitis both upper and lower extremity.) Neurological: no change, disorganized Internal Medicine Assmt/Plan - Assessment Assessment: Cellulitis of both legs. Cellulitis of both arms. Sacral Decubitus Ulcer Stage II. Aggressive Behavior. Anxious. Renal insufficency, chronic vs acute. Mild UTI. Atrial Fibrillation. Diabetic CKD 3. HTN. Diabetes. Coronary Artery Disease. Congestive Heart Failure. Asthma/Copd. Dementia. - Plan Plan: Continuation of care. Continue antibiotics and present meds as directed Monitor vitals Monitor diet Respiratory treatments prn Followup with ID and Psych. Local skin care and wound care prn Fall precaution Continue present treatment plan. Nutritional Asmnt/Malnutr-PDOC - Dietary Evaluation Malnutrition Findings (Please click <Entered> for more info): Nutritional Asmnt/Malnutrition Start: 09/26/18 15: 55 Text: Status: Complete Freq: Protocol: Document 09/26/18 15:55 LCHENG (Rec: 09/26/18 16:16 MARTHAG [email or web address]) Nutritional Asmnt/Malnutrition Patient General Information Nutritional Screening High Risk Consult Diagnosis CHF, cellulitis, UTI Pertinent Medical Hx/Surgical Hx HTN, DM, CAD, CHF, asthma/COPD , dementia Subjective Information Consult received for elevated glucose level. Pt seen lying in bed at time of visit, falling asleep during visit. Per nurse, pt is always hungry and asking for food. glucose 396 at admission noted. Current Diet Order/ Nutrition Support [facility] soft chopped, double portion Pertinent Medications vit C, lasix, humalog, piperacillilin Pertinent Labs 09/26 BUN 56, Cr 2.3, glucose 214, POC 205-302 Nutritional Hx/Data Height 1.83 m Height (Calculated Centimeters) 182.9 Current Weight (lbs) 119.295 kg Weight (Calculated Kilograms) 119.3 Weight (Calculated Grams) 650650.8 [place] Body Weight 178 Body Mass Index (BMI) 35.6 Weight Status Obese GI Symptoms GI Symptoms None Last BM 12/24 x 2 Skin Integrity/Comment: rash to R/L hand, R/L lower extremities, pressure area to sacrum, skin tear to left foot . Mauricio Chris Current %PO Good (75-100%) Estimated Nutritional Goals BEE in Kcals: Adj wt of IBW Calories/Kcals/Kg 23-27 Kcals Calculated 0049-9408 Protein: Adj wt of IBW Protein g/k.7-0.8 Protein Calculated 63-72 Fluid: ml 0-2430ml (1ml/kcal) Nutritional Problem 1. Problem Problem altered nutrition related labs Etiology hyperglycemia, possible renal dysfunction Signs/Symptoms: gluocse 396, POC 205, BUN 56, Cr 2.3 Malnutrition Alert Is there a minimum of two criteria No selected? Query Text:Check all the applicable criteria. A minimum of two criteria are recommended for diagnosis of either severe or non-severe malnutrition. Malnutrition Related to Morbid Obesity Malnutrition related to morbid obesity No Intervention/Recommendation Comments 1. [facility]/t hyperglycemia. MISSY Haynes notified. Consider providing diabetic education when pt available. 2. Monitor PO intake, wt, labs and skin integrity 3. F/U as high risk in 2-3 days Expected Outcomes/Goals Expected Outcomes/Goals 1. PO intake to meet at least 75% of nutritional needs. 2. Wt stability, skin to remain intact, labs to approach WNL.
--- NOTE | 2018-09-30 13:48 | Infectious Disease Prog Note ---
Infectious Disease Subjective - Review of Systems Service Date: 09/30/18 Subjective: There is no new change, no fever. Infectious Disease Objective - Results Result Diagrams: 09/30/18 07:35 09/30/18 07:35 Recent Labs: Laboratory Last Values WBC 7.8 Th/cmm (4.8-10.8) 09/30/18 07:35 RBC 4.39 Mil/cmm (4.30-5.70) 09/30/18 07:35 Hgb 12.7 gm/dL (12-16) 09/30/18 07:35 Hct 38.1 % (41.0-60) L 09/30/18 07:35 MCV 86.6 fl (80-99) 09/30/18 07:35 MCH 29.0 pg (26.0-30.0) 09/30/18 07:35 MCHC Differential 33.5 pg (28.0-36.0) 09/30/18 07:35 RDW 21.9 % (11.5-20.0) H 09/30/18 07:35 Plt Count 193 Th/cmm (150-400) 09/30/18 07:35 MPV 8.5 fl 09/30/18 07:35 Add Manual Diff YES 09/28/18 06:00 Neutrophils % 74.7 % (40.0-80.0) 09/30/18 07:35 Band Neutrophils % 1 % (0-10) 09/28/18 06:00 Lymphocytes % 14.9 % (20.0-50.0) L 09/30/18 07:35 Monocytes % 6.4 % (2.0-10.0) 09/30/18 07:35 Eosinophils % 2.2 % (0.0-5.0) 09/30/18 07:35 Basophils % 1.8 % (0.0-2.0) 09/30/18 07:35 Neutrophils (Manual) 76 % (40-80) 09/28/18 06:00 Lymphocytes 11 % (20-50) L 09/28/18 06:00 Monocytes 6 % (2-10) 09/28/18 06:00 Eosinophils 6 % (0-5) H 09/28/18 06:00 Anisocytosis 2+ 09/28/18 06:00 Specimen Source aterial 09/24/18 21:36 Sample Site LB 09/24/18 21:36 pH 7.32 (7.35-7.45) L 09/24/18 21:36 pCO2 37.2 mmHg (35.0-45.0) 09/24/18 21:36 pO2 27.8 mmHg (80.0-100.0) L* 09/24/18 21:36 HCO3 18.6 mEq/L (20.0-26.0) L 09/24/18 21:36 Base Excess -6.8 mEq/L (-3.0-3.0) L 09/24/18 21:36 O2 Saturation 47.0 % (92.0-100.0) L 09/24/18 21:36 Phuc Test n/a 09/24/18 21:36 Vent Rate n/a 09/24/18 21:36 Inspired O2 21 09/24/18 21:36 Tidal Volume n/a 09/24/18 21:36 PEEP n/a 09/24/18 21:36 Pressure (ins/psv/peep) n/a 09/24/18 21:36 Critical Value dVassel 09/24/18 21:36 Sodium 137 mEq/L (136-145) 09/30/18 07:35 Potassium 3.9 mEq/L (3.5-5.1) 09/30/18 07:35 Chloride 103 mEq/L (98-107) 09/30/18 07:35 Carbon Dioxide 20.7 mEq/L (21.0-31.0) L 09/30/18 07:35 Anion Gap 17.2 (7.0-16.0) H 09/30/18 07:35 BUN 55 mg/dL (7-25) H 09/30/18 07:35 Creatinine 2.3 mg/dL (0.7-1.3) H 09/30/18 07:35 Est GFR ( Amer) 38.2 ml/min (>90) 09/30/18 07:35 Est GFR (Non-Af Amer) 31.5 ml/min 09/30/18 07:35 BUN/Creatinine Ratio 23.9 09/30/18 07:35 Glucose 249 mg/dL (70-105) H 09/30/18 07:35 POC Glucose 238 MG/DL (70 - 105) H 09/30/18 06:51 Calcium 8.8 mg/dL (8.6-10.3) 09/30/18 07:35 Total Bilirubin 1.3 mg/dL (0.3-1.0) H 09/25/18 06:20 AST 13 U/L (13-39) 09/25/18 06:20 ALT 58 U/L (7-52) H 09/25/18 06:20 Alkaline Phosphatase 150 U/L (34-104) H 09/25/18 06:20 Creatine Kinase 34 U/L (30-223) 09/25/18 06:20 Troponin I 0.05 ng/mL (0.01-0.05) 09/25/18 06:20 Total Protein 6.4 gm/dL (6.0-8.3) 09/25/18 06:20 Albumin 3.5 gm/dL (4.2-5.5) L 09/25/18 06:20 Globulin 2.9 gm/dL 09/25/18 06:20 Albumin/Globulin Ratio 1.2 (1.0-1.8) 09/25/18 06:20 Triglycerides 88 mg/dL (<150) 09/25/18 06:20 Cholesterol 99 mg/dL (<200) 09/25/18 06:20 LDL Cholesterol Direct 56 mg/dL (75-193) L 09/25/18 06:20 HDL Cholesterol 38 mg/dL (23-92) 09/25/18 06:20 TSH 5.29 uIU/ml (0.34-5.60) 09/25/18 06:20 Urine Source RANDOM 09/27/18 22:45 Urine Color YELLOW 09/27/18 22:45 Urine Clarity CLEAR (CLEAR) 09/27/18 22:45 Urine pH 5.5 (4.6 - 8.0) 09/27/18 22:45 Ur Specific [place] 1.010 (1.005-1.030) 09/27/18 22:45 Urine Protein TRACE mg/dL (NEGATIVE) 09/27/18 22:45 Urine Glucose (UA) 250 mg/dL (NEGATIVE) H 09/27/18 22:45 Urine Ketones NEGATIVE mg/dL (NEGATIVE) 09/27/18 22:45 Urine Blood LARGE (NEGATIVE) H 09/27/18 22:45 Urine Nitrate NEGATIVE (NEGATIVE) 09/27/18 22:45 Urine Bilirubin NEGATIVE (NEGATIVE) 09/27/18 22:45 Urine Urobilinogen 0.2 E.U./dL (0.2 - 1.0) 09/27/18 22:45 Ur Leukocyte Esterase NEGATIVE (NEGATIVE) 09/27/18 22:45 Urine RBC NONE SEEN /hpf (0-5) 09/27/18 22:45 Urine WBC 0-2 /hpf (0-5) 09/27/18 22:45 Ur Epithelial Cells OCCASIONAL /lpf (FEW) 09/27/18 22:45 Urine Bacteria OCCASIONAL /hpf (NONE SEEN) 09/27/18 22:45 Vancomycin Trough 16.8 ug/mL (5-10) H 09/30/18 07:35 Random Vancomycin 17.3 ug/mL (5.0-40.0) 09/28/18 06:00 - Physical Exam Vitals and I&O: Vital Signs Temp 98.2 F 09/30/18 12:05 Pulse 117 09/30/18 13:24 Resp 18 09/30/18 12:05 BP 114/70 09/30/18 12:05 Pulse Ox 99 09/30/18 12:05 Intake & Output 09/29/18 09/30/18 09/30/18 18:59 06:59 18:59 Intake Total 1800 50 Balance 1800 50 Weight (lbs) 119.295 kg Intake: Intake, IV Amount 50 Piperacillin Sodium/ 50 Tazobact 3.375 gm In Sodium Chloride 0.9% 50 ml @ 100 mls/hr IV Q8HR [facility] Rx#:[id number] Oral 1800 Other: # Voids 4 # Bowel Movements 0 Weight Source Bedscale Active Medications: Current Medications Acetaminophen (Tylenol) 650 mg GT Q4HR PRN PRN Reason: Pain or Fever >101 Stop: 11/24/18 09:33 Last Admin: 09/29/18 21:31 Dose: 650 mg Albuterol Sulfate (Albuterol 2.5mg/3ml Neb Ud) 2.5 mg HHN Q6HRT PRN PRN Reason: Shortness of Breath Stop: 11/24/18 09:34 Amiodarone HCl (Cordarone) 200 mg PO BID [facility] Stop: 11/24/18 16:59 Last Admin: 09/30/18 08:15 Dose: Not Given Ascorbic Acid (Vitamin C) 500 mg PO DAILY [facility] Stop: 11/25/18 08:59 Last Admin: 09/30/18 08:15 Dose: Not Given [place] Oil/Monegasque Balsam/Trypsin (Venelex) 1 appl TP DAILY [facility] Stop: 11/25/18 16:59 Last Admin: 09/30/18 11:14 Dose: Not Given Dextrose (D50w) 50 ml IVP PRN PRN PRN Reason: Blood Glucose less than 70 Stop: 11/24/18 03:46 Dextrose (Glutose 40%) 18.75 gm PO PRN PRN PRN Reason: Blood Glucose less than 70 Stop: 11/24/18 03:46 Digoxin (Lanoxin) 0.25 mg PO DAILY [facility] Stop: 11/29/18 08:59 Last Admin: 09/30/18 09:23 Dose: 0.25 mg Diltiazem HCl (Cardizem) 20 mg IVP Q4HR PRN PRN Reason: A FIB Stop: 11/24/18 11:21 Last Admin: 09/25/18 11:52 Dose: 20 mg Diltiazem HCl (Cardizem) 30 mg PO Q6HR [facility] Stop: 11/29/18 02:29 Last Admin: 09/30/18 13:24 Dose: 30 mg Furosemide (Lasix) 40 mg IVP DAILY [facility] Stop: 11/24/18 08:59 Last Admin: 09/30/18 11:14 Dose: Not Given Glucagon (Glucagen) 1 mg IM PRN PRN PRN Reason: Blood Glucose less than 70 Stop: 11/24/18 03:46 Piperacillin Sod/Tazobactam (Sod 3.375 gm/ Sodium Chloride) 50 mls @ 100 mls/ hr IV Q8HR [facility] Stop: 11/24/18 20:59 Last Admin: 09/30/18 13:14 Dose: Not Given Vancomycin HCl 1.25 gm/ Sodium (Chloride) 250 mls @ 165 mls/hr IV Q24H [facility] Stop: 11/27/18 08:59 Last Admin: 09/30/18 08:16 Dose: Not Given Insulin Human Lispro (Humalog Insulin Sliding Scale) 0 units SUBQ BIDAC [facility]; Protocol Stop: 11/24/18 07:29 Last Admin: 09/30/18 07:29 Dose: 6 units Lorazepam (Ativan) 1 mg IVP Q4HR PRN; Protocol PRN Reason: Anxiety Stop: 11/24/18 02:37 Miscellaneous (Vancomycin Iv Per Pharmacy) 1 ea MC PRN PRN PRN Reason: PROTOCOL Stop: 11/24/18 17:22 Mupirocin (Bactroban Oint) 1 appl NS BID [facility] Stop: 10/01/18 09:01 Last Admin: 09/30/18 08:15 Dose: Not Given Rivaroxaban (Xarelto) 20 mg PO QDPC [facility] Stop: 11/25/18 08:59 Last Admin: 09/30/18 08:15 Dose: Not Given General: no acute distress, well developed, well nourished HEENT: atraumatic, normocephalic, PERRLA, EOMI Neck: supple, no thyromegaly Cardiovascular: S1S2, regular Lungs: clear to auscultation bilaterally, clear to percussion Abdomen: soft, no tender, no distended Extremities: other (swelling and redness better.), no cyanosis, no clubbing, no edema, no lines Neurological: awake, alert, oriented Skin: intact Infectious Disease Assmt/Plan - Assessment Assessment: 1. Cellulitis of both legs. improving. 2. Cellulitis of both arms. 3. Congestive heart failure. 4. Sacral decubitus ulcer stage II. 5. Aggressive behavior. 6. Dementia. 7. Hypertension. 8. Coronary artery disease. 9. Renal insufficiency, chronic versus acute. 10. Chronic obstructive pulmonary disease, asthma. 11. 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 - Plan Plan: CPM. change antibiotics to clinda and levaquin po for 7 days. Nutritional Asmnt/Malnutr-PDOC - Dietary Evaluation Malnutrition Findings (Please click <Entered> for more info): Nutritional Asmnt/Malnutrition Start: 09/26/18 15: 55 Text: Status: Complete Freq: Protocol: Document 09/26/18 15:55 LCHENG (Rec: 09/26/18 16:16 [email or web address] [id number]) Nutritional Asmnt/Malnutrition Patient General Information Nutritional Screening High Risk Consult Diagnosis CHF, cellulitis, UTI Pertinent Medical Hx/Surgical Hx HTN, DM, CAD, CHF, asthma/COPD , dementia Subjective Information Consult received for elevated glucose level. Pt seen lying in bed at time of visit, falling asleep during visit. Per nurse, pt is always hungry and asking for food. glucose 396 at admission noted. Current Diet Order/ Nutrition Support [facility] soft chopped, double portion Pertinent Medications vit C, lasix, humalog, piperacillilin Pertinent Labs 09/26 BUN 56, Cr 2.3, glucose 214, POC 205-302 Nutritional Hx/Data Height 1.83 m Height (Calculated Centimeters) 182.9 Current Weight (lbs) 119.295 kg Weight (Calculated Kilograms) 119.3 Weight (Calculated Grams) 242081.8 [place] Body Weight 178 Body Mass Index (BMI) 35.6 Weight Status Obese GI Symptoms GI Symptoms None Last BM 12/24 x 2 Skin Integrity/Comment: rash to R/L hand, R/L lower extremities, pressure area to sacrum, skin tear to left foot . Mauricio Chris Current %PO Good (75-100%) Estimated Nutritional Goals BEE in Kcals: Adj wt of IBW Calories/Kcals/Kg 23-27 Kcals Calculated 8285-9250 Protein: Adj wt of IBW Protein g/k.7-0.8 Protein Calculated 63-72 Fluid: ml 2069-243ml (1ml/kcal) Nutritional Problem 1. Problem Problem altered nutrition related labs Etiology hyperglycemia, possible renal dysfunction Signs/Symptoms: gluocse 396, POC 205, BUN 56, Cr 2.3 Malnutrition Alert Is there a minimum of two criteria No selected? Query Text:Check all the applicable criteria. A minimum of two criteria are recommended for diagnosis of either severe or non-severe malnutrition. Malnutrition Related to Morbid Obesity Malnutrition related to morbid obesity No Intervention/Recommendation Comments 1. [facility]/t hyperglycemia. MISSY Haynes notified. Consider providing diabetic education when pt available. 2. Monitor PO intake, wt, labs and skin integrity 3. F/U as high risk in 2-3 days Expected Outcomes/Goals Expected Outcomes/Goals 1. PO intake to meet at least 75% of nutritional needs. 2. Wt stability, skin to remain intact, labs to approach WNL.
== END 2018-09-30 22:30 | DRG 720 ==
LOC: ER 21:06 → TELE 09-25 01:50 → MSI 09-30 17:00
PROVIDERS: ADMIT Internal Medicine; ATTEND Internal Medicine
DX: A41.9 Sepsis, unspecified organism (principal); E11.00 Type 2 diabetes mellitus with hyperosmolarity without nonketotic hyperglycemic-hyperosmolar coma (NKHHC); G93.40 Encephalopathy, unspecified; L89.152 Pressure ulcer of sacral region, stage 2; I13.0 Hypertensive heart and chronic kidney disease with heart failure and stage 1 through stage 4 chronic kidney disease, or unspecified chronic kidney disease; E11.22 Type 2 diabetes mellitus with diabetic chronic kidney disease; I50.9 Heart failure, unspecified; F03.90 Unspecified dementia, unspecified severity, without behavioral disturbance, psychotic disturbance, mood disturbance, and anxiety; N18.3 Chronic kidney disease, stage 3 (moderate); L03.116 Cellulitis of left lower limb; L03.115 Cellulitis of right lower limb; I48.91 Unspecified atrial fibrillation; I25.10 Atherosclerotic heart disease of native coronary artery without angina pectoris; J44.1 Chronic obstructive pulmonary disease with (acute) exacerbation; L03.114 Cellulitis of left upper limb; L03.113 Cellulitis of right upper limb; N39.0 Urinary tract infection, site not specified; F32.1 Major depressive disorder, single episode, moderate; B96.20 Unspecified Escherichia coli [E. coli] as the cause of diseases classified elsewhere; Z16.12 Extended spectrum beta lactamase (ESBL) resistance
CPT/HCPCS: 36415-UA; 36600-90; 71045-TC; 72220-TC; 80048-TC; 80053-TC; 80061-TC; 80202-TC; 81001-TC; 82550-TC; 82803-TC; 82948-90; 83036-90; 84443-TC; 84484-TC; 85007-TC; 85025-TC; 87086-90; 90779; 93005; 94760; J0696; J1940; J2543; J3370; J7040; Z7610

== ENCOUNTER 2018-10-02 13:58 | Emergency (ER) | payer OTHER ==
--- NOTE | 2018-10-02 14:23 | ED Physician Chart ---
ED Chief Complaint/HPI - Patient Information Date Seen:: 10/02/18 Time Seen:: 14:00 Chief Complaint:: Leg Swelling History of Present Illness:: onset x 10 days of leg redness, swelling, pain, and erythema; pt denies trauma, H/As, S/T, neck pain, C/P, cough, SOB, Abd. Pain, A/N/V/D/C, fever, chills, or urinary s/s; pt's last tetanus shot: < 5 years; UTD Allergies:: Allergies Allergy/AdvReac Type Severity Reaction Status Date / Time No Known Allergies Allergy Verified 09/24/18 21:08 Historian:: Patient, EMS Review:: Nurse's Note Reviewed, Old Chart Reviewed, EMS run form Reviewed ED Review of Systems - Review of Systems General/Constitutional: Fever, No chills, No weight loss, No weakness, No diaphoresis, No edema, No loss of appetite Skin: Skin lesions, Rash, No bruising Head: No headache, No light-headedness Eyes: No loss of vision, No pain, No diplopia ENT: No earache, No nasal drainage, No sore throat, No tinnitus Neck: No neck pain, No swelling, No thyromegaly, No stiffness, No mass noted Cardio Vascular: No chest pain, No palpitations, PND, orthopnea, edema Pulmonary: SOB, No cough, No sputum, No wheezing GI: No nausea, No vomiting, No diarrhea, No pain, No melena, No hematochezia, No constipation, No hematemesis G/U: No dysuria, No frequency, No hematuria, No nacturia Musculoskeletal: No bone or joint pain, No back pain, No muscle pain Endocrine: No polyuria, No polydipsia Psychiatric: No prior psych history, No depression, No anxiety, No suicidal ideation, No homicidal ideation, No auditory hallucination, No visual hallucination Hematopoietic: No bruising, No lymphadenopathy Allergic/Immuno: No urticaria, No angioedema Neurological: No syncope, No focal symptoms, No weakness, No paresthesia, No headache, No seizure, No dizziness, No confusion, No vertigo ED Past Medical History - Past Medical History Obtainable: Yes Past Medical History: HTN, DM, CAD, CHF, Asthma/COPD, Dyslipidemia, PUD/GERD Family History: Diabetes Melitus, HTN Social History: Non Smoker, No Alcohol, No Drug Use, , Care Facility Surgical History: None Psychiatricy History: None Medication: Reviewed Family Medical History - Family Member Mother History Unknown: Yes ED Physical Exam - Physical Examination General/Constitutional: Awake, Well-developed, well-nourished, Alert, No distress, GCS 15, Non-toxic appearing, Ambulatory Head: Atraumatic Eyes: Lids, conjuctiva normal, PERRL, EOMI Skin: Nl inspection, No ecchymosis, Well hydrated, No lymphadenopathy Other Skin comments:: + Bilateral LE Cellulitis ENMT: External ears, nose nl, TM canals nl, Nasal exam nl, Lips, teeth, gums nl , Oropharynx nl, Tonsils nl Neck: Nontender, Full ROM w/o pain, No JVD, No nuchal rigidity, No bruit, No mass, No stridor Respiratory: Nl effort/Exclusion, Clear to Auscultation, No Wheeze/Rhonchi/Rales Cardio Vascular: No murmur, gallop, rubs, NL S1 S2, Carotid/Femoral/Distal pulses equal bilaterally Other Cardio Vascular comments:: Irregular Irregular Rhythm GI: No tenderness/rebounding/guarding, No organomegaly, No hernia, Normal BS's, Nondistended, No mass/bruits, No McBurney tenderness : No CVA tenderness Extremities: No tenderness or effusion, Full ROM, normal strength in all extremities, Normal digits & nails Other Extremities comments:: + 3+ PTE Neuro/Psych: Alert/oriented, DTR's symmetric, Normal sensory exam, Normal motor strength, Judgement/insight normal, Mood normal, Normal gait, No focal deficits Misc: Normal back, No paraspinal tenderness ED Labs/Radiology/EKG Results - Lab Results Comments:: Reviewed - Radiology Results Comments:: CXR: CM; CHF; + Infiltrate; U/S: no DVT - EKG Interpretations EKG Time:: 14:12 Rate & Rhythm: 129; Atrial Fibrillation Comments:: non-specific st-t changes ED Septic Shock - . Is Septic Shock (SBP<90, OR Lactate>4 mmol\L) present?: No ED Reassessment (Disposition) - Reassessment Reassessment Condition:: Improved - Diagnosis Diagnosis:: Leg Swelling; Cellulitis; Sepsis; Anemia; Lactic Acidosis; Elevated Lactic Acid ; Hyponatremia; Tachycardia; Dehydration; Renal Insuffiency; Pre-Renal Azotemia ; Hypoalbuminemia; Hyperglycemia; DM; PNA; Atrial Fibrillation - Aftercare/Follow up Instructions Aftercare/Follow-Up Instructions:: Counseled pt regarding lab results/diagnosis & need follow up, Counseled pt & family regarding lab results/diagnosis & need follow up - Patient Disposition Discharge/Transfer:: Acute Care w/in this hosp Accepting Physician:: Dr. Nixon Time Called:: 1600 Time Responded:: 16:00 Admitted to:: Telemetry Spoke to:: Dr. Nixon Admitting Medical Physician:: Dr. Nixon Condition at Disposition:: Stable, Improved
[2018-10-02 14:51] LABS: % BASOPHILS 1.3 % (0.0-2.0); % EOSINOPHILS 1.7 % (0.0-5.0); % LYMPHOCYTES 13.5 % (20.0-50.0); % MONOCYTES 6.1 % (2.0-10.0); % NEUTROPHILS 77.4 % (40.0-80.0); BASOPHILE ABSOLUTE 0.1 Th/cumm (0-0.2); EOSINOPHILE ABSOLUTE 0.1 Th/cmm (0.1-0.4); HEMATOCRIT 36.2 % (41.0-60); HEMOGLOBIN 11.8 gm/dL (12-16); LYMPHOCYTE ABSOLUTE 0.9 Th/cmm (1.5-3.0); MEAN CELL VOLUME 88.6 fl (80-99); MEAN CORPUSCULAR HEMOGLOBIN 28.8 pg (26.0-30.0); MEAN CORPUSCULAR HGB CONC 32.5 pg (28.0-36.0); MONOCYTE ABSOLUTE 0.4 Th/cmm (0.3-1.0); NEUTROPHILE ABSOLUTE 5.5 Th/cmm (1.8-8.0); PLATELET COUNT 183 Th/cmm (150-400); RED BLOOD COUNT 4.09 Mil/cmm (4.30-5.70); RED CELL DISTRIBUTION WIDTH 20.8 % (11.5-20.0)
[2018-10-02 15:04] LABS: INR 1.39 (0.5-1.4); PROTHROMBIN TIME (TEST) 14.2 SECONDS (9.5-11.5)
[2018-10-02 15:07] LABS: ALBUMIN 3.2 gm/dL (4.2-5.5); ANION GAP 17.5 (7.0-16.0); BILIRUBIN,TOTAL 1.5 mg/dL (0.3-1.0); CALCIUM SERUM 8.8 mg/dL (8.6-10.3); CARBON DIOXIDE 18.9 mEq/L (21.0-31.0); CREATININE - SERUM 2.5 mg/dL (0.7-1.3); GFR AFRICAN-AMERICAN 34.7 ml/min (>90); GFR NON AFRICAN-AMERICAN 28.6 ml/min; POTASSIUM SERUM 4.4 mEq/L (3.5-5.1); TOTAL PROTEIN,SERUM 6.5 gm/dL (6.0-8.3)
[2018-10-02 15:08] LABS: TROP I 0.05 ng/mL (0.01-0.05)
[2018-10-02 15:55] LABS: URINE SOURCE MIDSTREAM
[2018-10-02 15:57] LABS: URINE BILIRUBIN NEGATIVE (NEGATIVE); URINE BLOOD LARGE (NEGATIVE); URINE GLUCOSE (UA) NEGATIVE (NEGATIVE); URINE KETONE NEGATIVE (NEGATIVE); URINE LEUKOCYTE ESTERASE TRACE (NEGATIVE); URINE MICROSCOPIC INDICATED? YES; URINE NITRATE NEGATIVE (NEGATIVE); URINE PH 5.5 (4.6 - 8.0); URINE PROTEIN TRACE mg/dL (NEGATIVE); URINE UROBILINOGEN 0.2 E.U./dL (0.2 - 1.0)
[2018-10-02 15:59] LABS: URINE CLARITY CLEAR (CLEAR); URINE COLOR YELLOW
[2018-10-02 16:02] LABS: URINE BACTERIA 1+ /hpf (NONE SEEN); URINE EPITHELIAL CELLS FEW /lpf (FEW)
[2018-10-02] MEDS ORDERED: Dextrose 50% 50 mL Abboject IVP PRN (16:15)
[2018-10-02] MEDS ORDERED: GLUCAGON HCl 1 MG KIT IM PRN (16:15)
[2018-10-02] MEDS ORDERED: INSULIN LISPRO SLIDING SCALE 100 UNITS/ML UNIT SUBQ SCH (16:30)
[2018-10-02] MEDS ORDERED: Sodium Chloride 0.45% 1,000 ML IV SCH (16:30)
[2018-10-02] MEDS ORDERED: Albuterol Nebulizer 2.5mg/3mL HHN PRN (17:21)
--- NOTE | 2018-10-02 18:16 | History & Physical ---
ADMIT DATE: 10/02/2018 HISTORY OF PRESENT ILLNESS: The patient came to the ER around 2:00. I got a call from Dr. Zi Barrett, saying the patient has very very bad looking cellulitis as well as the patient is very short of breath and the patient is also in congestive heart failure. The patient was seen in the Emergency Room for acute increasing in the cellulitis. He was in congestive heart failure and was admitted. REVIEW OF SYSTEMS: The patient is confused and agitated. No neck pain, no cough. System review is otherwise negative. PAST MEDICAL HISTORY: Included hypertension, diabetes, coronary artery disease, hypertension, hyperlipidemia, asthma, COPD, and CHF. PHYSICAL EXAMINATION: GENERAL: Awake, alert, male patient, seems to be a little confused and little aggressive. HEAD: Normal. ENT: Normal. NECK: Supple, nontender. LUNGS: Bilateral rales. CARDIOVASCULAR SYSTEM: S1, S2 heard. ABDOMEN: Soft. The patient has 4+ pitting edema and lot of leg swelling. DIAGNOSTIC DATA: Chest x-ray showed infiltrates, evidence of congestive heart failure, and cardiomyopathy. EKG showed atrial fibrillation. DIAGNOSES: Acute cellulitis, rule out sepsis, severe atrial fibrillation, congestive heart failure, cardiomyopathy, history of psychosis, history of hypertension, history of diabetes, history of coronary artery disease, history of asthma, chronic obstructive pulmonary disease, history of hyperlipidemia, history of peptic ulcer, history of gastroesophageal reflux was made. PLAN: The patient will be admitted and I will go ahead and Dr. Jose Harrison see the patient as well as Dr. Liu Harrison for ID consult. We will do an echocardiogram in the morning. I will follow the patient. JOB# [id number]
--- NOTE | 2018-10-03 08:04 | Diagnostic Imaging Report ---
Bilateral lower extremity Doppler venous ultrasound exam HISTORY: Pain/swelling Sonographic sector images were obtained through the deep venous systems of both legs. Associated Doppler data was obtained. The exam is technically limited due to swelling of the extremities. The exam demonstrates patency of the common femoral, superficial femoral, popliteal, and posterior tibial veins bilaterally. Specifically, no thrombus is seen. There are normal compressibility and augmentation responses. IMPRESSION: 1. Somewhat limited exam technically due to leg swelling. No definite evidence of deep vein thrombophlebitis.
--- NOTE | 2018-10-03 08:04 | Diagnostic Imaging Report ---
Portable chest x-ray HISTORY: Pain Compared with a prior exam of September 24, 2018, there is persistent marked cardiomegaly. There is pulmonary vascular redistribution consistent with cardiac decompensation. The left lung base is the [id number]. No definite focal pulmonary processes. IMPRESSION: 1. Marked cardiomegaly with evidence of congestive heart failure.
[2018-10-03] MEDS ORDERED: Non-Formulary Item 1 EA (Apixaban [Eliquis] 5 MG) PO SCH (09:00)
== END 2018-10-02 18:30 ==
LOC: ER 13:58
DX: A41.9 Sepsis, unspecified organism (principal); L03.116 Cellulitis of left lower limb; L03.115 Cellulitis of right lower limb; I48.91 Unspecified atrial fibrillation; E11.65 Type 2 diabetes mellitus with hyperglycemia; J18.9 Pneumonia, unspecified organism; E88.09 Other disorders of plasma-protein metabolism, not elsewhere classified; E87.1 Hypo-osmolality and hyponatremia; E86.0 Dehydration; E87.2 Acidosis; D64.9 Anemia, unspecified; I11.0 Hypertensive heart disease with heart failure; I50.9 Heart failure, unspecified; I25.10 Atherosclerotic heart disease of native coronary artery without angina pectoris; K21.9 Gastro-esophageal reflux disease without esophagitis
CPT/HCPCS: 99284; 96365; 94760; 93005; 93970; 71045; 84484; 36415; 83605 ×2; 85025; 85610; 85730; 81001; 82550; 80053; 87040 ×2; J3370; Z7502